=== PATIENT | female | born 1985 | race Caucasian/White ===

== ENCOUNTER 2018-01-22 11:25 | Emergency (ER) | payer BC, OTHER ==
[2018-01-22 11:33] VITALS: BP 133/85; PULSE 86; RESP 20; TEMP 98.1
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
[2018-01-22] MEDS ORDERED: IBUPROFEN 600 MG TAB PO STA (11:58)
== END 2018-01-22 12:10 | disposition home or self-care (01) ==
LOC: EC 11:25
DX: S51.851A Open bite of right forearm, initial encounter (principal); W50.3XXA Accidental bite by another person, initial encounter; Y92.69 Other specified industrial and construction area as the place of occurrence of the external cause; Y99.0 Civilian activity done for income or pay
CPT/HCPCS: 99282

== ENCOUNTER 2021-01-22 17:44 | Emergency (ER) | payer BC ==
[2021-01-22 18:18] VITALS: BP 148/76; PULSE 88; RESP 18; TEMP 98.2
--- NOTE | 2021-01-22 18:36 | ED ---
General Adult HPI - General Chief complaint: Skin/Abscess/Foreign Body Stated complaint: Belly button bleeding Time Seen by Provider: 01/22/21 18:35 Source: patient Mode of arrival: ambulatory Limitations: no limitations - History of Present Illness Initial comments: Patient presents to the ED complaining of having umbilical pain for the past 3 days. Patient states that she has noticed bloody discharge draining from her umbilicus today. Patient denies known trauma or injury, fever or chills, headache, chest pain, dyspnea, dizziness, abdominal pain, nausea/vomiting/diarrhea, dysuria or urinary symptoms, or any other symptoms or complaints. - Related Data Previous Rx's Medication Instructions Recorded Ibuprofen [Motrin] 600 mg PO Q6HR PRN #20 day 01/22/18 Doxycycline Hyclate 100 mg PO Q12H 7 Days #14 tab 01/22/21 Allergies Allergy/AdvReac Type Severity Reaction Status Date / Time No Known Allergies Allergy Verified 01/22/21 18:18 Review of Systems ROS Statement: Those systems with pertinent positive or pertinent negative responses have been documented in the HPI. ROS Other: All systems not noted in ROS Statement are negative. Past Medical History Past Medical History: Asthma Additional Past Medical History / Comment(s): pre-diabetic History of Any Multi-Drug Resistant Organisms: None Reported Additional Past Surgical History / Comment(s): wisdom teeth removal, hymenotomy Past Psychological History: Anxiety, Bipolar, Panic Disorder Smoking Status: Never smoker Past Alcohol Use History: None Reported Past Drug Use History: None Reported General Exam Limitations: no limitations General appearance: alert, in no apparent distress Head exam: Present: atraumatic, normocephalic Eye exam: Present: normal appearance ENT exam: Present: mucous membranes moist Neck exam: Present: other (Trachea is in midline) Respiratory exam: Present: normal lung sounds bilaterally. Absent: respiratory distress, wheezes, rales, rhonchi, stridor Cardiovascular Exam: Present: regular rate, normal rhythm, normal heart sounds, other (Normal radial pulses bilaterally) GI/Abdominal exam: Present: soft, other (Obese abdomen; a very small (ap proximately 1 cm), solid, tender mass is palpable deep in the patient's umbilicus superiorly; a small amount of bloody/purulent discharge is noted in the patient's umbilicus). Absent: guarding, rebound Neurological exam: Present: alert, oriented X3. Absent: motor sensory deficit Psychiatric exam: Present: normal affect, normal mood Skin exam: Present: warm, dry, normal color Course Vital Signs 01/22/21 18:15 Temperature 98.2 F Pulse Rate 88 Respiratory 18 Rate Blood Pressure 148/76 O2 Sat by Pulse 98 Oximetry Medical Decision Making - Medical Decision Making Patient has a draining umbilical abscess. Wound cultures were obtained. Patient was given a dose of oral doxycycline, as well as a prescription for a course of doxycycline to go home with. Patient was also instructed to apply warm compresses to her umbilicus frequency. Patient is afebrile. Patient was counseled about abscesses, and she was clearly explained return and follow-up instructions. She was instructed to follow up closely with her primary care provider. She feels comfortable with this plan. Disposition Clinical Impression: Abscess, umbilical Narrative: Draining umbilical abscess Disposition: HOME SELF-CARE Condition: Stable Instructions (If sedation given, give patient instructions): Abscess (ED) Additional Instructions: Return to the emergency department immediately should you develop new or worsening pain, a fever, feeling dizzy or faint, shortness of breath, or new or worsening symptoms. Follow up closely with your primary care provider. Prescriptions: Doxycycline Hyclate 100 mg PO Q12H 7 Days #14 tab Is patient prescribed a controlled substance at d/c from ED?: No Referrals: Julius Santillan DO [Primary Care Provider] - 1-2 days Time of Disposition: 18:52
[2021-01-22] MEDS ORDERED: DOXYCYCLINE 100 MG CAP PO STA (18:49)
== END 2021-01-22 19:00 | disposition home or self-care (01) ==
LOC: EC 17:44
DX: L02.216 Cutaneous abscess of umbilicus (principal)
CPT/HCPCS: 87070; 87075; 87205; 99283

== ENCOUNTER → 2021-02-09 | Outpatient (CLI) | payer BC ==
--- NOTE | 2021-02-09 18:27 | CONS ---
CONSULTATION DATE OF SERVICE: 02/09/2021 This 35-year-old lady has been re-evaluated in Sleep Center for treatment of obstructive sleep apnea-hypopnea syndrome. HISTORY OF PRESENT ILLNESS/SLEEP-WAKE EVALUATION: The patient had a diagnostic sleep study and PAP titration in our Sleep Center in 2014. Sleep study showed the patient has obstructive sleep apnea-hypopnea syndrome, and on CPAP her respiration was normalized. She was on treatment with CPAP in 2014, but then for different reasons stopped using her equipment. She brought her CPAP unit with her with all necessary CPAP supplies. I checked her CPAP unit. Range of the pressure in the machine is 8 cm of water, as was recommended by results of titration. At present the patient's sleep schedule on weekdays is from 10:30 p.m. until 6:30 or 7 a.m. and on weekends from 11:30 until 2. No problems with falling asleep. She has a TV set in her bedroom. She sleeps on the side position and sometimes in the chair. She wakes up from sleep up to 3 times. In the morning the patient wakes up tired, has difficulties paying attention, falling asleep during the day, worries about her sleep, has problems with memory, concentration, irritability, depression and anxiety. She has not used her CPAP equipment for several years. [place] Sleepiness Scale is in very high range at 16. PAST MEDICAL HISTORY: Positive for depression, anxiety, asthma, seasonal allergies, acne. PAST SURGICAL HISTORY: LASIK surgery for both eyes. MEDICATIONS: 1. Adderall 20 mg once a day. 2. Adderall XR 30 mg once a day. 3. Alprazolam 0.25 mg as needed. 4. Aripiprazole 15 mg once a day. 5. Lamotrigine 200 mg once a day. 6. Metformin once a day. 7. Sertraline 100 mg once a day. SOCIAL HISTORY: Negative for smoking or using alcohol. FAMILY HISTORY: Arthritis, cancer. REVIEW OF SYSTEMS: No fevers. No double vision. No recent chest pain. No shortness of breath. No abdominal pain. No bleeding episodes. No blood in the urine. No seizure episodes. Awakenings from sleep, sleepiness during the day. PHYSICAL EXAMINATION: GENERAL: Pleasant lady without distress. VITAL SIGNS: BP 122/85, HR 88, RR 12, height 5 feet 4-1/2 inches, weight 266 pounds. Body mass index 44.9. The patient's weight increased by about 40 pounds. Temperature 97.6, oxygen saturation at room air 97%. HEENT: PERRLA, EOMI, evaluation of oropharynx showed tongue protrudes midline. Low position of soft palate. NECK: Supple, no JVD. Thyroid is not palpable. Neck measures 16 inches in circumference. LUNGS: Clear to percussion and to auscultation. Good air exchange. No wheezing or rhonchi. HEART: S1, S2 regular. No murmurs, gallops, or rubs. ABDOMEN: Obese. EXTREMITIES: No clubbing or cyanosis. BRASS POURER: Awake, alert, and oriented X3. Cranial nerves 2 to 7 intact. There is no fasciculation or atrophy. noted. No focal deficits observed. IMPRESSION: 1. Snoring, multiple awakenings from sleep, obstructive sleep apnea-hypopnea syndrome by results of sleep study in 2015, wide neck, sleepiness, [place] Sleepiness Scale 16; obstructive sleep apnea-hypopnea syndrome. 2. Obesity; body mass index 44.9. 3. Significant excessive daytime sleepiness. [place] Sleepiness Scale is 16. Differential diagnosis may include hypersomnia or narcolepsy without cataplexy. 4. Depression. 5. Anxiety. 6. History of asthma. 7. History of seasonal allergies. 8. History of acne. PLAN: 1. The patient will start again to use her CPAP equipment and should use equipment every night for the whole night. We will start treatment with the same pressure as before, 8 cm of water. 2. Prescription for all necessary CPAP supplies, including trying a nasal pillow mask, AirFit P10. Change filters and tube. 3. Follow-up visit in 2 months to evaluate clinical response on treatment, compliance with treatment and to make any necessary adjustments related to mask fitting, pressure and humidification. If necessary, to change the pressure at that time because patient's weight has increased, as already mentioned above. 4. Losing weight. 5. Sleep hygiene with regular time in bed for at least 8 hours. 6. No driving if feeling sleepiness. Thank you very much for referring this patient for consultation. Sincerely, Jose Francisco Jimenes MD, PhD, FAASM Diplomat of [employer] Sleep Medicine Board of [employer] Locator Specialist of [facility] [place] MMODL / JUVE: [id number] /
== END ==
LOC: MERGE 16:00 → SLEEP 16:07
PROVIDERS: ATTEND Internal Medicine
DX: G47.33 Obstructive sleep apnea (adult) (pediatric) (principal); E66.9 Obesity, unspecified; F32.9 Major depressive disorder, single episode, unspecified; F41.9 Anxiety disorder, unspecified; J45.909 Unspecified asthma, uncomplicated; Z87.2 Personal history of diseases of the skin and subcutaneous tissue; Z68.41 Body mass index [BMI] 40.0-44.9, adult; Z99.89 Dependence on other enabling machines and devices
CPT/HCPCS: 99211

== ENCOUNTER → 2021-04-06 | Outpatient (CLI) | payer BC ==
--- NOTE | 2021-04-06 21:37 | SFUN ---
SLEEP CENTER FOLLOW UP NOTE DATE OF SERVICE: 04/06/2021 This 35-year-old lady has been followed in Sleep Center for treatment of obstructive sleep apnea-hypopnea syndrome. I saw the patient about 2 months ago. She complained about feeling sleepiness during the day and she was recommended to restart her CPAP therapy. Subsequently I ordered for her all necessary CPAP supplies. The patient started to use her CPAP equipment again, but she continues to feel sleepy during the day even while using her CPAP machine. [place] Sleepiness Scale today is 19. She has a positive history of sleep paralysis in the past. I checked her CPAP unit. Pressure is 8 cm of water, usage / nights and nights more than 4 hours. Average usage is 7 hours per night. Leak is only 6 L/minute, which is within normal range. Apnea-hypopnea index is 2.0, which is normal. CURRENT MEDICATIONS: 1. Adderall 30 mg in the morning, and then patient additionally takes during the day Adderall 20 mg one to two times. 2. Metformin 500 mg once a day. 3. Zoloft 100 mg two pills a day. 4. Lamictal 200 mg two pills a day. 5. Abilify 10 mg one pill a day. PHYSICAL EXAMINATION: GENERAL: Pleasant patient in no distress. VITAL SIGNS: BP 127/85, HR 92, RR 15, height 5 feet 4 inches, weight 276.2, body mass index 47.3, temperature 97.3, oxygen saturation at room air 99%. HEENT: PERRLA, EOMI, evaluation of oropharynx showed tongue protrudes midline. Low position of soft palate. NECK: Supple, no JVD. Thyroid is not palpable. LUNGS: Clear to percussion and to auscultation. Good air exchange. No wheezing or rhonchi. HEART: S1, S2 regular. No murmurs, gallops, or rubs. ABDOMEN: Obese. EXTREMITIES: No clubbing or cyanosis. ASSET MANAGER: Awake, alert, and oriented X3. Cranial nerves 2 to 7 intact. There is no fasciculation or atrophy. noted. No focal deficits observed. IMPRESSION: 1. Obstructive sleep apnea-hypopnea syndrome. Patient demonstrated good compliance with treatment. Normalization of respiration on CPAP. 2. While she demonstrated good compliance with CPAP therapy, the patient continued to feel significant sleepiness. [place] Sleepiness Scale today is in extremely high range at 19. 3. Obesity. 4. Depression. 5. Anxiety. 6. History of asthma. 7. History of seasonal allergies. 8. History of acne. PLAN: 1. One night on CPAP with PSG in Sleep Clinic with a following multiple sleep latency test for objective evaluation patient's symptoms of excessive daytime sleepiness. 2. Patient will not take any Adderall on the day when we do the sleep study. 3. Preferably the patient should be off her psychiatric medications, but it is impossible to do because of her situation. 4. No driving if feeling sleepiness. 5. Sleep hygiene with regular time in bed for at least 7-1/2 to 8 hours. 6. Following plan after reviewing results of sleep study with [facility]. Thank you very much for allowing me to participate in the management of your patient. Sincerely, Jose Francisco Jimenes MD, PhD, FAASM Diplomat of [employer] Sleep Medicine Board of [employer] Account Executive of [facility] [place] MMODL / VERONICAN: [id number] /
== END ==
LOC: SLEEP 16:06
PROVIDERS: ATTEND Internal Medicine
DX: G47.33 Obstructive sleep apnea (adult) (pediatric) (principal); E66.9 Obesity, unspecified; F32.A Depression, unspecified; F41.9 Anxiety disorder, unspecified; J45.909 Unspecified asthma, uncomplicated; Z87.2 Personal history of diseases of the skin and subcutaneous tissue; Z99.89 Dependence on other enabling machines and devices; Z68.42 Body mass index [BMI] 45.0-49.9, adult; Z87.892 Personal history of anaphylaxis

== ENCOUNTER → 2021-05-18 | Outpatient (CLI) | payer BC ==
--- NOTE | 2021-05-18 21:00 | SFUN ---
SLEEP CENTER FOLLOW UP NOTE DATE OF SERVICE: 05/18/2021 This 35-year-old lady has been followed in Sleep Center for treatment of obstructive sleep apnea-hypopnea syndrome. She is here to discuss results of her multiple sleep latency test which was done recently. I discussed results of sleep studies with the patient in detail. During the night, patient was on CPAP and her respiration fully normalized during CPAP titration. She had a multiple sleep latency test on the following day which consisted of 5 naps. She fell asleep extremely quickly and showed pathological sleepiness with a mean sleep latency of 3.6 minutes, which is extremely short. At the present time patient is on treatment with Adderall, which has been prescribed to her by a psychiatrist, and with the higher dose of Adderall she feels well during the day. Her sleepiness is under control. I checked her CPAP unit. Usage is 19/30 nights, and 17/30 nights for the last month, average 6.2 hours per night. Leak is 6 L/minute. Apnea-hypopnea index 3.6 with the pressure 8 cm of water. MEDICATIONS: 1. Adderall. 2. Alprazolam 0.25 mg as needed. 3. Aripiprazole 15 mg once a day. 4. Lamotrigine 200 mg once a day. 5. Metformin once a day. 6. Sertraline 100 mg once a day. PHYSICAL EXAMINATION: GENERAL: Pleasant patient in no distress, VITAL SIGNS: BP 116/83, HR 107, RR 16, temperature 97.2, oxygen saturation at room air 93%. HEENT: PERRLA, EOMI, evaluation of oropharynx showed tongue protrudes midline. Low position of soft palate. NECK: Supple, no JVD. Thyroid is not palpable. LUNGS: Clear to percussion and to auscultation. Good air exchange. No wheezing or rhonchi. HEART: S1, S2 regular. No murmurs, gallops, or rubs. ABDOMEN: Slightly obese. EXTREMITIES: No clubbing or cyanosis. CONTINUOUS IMPROVEMENT COACH: Awake, alert, and oriented X3. Cranial nerves 2 to 7 intact. There is no fasciculation or atrophy. noted. No focal deficits observed. IMPRESSION: 1. Obstructive sleep apnea-hypopnea syndrome, under full control with CPAP. Patient demonstrated borderline compliance with CPAP treatment. 2. Multiple sleep latency test confirmed pathological sleepiness. No sleep-onset REM periods have been documented, but sleepiness is very short; most probably narcolepsy. 3. Depression. 4. Anxiety. 5. History of asthma. 6. History of seasonal allergies. 7. History of acne. PLAN: 1. Patient will continue on treatment with Adderall. 2. I adjusted the pressure in CPAP unit up to 10 cm of water. 3. Patient will continue to use PAP equipment every night for the whole night. 4. Sleep hygiene with regular time in bed for at least 7-1/2 to 8 hours. 5. Precautions related to driving. No driving if feeling sleepiness. 6. I will maintain all necessary prescription for PAP supplies including mask, tube, filters. 7. Watching weight. 8. Daytime naps permitted. 9. Follow-up visit in 6 months or earlier if patient has any problems. Thank you very much for allowing me to participate in the management of your patient. Sincerely, Jose Francisco Jimenes MD, PhD, FAASM Diplomat of [employer] Sleep Medicine Board of [employer] [facility]uggyman [facility] [place] MMODL / VERONICAN: [id number] /
== END ==
LOC: SLEEP 16:03
PROVIDERS: ATTEND Internal Medicine
DX: G47.33 Obstructive sleep apnea (adult) (pediatric) (principal); F32.A Depression, unspecified; F41.9 Anxiety disorder, unspecified; J45.909 Unspecified asthma, uncomplicated; Z87.2 Personal history of diseases of the skin and subcutaneous tissue; Z91.048 Other nonmedicinal substance allergy status; Z99.89 Dependence on other enabling machines and devices

== ENCOUNTER 2022-03-05 21:18 | Emergency (ER) | payer BC ==
[2022-03-05 21:48] VITALS: TEMP 98.2
[2022-03-05] MEDS ORDERED: LIDOCAINE 1%-EPI 1:100,000 20 ML VIAL SQ STA (22:20)
[2022-03-05] MEDS ORDERED: DIPH,PERTUS(ACELL)TETVAC-LF 0.5 ML VIAL IM ONE (22:22)
[2022-03-05] MEDS ORDERED: DOXYCYCLINE 100 MG CAP PO STA (22:23)
--- NOTE | 2022-03-05 22:38 | ED ---
General Adult HPI - General Chief complaint: Recheck/Abnormal Lab/Rx Stated complaint: Tick Time Seen by Provider: 03/05/22 22:20 Source: patient, RN notes reviewed Mode of arrival: ambulatory Limitations: no limitations - History of Present Illness Initial comments: Is a pleasant 36-year-old female presents to the emergency room after having a tick embedded in her right upper arm. Patient tried to get out of home with tweezers. Unfortunately she has left some of the tick parts embedded in the skin. Patient has no idea how long the tick was embedded. No headache, no fever or chills, no changes in vision or hearing, no sore throat or difficulty with speech, no neck pain, no chest pain or shortness of breath, no abdominal pain, no nausea or vomiting, no changes in urination or bowel movements, no numbness or tingling, no extremity pain, no skin rashes or lesions. Past medical, surgical, social, and family history reviewed. - Related Data Home Medications Medication Instructions Recorded Confirmed ALPRAZolam [Xanax] 0.25 mg PO QAM 12/17/15 12/17/15 ALPRAZolam [Xanax] 0.5 mg PO HS 12/17/15 12/17/15 Albuterol Inhaler [Ventolin Hfa 1 - 2 puff INHALATION DAILY PRN 12/17/15 12/17/15 Inhaler] LORazepam [Ativan] 1 - 2 mg PO DAILY PRN 12/17/15 12/17/15 Levocetirizine Dihydrochloride 5 mg PO DAILY PRN 12/17/15 12/17/15 Sertraline HCl [Zoloft] 200 mg PO QAM 12/17/15 12/17/15 Previous Rx's Medication Instructions Recorded Ibuprofen [Motrin] 600 mg PO Q6HR PRN #20 day 01/22/18 Doxycycline Hyclate 100 mg PO Q12H 7 Days #14 tab 01/22/21 Cephalexin [Keflex] 500 mg PO Q6HR 7 Days #28 cap 08/25/21 Docusate [Colace] 100 mg PO DAILY 30 Days #30 capsule 08/25/21 Allergies Allergy/AdvReac Type Severity Reaction Status Date / Time No Known Allergies Allergy Verified 03/05/22 21:48 Review of Systems ROS Statement: Those systems with pertinent positive or pertinent negative responses have been documented in the HPI. ROS Other: All systems not noted in ROS Statement are negative. Past Medical History Past Medical History: Asthma, No Reported History Additional Past Medical History / Comment(s): pre-diabetic History of Any Multi-Drug Resistant Organisms: None Reported Past Surgical History: No Surgical Hx Reported Additional Past Surgical History / Comment(s): wisdom teeth removal, hymenotomy Past Psychological History: Anxiety, Bipolar, Depression, Panic Disorder Smoking Status: Never smoker Past Alcohol Use History: Occasional Past Drug Use History: None Reported General Exam Limitations: no limitations General appearance: alert, in no apparent distress Head exam: Present: atraumatic, normocephalic, normal inspection Eye exam: Present: normal appearance, EOMI Neck exam: Present: normal inspection Respiratory exam: Present: normal lung sounds bilaterally. Absent: respiratory distress, wheezes, rales, rhonchi, stridor Cardiovascular Exam: Present: regular rate, normal rhythm, normal heart sounds. Absent: systolic murmur, diastolic murmur, rubs, gallop, clicks GI/Abdominal exam: Present: soft. Absent: tenderness Extremities exam: Present: full ROM, normal capillary refill, other (Patient has what appears to be tick parts embedded in her skin of the posterior aspect of her right upper arm.). Absent: tenderness Back exam: Present: normal inspection Course Vital Signs 03/05/22 21:43 Temperature 98.2 F Pulse Rate 89 Respiratory 18 Rate Blood Pressure 153/104 O2 Sat by Pulse 97 Oximetry Procedures - Procedures Initial comment: Patient's right arm was prepped and draped in sterile fashion. Area was prepped with Betadine and alcohol. Retained tick parts were removed with sterile forceps and a #11 blade scalpel. Patient tolerated well. Area was cleansed thoroughly with saline and alcohol. Bacitracin applied. Sterile Band-Aid applied. Patient did have a bit of a vasovagal episode after the procedure. Zofran ODT was given. Patient was observed Medical Decision Making - Medical Decision Making Patient presented to the right arm with retained tick parts after she attempted to remove a tick from her right upper arm. Patient was unsure how long the tick had been embedded. Doxycycline 200 mg by mouth was given for prophylaxis. Tick parts were removed by me with sterile forceps and a #11 blade scalpel. Patient did have a bit of a vasovagal episode after the procedure but otherwise tolerated well. Wound care discussed, signs and symptoms of infection discussed. Follow-up discussed. Patient was told to return to the ER for any signs or symptoms worsen. Told to return immediately if any other problems arise. All questions answered. Treatment plan discussed. Patient in agreement Every effort has been made to ensure accuracy of this dictation. However, due to the limitations of electronic medical records and dictation devices, errors in charting still occur. The case was discussed in detail with ED attending physician. Presentation, findings, treatment plan discussed in detail. Meter Calibrator Dr. Wilson Disposition Clinical Impression: Tick bite of right upper arm Disposition: HOME SELF-CARE Condition: Good Instructions (If sedation given, give patient instructions): Acute Wound Care (ED) Additional Instructions: Wash the wound daily with soap and water. Apply a thin layer of antibiotic ointment such as Neosporin atrip automatically. Keep covered with a Band-Aid. Diphtheria, tetanus, pertussis were updated here today. Follow-up with your regular physician as directed. Return to the ER immediately if any symptoms worsen, new symptoms arise, or any other problems develop Is patient prescribed a controlled substance at d/c from ED?: No Referrals: Julius Santillan DO [Primary Care Provider] - 03/07/22 Time of Disposition: 23:24
[2022-03-05] MEDS ORDERED: BACITRACIN OINT 1 EACH PACKET TOPICAL ONE (23:12)
[2022-03-05] MEDS ORDERED: ONDANSETRON ODT 4 MG TAB PO STA (23:22)
[2022-03-06 00:01] VITALS: BP 140/100; PULSE 70; RESP 16
== END 2022-03-06 00:01 | disposition home or self-care (01) ==
LOC: EC 21:18
DX: S60.561A Insect bite (nonvenomous) of right hand, initial encounter (principal); J45.909 Unspecified asthma, uncomplicated; Z23 Encounter for immunization; Z79.51 Long term (current) use of inhaled steroids; W57.XXXA Bitten or stung by nonvenomous insect and other nonvenomous arthropods, initial encounter
CPT/HCPCS: 90471; 90715; 99283

== ENCOUNTER → 2022-08-16 | Outpatient (CLI) | payer BC ==
--- NOTE | 2022-08-16 17:36 | P.PN ---
Subjective DATE: 08/16/2022 FOLLOW UP VISIT. Patient with obstructive sleep apnea hypopnea syndrome and significant excessive daytime sleepiness with mean sleep latency 3.6 minutes by M TUT possible narcolepsy return to sleep center for follow-up visit. Recently patient received new CPAP unit. Information from previous visit have been reviewed. Patient is using PAP equipment every night for the whole night, getting PAP supplies in time. The patient does not have significant problems with the mask, PAP unit and humidification. [place] sleepiness scale is increased to 16. I checked information from PAP unit. PAP unit pressure is 10 cm H2O. Usage is borderline Leak is 5.8 l/m, which is in acceptable range. Apnea Hypopnea Index is 0.5, which is normal. Patient is on treatment with Adderall and modafinil for excessive daytime sleepiness, possible narcolepsy. MEDICATIONS:1. Adderall XR 30 mg once a day 2. Modafinil 200 mg a day 3. Xanax 0.25 mg as needed 4. Metformin 500 mg once a day 5. Latuda 120 mg once a day 6. Sertraline 200 mg once a day During physical exam: GENERAL: A pleasant patient without any distress. VITAL SIGNS: BP 137/90, HR 90, RR 16, weight to 82, temperature 98.1, oxygen saturation at room air 97 % . HEENT: PERRLA, EOMI.low position of soft palate, Mallapati 3. NECK: Supple. No JVD. LUNGS: Clear to percussion and to auscultation. Good air exchange. No wheezing or rhonchi. HEART: S1, S2 regular. ABDOMEN: Soft and nontender. Obese EXTREMITIES: No clubbing or cyanosis. TALENT COORDINATOR: Awake, alert, and oriented x3. No focal deficit. Impressions: 1. Obstructive sleep apnea-hypopnea syndrome. Patient demonstrated borderline compliance with treatment, benefiting from treatment. 2. Significant excessive daytime sleepiness confirmed by multiple sleep latency test with extremely short mean sleep latency 3.6 minutes, although without sleep onset REM periods most probably indicate narcolepsy. Absence of sleep onset REM periods could be related to usage of medications. 3. Anxiety. 4. Depression. 5. Seasonal ALLERGY. 6. History of asthma. 7. History of acne. Plan: 1. Continue using PAP equipment every night for the whole night. 2. To change air filter at least 1-2 times per month. 3. PAP unit should stay lower then position of the head. 4. Advised patient to remove all remaining water from humidifier canister daily and make it dry after each usage. Refill canister with fresh distilled water before each usage. 5. Sleep hygiene with regular time in bed for at least 8 hours. 6. Precautions related to driving. No driving if feel any sleepiness. 7. I will maintain prescription for PAP supplies including mask, tube, filters. 8. Patient will continue treatment with Adderall and modafinil to prevent excessive daytime sleepinessl. 9. Watching and losing weight. 10.Follow up visit in 6 months or earlier if patient has any problems. Thank you very much for allowing me to participate in the management of your patient. Jose Francisco Jimenes MD, PhD, FAASM. Diplomat of [place] [employer], Sleep Medicine Board by [employer] [facility] [place]
== END ==
LOC: SLEEP 16:48
PROVIDERS: ATTEND Internal Medicine
DX: G47.33 Obstructive sleep apnea (adult) (pediatric) (principal); Z99.89 Dependence on other enabling machines and devices; F32.A Depression, unspecified; F41.9 Anxiety disorder, unspecified; J45.909 Unspecified asthma, uncomplicated; Z87.2 Personal history of diseases of the skin and subcutaneous tissue
CPT/HCPCS: 99211

== ENCOUNTER → 2022-11-28 | Outpatient (CLI) | payer BC ==
[2022-11-28 15:42] VITALS: BP 126/87; PULSE 96; RESP 16; TEMP 98.3; BMI 48.8
--- NOTE | 2022-11-28 17:09 | P.HPBAR ---
Bariatric H&P - History & Physicial H&P Date: 11/28/22 History & Physicial: Visit/CC: Initial Patient initial contact: Initial weight: 131.088 kg Initial weight in pounds: 289.00 Height: 5 ft 4.5 in Initial BMI: 48.8 Last weight: Current weight: 131.088 kg Current weight in pounds: 289.00 Current BMI: 48.8 Douglass body weight (based on NIH guidelines): 55.565 kg Excess body weight loss: 0.0% The patient is a 37 year-old F who presents for Bariatric Assessment. Patient presents to the [facility] clinic with her mother. She is interested in weight loss surgery. Patient's mother had previous Valerie-en-Y gastric bypass. Patient says she does not want to have the bowel issues that her mother had after her surgery. Past medical history includes bipolar disorder, hypersomnia, sleep apnea. No tobacco use. No history of DVT or dysphagia. Minimal reflux symptoms. No nausea or vomiting. No abdominal surgeries. Review of Systems The patient denies any acute changes in vision or hearing, no dysphagia or odynophagia, no chest pain or shortness of breath, no dysuria or hematuria, no headache, no runny nose, no rectal bleeding or melena, no unexplained weight loss Past Medical History Past Medical History: Asthma, No Reported History Additional Past Medical History / Comment(s): pre-diabetic History of Any Multi-Drug Resistant Organisms: None Reported Past Surgical History: No Surgical Hx Reported Additional Past Surgical History / Comment(s): wisdom teeth removal, hymenotomy Smoking Status: Never smoker, Unknown if ever smoked Surgical - Exam Vital Signs Temp Pulse Resp BP 98.3 F 96 16 126/87 11/28/22 15:39 11/28/22 15:39 11/28/22 15:39 11/28/22 15:39 Physical exam: General: Well-developed, well-nourished HEENT: Normocephalic, sclerae nonicteric Abdomen: Nontender, nondistended Extremities: No edema Neuro: Alert and oriented Bariatric Assessment & Plan (1) Morbid obesity Narrative/Plan: 37-year-old female with morbid obesity and associated comorbidities. BMI today 48. Surgical and nonsurgical approaches to obesity reviewed. Surgical options including the risks and benefits and anticipated weight loss amounts discussed in detail as well. Currently patient most interested in sleeve gastrectomy. We'll proceed with preoperative upper endoscopy in the near future. Await appropriate supporting documentation from medicine and psychiatry. Patient will follow back in the clinic after upper endoscopy performed. Status: Acute Bariatric Checklist Checklist: Plan: Checklist: EGD: 1. Hiatal hernia: 2. H. Pylori: HgbA1c: Vitamin D: Smoking: Never smoker Primary care physician referral: Dr. Santillan Psychiatry clearance: Cardiology clearance: Sleep study: Diet journal: VTE risk score: VTE risk level: Rehab needs at discharge:
== END ==
LOC: BARWHC3 15:01
PROVIDERS: ATTEND Surgery
DX: E66.01 Morbid (severe) obesity due to excess calories (principal); G47.30 Sleep apnea, unspecified; F31.9 Bipolar disorder, unspecified; K21.9 Gastro-esophageal reflux disease without esophagitis; J45.909 Unspecified asthma, uncomplicated; E11.9 Type 2 diabetes mellitus without complications; Z88.1 Allergy status to other antibiotic agents; Z68.42 Body mass index [BMI] 45.0-49.9, adult
CPT/HCPCS: 99202

== ENCOUNTER 2022-12-19 12:27 | Day surgery (SDC) | payer BC ==
[2022-12-12 13:05] VITALS: BMI 50.1
[~2022-12-19 12:27] MED LIST: LACTATED RINGERS 1,000 ML IV SCH
[2022-12-19 13:25] VITALS: TEMP 98
[2022-12-19] MEDS ORDERED: PROPOFOL 10 MG/ML 20 ML VIAL IV ONE (13:35)
[2022-12-19] MEDS ORDERED: diphenhydrAMINE 50 MG/ML 1 ML VIAL ONE (13:35)
[2022-12-19] MEDS ORDERED: DEXAMETHASONE SOD PHOSPHATE 4 MG/ML 1 ML VIAL ONE (13:35)
[2022-12-19] MEDS ORDERED: ONDANSETRON 4 MG/2 ML VIAL ONE (13:35)
--- NOTE | 2022-12-19 13:36 | P.GSHP ---
History of Present Illness H&P Date: 12/19/22 Chief Complaint: GERD 37-year-old female here today for upper endoscopy. Patient being evaluated for possible sleeve gastrectomy. Mild reflux symptoms at times. No dysphagia. Past Medical History Past Medical History: No Reported History, Asthma, Diabetes Mellitus, Sleep Apnea/CPAP/BIPAP Additional Past Medical History / Comment(s): pre-diabetic , bipolar, idiopathic hypersomnia, anxiety disorder History of Any Multi-Drug Resistant Organisms: None Reported Past Surgical History: No Surgical Hx Reported Additional Past Surgical History / Comment(s): wisdom teeth removal, hymenotomy 2018, 2009 lasic eye surgery both Past Anesthesia/Blood Transfusion Reactions: No Reported Reaction Additional Past Anesthesia/Blood Transfusion Reaction / Comment(s): No blood transfusion Smoking Status: Never smoker, Unknown if ever smoked - Past Family History Sister(s) Family Medical History: Cancer Additional Family Medical History / Comment(s): thyroid Father Family Medical History: Cancer Additional Family Medical History / Comment(s): skin Medications and Allergies Home Medications Medication Instructions Recorded Confirmed Type ALPRAZolam [Xanax] 0.25 mg PO QAM 12/17/15 12/19/22 History Dextroamphetamine/Amphetamine 30 mg PO DAILY 11/29/22 12/19/22 History [Adderall Xr 30 mg Capsule] Dextroamphetamine/Amphetamine 20 mg PO DAILY 11/29/22 12/19/22 History [Dextroamp-Amphetamin 20 mg Tab] EPINEPHrine (Auto Inject) [Epipen] 0.3 mg SQ DIRECTED 11/29/22 12/19/22 History Fexofenadine HCl [Dayna Allergy] 180 mg PO DAILY 11/29/22 12/19/22 History Lurasidone HCl [Latuda] 120 mg PO DAILY 11/29/22 12/19/22 History Sertraline [Zoloft] 200 mg PO DAILY 11/29/22 12/19/22 History modafiniL [Provigil] 200 mg PO BID 11/29/22 12/19/22 History metFORMIN HCL 500 mg PO DAILY 12/12/22 12/19/22 History Allergies Allergy/AdvReac Type Severity Reaction Status Date / Time doxycycline Allergy Anaphylaxis Verified 12/19/22 13:17 Surgical - Exam Vital Signs Temp Pulse Resp BP Pulse Ox 98.0 F 77 18 131/60 97 12/19/22 13:23 12/19/22 13:23 12/19/22 13:23 12/19/22 13:23 12/19/22 13:23 Physical exam: General: Well-developed, well-nourished HEENT: Normocephalic, sclerae nonicteric Abdomen: Nontender, nondistended Extremities: No edema Neuro: Alert and oriented Assessment and Plan (1) GERD (gastroesophageal reflux disease) Narrative/Plan: Will proceed with upper endoscopy Current Visit: Yes Status: Acute Code(s): K21.9 - GASTRO-ESOPHAGEAL REFLUX DISEASE WITHOUT ESOPHAGITIS SNOMED Code(s): 863334243
[2022-12-19 13:39] LABS: Glucose,Whole Blood 114 mg/dL (70-110)
--- NOTE | 2022-12-19 13:45 | P.PCN ---
Date of Procedure: 12/19/22 Procedure(s) Performed: Preoperative Dx: GERD, presurgical Postoperative Dx: Mild gastritis Procedure: EGD with Bx Anesthesia: Sedation Endoscopist: Dr. Headley Specimens: Antrum Endoscopic Procedure: The patient was on the endoscopy table in the left decubitus position. The Olympus gastroscope was inserted into the oropharynx and passed under direct visualization to the region of the third portion of the duodenum. From that point the scope was slowly withdrawn inspecting all surfaces carefully. There were no neoplastic inflammatory or polypoid lesions throughout the duodenum. The pylorus was widely patent. The stomach was carefully inspected. There was mild gastritis. A biopsy of the antrum took place to rule out H. pylori. Retroflexion revealed a normal hiatus. The esophagus was then carefully examined. There were no neoplastic inflammatory or polypoid lesions throughout the visualized esophagus. The patient was then taken to the recovery room in stable condition per anesthesia guidelines. Recommendations: Await biopsy results. Follow-up bariatric center.
[2022-12-19 14:01] LABS: Glucose,Whole Blood 111 mg/dL (70-110)
[2022-12-19 14:22] VITALS: BP 113/76; PULSE 70; RESP 18
== END 2022-12-19 14:54 | disposition home or self-care (01) ==
LOC: ORWHC2ENDO 12:27
PROVIDERS: ATTEND Surgery
DX: K29.50 Unspecified chronic gastritis without bleeding (principal); K21.9 Gastro-esophageal reflux disease without esophagitis; E11.9 Type 2 diabetes mellitus without complications; G47.30 Sleep apnea, unspecified; F41.9 Anxiety disorder, unspecified; Z83.49 Family history of other endocrine, nutritional and metabolic diseases; Z79.84 Long term (current) use of oral hypoglycemic drugs; Z79.899 Other long term (current) drug therapy
CPT/HCPCS: 81025; 88305; 43239; J1200; J1100; J2405; J2704

== ENCOUNTER → 2023-01-01 | Outpatient (CLI) | payer BC | END | disposition home or self-care (01) | LOC: LABWHC1 15:46 | PROVIDERS: ATTEND Surgery | DX: Z71.51 Drug abuse counseling and surveillance of drug abuser (principal); E66.01 Morbid (severe) obesity due to excess calories; E55.9 Vitamin D deficiency, unspecified; K90.89 Other intestinal malabsorption; R94.31 Abnormal electrocardiogram [ECG] [EKG] | CPT/HCPCS: 36415; 80323; 93005 ==

== ENCOUNTER → 2023-01-29 | Outpatient (CLI) | payer BC ==
--- NOTE | 2023-01-30 08:07 | US ---
EXAMINATION TYPE: US transvaginal DATE OF EXAM: 01/29/2023 COMPARISON: NONE CLINICAL INDICATION: Female, 37 years old with history of N93.9 ABNORMAL UTERINE AND VAGINAL BLEEDING , UNSPE; Pt states abnormal menses TECHNIQUE: Transvaginal (TV). Transabdominal sonographic images of the pelvis were acquired. Date of LMP: 01/19/2023 EXAM MEASUREMENTS: Uterus: 6.4 x 3.1 x 2.9 cm Endometrial Stripe: 0.5 cm Right Ovary: 2.7 x 1.9 x 2.5 cm Large pt body habitus, difficult to visualize pelvis 1. Uterus: Anteverted Heterogeneous, difficult to penetrate 2. Endometrium: wnl 3. Right Ovary: wnl 4. Left Ovary: Obscured by overlying bowel gas 5. Bilateral Adnexa: wnl 6. Posterior cul-de-sac: wnl IMPRESSION: 1. Diffuse originating of the uterine myometrium is nonspecific and could reflect small leiomyomatous change versus adenomyosis. Correlate clinically.
== END | disposition home or self-care (01) ==
LOC: RADUSWWP 15:39
PROVIDERS: ATTEND Obstetrics & Gynecology
DX: N93.9 Abnormal uterine and vaginal bleeding, unspecified (principal)
CPT/HCPCS: 76830

== ENCOUNTER → 2023-01-30 | Outpatient (CLI) | payer BC ==
[2023-01-30 16:12] VITALS: BP 128/84; PULSE 107; RESP 16; TEMP 97.7; BMI 50.0
--- NOTE | 2023-01-30 16:44 | P.BASOAP ---
Subjective Progress Note Date: 01/30/23 Principal diagnosis: Morbid obesity 37-year-old female returns after recent EGD. Patient being seen preoperatively for planned sleeve gastrectomy. Recent EGD showed mild gastritis. Biopsies were negative for H. pylori. BMI today 50. No change in her medications. She has been seen by psychiatry. Apparently her psychiatrist would like her started on a oral medication to help avoid manic episodes postoperatively given the low calorie diet. Objective - Vital Signs Vital signs: Vital Signs Temp 97.7 F 01/30/23 16:09 Pulse 107 H 01/30/23 16:09 Resp 16 01/30/23 16:09 BP 128/84 01/30/23 16:09 Pulse Ox FiO2 Intake & Output 01/29/23 01/30/23 01/30/23 18:59 06:59 18:59 Weight 134.263 kg - Exam Abdomen: Soft, nontender, nondistended Assessment/Plan (1) Morbid obesity Narrative/Plan: 37-year-old female with morbid obesity and associated comorbid disease. Will tend was scheduled for laparoscopic robotic-assisted sleeve gastrectomy, possible open in the next several months. The risks of bleeding, infection, stenosis, stricture, leak, abscess, fistula formation, peritonitis, poor weight loss, reflux, vomiting, conversion to an open procedure, aborting sleeve gastrectomy, NV, PE, DVT, and were discussed. The patient understands and wishes to proceed. Plan: Date: 01/30/23 Initial Weight: 131.088 kg Initial BMI: 48.8 Current Weight: 134.263 kg Current BMI: 50.0 Type of Surgery: Total Volume in Band: Previous Volume: Volume Removed: Volume Added: Band Size:
== END ==
LOC: BARWHC3 15:59
PROVIDERS: ATTEND Surgery
DX: E66.01 Morbid (severe) obesity due to excess calories (principal); K21.9 Gastro-esophageal reflux disease without esophagitis; Z98.84 Bariatric surgery status; Z68.43 Body mass index [BMI] 50.0-59.9, adult; Z88.8 Allergy status to other drugs, medicaments and biological substances
CPT/HCPCS: 99211

== ENCOUNTER → 2023-02-26 | Outpatient (CLI) | payer BC ==
[2023-02-26 14:29] VITALS: BMI 49.6
== END ==
LOC: BARWHC3 13:07
PROVIDERS: ATTEND Surgery
DX: E66.01 Morbid (severe) obesity due to excess calories (principal); Z71.3 Dietary counseling and surveillance; Z68.42 Body mass index [BMI] 45.0-49.9, adult; Z88.1 Allergy status to other antibiotic agents
CPT/HCPCS: 97804

== ENCOUNTER → 2023-03-08 | Outpatient (CLI) | payer BC ==
--- NOTE | 2023-03-08 17:33 | P.PN ---
Subjective DATE: 03/08/2023 FOLLOW UP VISIT. Patient with obstructive sleep apnea hypopnea syndrome and possible narcolepsy return to sleep center for follow-up visit. Information from previous visit have been reviewed. Patient continued treatment with Adderall and modafinil for excessive daytime sleepiness. Patient is using PAP equipment every night for the whole night, getting PAP supplies in time. Patient developed bleeding discharges from the nose. [place] sleepiness scale is 17. I checked information from PAP unit. PAP unit pressure 10 cm H2O. Usage is 53 % for more then 4 hours, average 7.5 hours per night. Leak is perfect 2.0 l/m. Apnea Hypopnea Index is 1.3, which is normal. Humidifier is at the level 4, but patient does not put water to humidifier at night. MEDICATIONS:1. Adderall XL 30 mg once a day 2. Dextroamphetamine/amphetamine 20 mg once a day 3. Modafinil 200 mg twice a day 4. Sertraline 200 mg once a day 5. Metformin 500 mg once a day 6. Lurasidon 120 mg once a day During physical exam: GENERAL: A pleasant patient without any distress. VITAL SIGNS: BP 142/94, HR 110, RR 18, weight 298.2, temperature 98.1, oxygen saturation at room air 99 % . HEENT: PERRLA, EOMI.low position of soft palate, Mallapati 3 . NECK: Supple. No JVD. LUNGS: Clear to percussion and to auscultation. Good air exchange. No wheezing or rhonchi. HEART: S1, S2 regular. ABDOMEN: Soft and nontender.slightly obese EXTREMITIES: No clubbing or cyanosis. SHAFTING CLEANER: Awake, alert, and oriented x3. No focal deficit. Impressions: 1. Obstructive sleep apnea-hypopnea syndrome. Patient demonstrated great compliance with treatment, benefiting from treatment. 2. patient does not use water with heated humidifier, which could be the reason for bloody discharges from the nose. Patient promised to pour water to humidifier. 3. Narcolepsy confirmed by multiple sleep latency test with mean sleep latency 3.6 minutes. No sleep onset REM periods have been documented which could be secondary to usage SSRIs. 4. Anxiety. 5. Depression. 6. seasonal ALLERGY. 7. History of asthma. 8. History of acne. Plan: 1. Continue using PAP equipment every night for the whole night. 2. To change air filter at least 1-2 times per month. 3. PAP unit should stay lower then position of the head. 4. Advised patient to remove all remaining water from humidifier canister daily and make it dry after each usage. Refill canister with fresh distilled water before each usage. 5. Sleep hygiene with regular time in bed for at least 8 hours. 6. Precautions related to driving. No driving if feel any sleepiness. 7. I will maintain prescription for PAP supplies including mask, tube, filters. 8. Follow up visit in 6 months or earlier if patient has any problems. 9. Watching and losing weight. Thank you very much for allowing me to participate in the management of your patient. Jose Francisco Jimenes MD, PhD, FAASM. Diplomat of [place] [employer], Sleep Medicine Board by [place] [employer] [address] [facility] [place]
== END ==
LOC: 3 N SLEEP 16:33
PROVIDERS: ATTEND Internal Medicine
DX: G47.33 Obstructive sleep apnea (adult) (pediatric) (principal); F32.A Depression, unspecified; J45.909 Unspecified asthma, uncomplicated; F41.9 Anxiety disorder, unspecified; G47.419 Narcolepsy without cataplexy; Z79.84 Long term (current) use of oral hypoglycemic drugs; Z99.89 Dependence on other enabling machines and devices; Z88.8 Allergy status to other drugs, medicaments and biological substances; Z79.899 Other long term (current) drug therapy
CPT/HCPCS: 99212

== ENCOUNTER → 2023-04-16 | Outpatient (CLI) | payer BC ==
[2023-04-16 20:56] LABS: HCT 41.8 % (37.2-46.3); HGB 13.5 g/dL (12.0-15.0); MCH 29.4 pg (27.0-32.0); MCHC 32.3 g/dL (32.0-37.0); MCV 91.1 FL (80.0-97.0); Mean Platelet Volume 10.6 FL (9.5-12.2); NRBC Per 100 WBC 0 X 10*3/uL (0.00-0.01); Platelet Count 407 X 10*3/uL (140-440); RBC 4.59 X 10*6/uL (4.10-5.20); RDW 13.4 % (11.5-14.5); WBC 12.02 X 10*3/uL (4.50-10.00)
[2023-04-16 21:50] LABS: BUN/Creat Ratio 16.75 Ratio (12.00-20.00); Blood Urea Nitrogen 13.4 mg/dL (9.0-27.0); Chloride 100 mmol/L (96-109); Glucose 107 mg/dL (70-110); Iron 71 UG/DL (50-170); Potassium 4.7 mmol/L (3.5-5.5); Sodium 138 mmol/L (135-145)
[2023-04-16 21:51] LABS: ALT 20 U/L (8-44); AST 21 U/L (13-35); Albumin 4.5 g/dL (3.8-4.9); Albumin/Globulin Ratio 1.45 Ratio (1.60-3.17); Alkaline Phosphatase 109 U/L (41-126); Carbon Dioxide 22.7 mmol/L (21.6-31.8); Globulin 3.1 g/dL (1.6-3.3); Total Bilirubin 0.2 mg/dL (0.3-1.2); Total Protein 7.6 g/dL (6.2-8.2)
== END | disposition home or self-care (01) ==
LOC: LABWHC1 15:34
PROVIDERS: ATTEND Surgery
DX: E66.01 Morbid (severe) obesity due to excess calories (principal); K90.89 Other intestinal malabsorption; E55.9 Vitamin D deficiency, unspecified; Z68.43 Body mass index [BMI] 50.0-59.9, adult
CPT/HCPCS: 36415; 80053; 82306; 82607; 82746; 83540; 84425; 85027

== ENCOUNTER 2023-05-08 12:44 | Observation (INO) | payer BC ==
[~2023-05-08 12:44] MED LIST changes: +ACETAMINOPHEN TAB 500 MG TAB PO PRN; +DEXAMETHASONE SOD PHOSPHATE 4 MG/ML 1 ML VIAL IV ONE; +ENOXAPARIN 40 MG/0.4 ML SYRINGE SQ PRN; +HYDROmorphone 0.5 MG/0.5 ML SYRINGE IVP PRN; -LACTATED RINGERS 1,000 ML IV SCH; +LIDOCAINE 1% (10MG/ML) FOR IV START INTRADERMA PRN; +MIDAZOLAM 2 MG/2 ML VIAL IV PRN; +ONDANSETRON 4 MG/2 ML VIAL IVP ONE; +ONDANSETRON 4 MG/2 ML VIAL IVP PRN; +ceFAZolin 3 GM in SODIUM CHLORIDE 0.9% 100 ML IVPB PRN; +fentaNYL (PF) 50 MCG/ML 2 ML AMP IV PRN
[2023-05-08 13:19] LABS: Glucose,Whole Blood 89 mg/dL (70-110)
[2023-05-08] MEDS: LACTATED RINGERS 1,000 ML IV SCH ×2 (13:20→18:17)
[2023-05-08] MEDS ORDERED: DEXAMETHASONE SOD PHOSPHATE 4 MG/ML 1 ML VIAL IVP ONE (13:31)
[2023-05-08] MEDS ORDERED: HYDROmorphone (PF) 1 MG/ML ONE (13:51)
[2023-05-08] MEDS ORDERED: LIDOCAINE 1% INJ 10MG/ML (20 ML MDV) ONE (13:51)
[2023-05-08] MEDS ORDERED: PROPOFOL 10 MG/ML 20 ML VIAL IV ONE (13:51)
[2023-05-08] MEDS ORDERED: ROCURONIUM 10 MG/ML (5 ML VIAL) IV ONE (13:51)
[2023-05-08] MEDS ORDERED: PHENYLEPHRINE-0.9% NACL SYG 1,000 MCG/10 ML SYRINGE ONE (13:51)
[2023-05-08] MEDS ORDERED: SUCCINYLCHOLINE CHLORIDE 200 MG/10 ML VIAL IV ONE (13:51)
[2023-05-08] MEDS ORDERED: NEOSTIGMINE 1 MG/ML 10 ML VIAL ONE (13:51)
[2023-05-08] MEDS ORDERED: MIDAZOLAM 2 MG/2 ML VIAL ONE (13:51)
[2023-05-08] MEDS ORDERED: GLYCOPYRROLATE 0.2 MG/ML 2 ML VIAL ONE (13:51)
[2023-05-08] MEDS ORDERED: fentaNYL (PF) 50 MCG/ML 2 ML AMP ONE (13:51)
--- NOTE | 2023-05-08 14:08 | P.GSHP ---
History of Present Illness H&P Date: 05/08/23 Chief Complaint: Morbid obesity 37-year-old female here today for laparoscopic sleeve gastrectomy. Her case unfortunately was canceled yesterday because of an emergency that I had. Patient remains interested in sleeve gastrectomy. Patient with past medical history including bipolar disorder hypersomnia sleep apnea. No history of tobacco use, EBT, or dysphagia. Recent EGD showed gastritis. Past Medical History Past Medical History: Asthma, Diabetes Mellitus, Sleep Apnea/CPAP/BIPAP Additional Past Medical History / Comment(s): pre-diabetic , bipolar, idiopathic hypersomnia, anxiety disorder uses cpap History of Any Multi-Drug Resistant Organisms: None Reported Past Surgical History: No Surgical Hx Reported Additional Past Surgical History / Comment(s): wisdom teeth removal, hymenotomy 2018, 2009 lasic eye surgery both, egd Past Anesthesia/Blood Transfusion Reactions: No Reported Reaction Additional Past Anesthesia/Blood Transfusion Reaction / Comment(s): No blood transfusion Past Psychological History: Anxiety, Bipolar, Depression, Panic Disorder Additional Psychological History / Comment(s): Obstructive sleep apnea idiopathic hyperinsomnia Smoking Status: Never smoker Past Alcohol Use History: Rare Past Drug Use History: None Reported - Past Family History Sister(s) Family Medical History: Cancer Additional Family Medical History / Comment(s): thyroid Father Family Medical History: Cancer Additional Family Medical History / Comment(s): skin Medications and Allergies Home Medications Medication Instructions Recorded Confirmed Type ALPRAZolam [Xanax] 0.25 mg PO QAM PRN 12/17/15 05/04/23 History Dextroamphetamine/Amphetamine 30 mg PO DAILY 11/29/22 05/04/23 History [Adderall Xr 30 mg Capsule] Dextroamphetamine/Amphetamine 20 mg PO DAILY 11/29/22 05/04/23 History [Dextroamp-Amphetamin 20 mg Tab] EPINEPHrine (Auto Inject) [Epipen] 0.3 mg SQ DIRECTED 11/29/22 05/04/23 History Lurasidone HCl [Latuda] 120 mg PO DAILY 11/29/22 05/04/23 History Sertraline [Zoloft] 200 mg PO DAILY 11/29/22 05/04/23 History modafiniL [Provigil] 200 mg PO BID 11/29/22 05/04/23 History metFORMIN HCL 500 mg PO DAILY 12/12/22 05/04/23 History Allergies Allergy/AdvReac Type Severity Reaction Status Date / Time doxycycline Allergy Anaphylaxis Verified 05/04/23 10:49 Surgical - Exam Vital Signs Temp Pulse Resp BP Pulse Ox 97.1 F L 84 20 183/76 96 05/08/23 13:04 05/08/23 13:04 05/08/23 13:04 05/08/23 13:04 05/08/23 13:04 Physical exam: General: Well-developed, well-nourished HEENT: Normocephalic, sclerae nonicteric Abdomen: Nontender, nondistended Extremities: No edema Neuro: Alert and oriented Assessment and Plan (1) Morbid obesity Narrative/Plan: 37-year-old female with morbid obesity. BMI 48. Patient remains interested in sleeve gastrectomy. We'll proceed with laparoscopic da Eda-assisted sleeve gastrectomy, possible open at this time. The risks of bleeding, infection, stenosis, stricture, leak, abscess, fistula formation, peritonitis, poor weight loss, reflux, vomiting, conversion to an open procedure, aborting sleeve gastrectomy, LA, PE, DVT, and were discussed. The patient understands and wishes to proceed. Current Visit: No Status: Acute Code(s): E66.01 - MORBID (SEVERE) OBESITY DUE TO EXCESS CALORIES SNOMED Code(s): 970322411
[2023-05-08] MEDS ORDERED: BUPIVACAINE (PF) 0.25% 30 ML VIAL SQ ONE ×2 (14:28)
[2023-05-08] MEDS ORDERED: LACTATED RINGERS 1,000 ML IV ONE (15:14)
[2023-05-08] MEDS ORDERED: NALOXONE 0.4 MG/ML 1 ML VIAL IV PRN (16:37)
[2023-05-08] MEDS ORDERED: diphenhydrAMINE 50 MG/ML 1 ML VIAL IVP PRN (16:37)
[2023-05-08] MEDS ORDERED: HYDROcodone/APAP 15 ML SOLUTION PO PRN (16:37)
[2023-05-08] MEDS ORDERED: SIMETHICONE 80 MG CHEWABLE PO PRN (16:37)
[2023-05-08] MEDS ORDERED: HYOSCYAMINE ORAL DROPS 1.875 MG/15 ML BOTTLE PO PRN (16:37)
--- NOTE | 2023-05-08 16:46 | P.OP ---
Date of Procedure: 05/08/23 Procedure(s) Performed: PREOPERATIVE DIAGNOSIS: Morbid obesity, sleep apnea POSTOPERATIVE DIAGNOSIS: Same PROCEDURE: Da Eda assisted laparoscopic sleeve gastrectomy SURGEON: Kayode EBL: Minimal ANESTHESIA: General COMPLICATIONS: None OPERATIVE PROCEDURE: Patient was placed in the operating table in the supine position. The patient was then placed under general anesthesia at that time. The abdomen was prepped and draped in the usual sterile fashion. A 5 mm optical trocar was placed in the left upper quadrant 20 cm inferior to the xiphoid process. Insufflation took place up to 15 mmHg. No adhesions were seen. A 5 mm subxiphoid incision was made and the medium Moris retractor was used to elevate the left lobe of liver anteriorly. This was held in place using the fixed arm retractor. An additional 12 mm trocar was placed in the right paramedian location and 2 additional 8 mm trochars were placed in the left upper quadrant one medial and one lateral to the initially placed optical trocar. All of these trochars were placed along the same plane. The initial 5 was then switched to an 8 mm trocar. The robot was then docked appropriately. The 8 mm camera was placed in the left paramedian trocar site down viewing. A fenestrated bipolar was placed in arm 1, arm 3 had the vessel sealer, arm 4 had the small grasper retractor. The hiatus was inspected and there was no visible hiatal hernia. At that point I moved to the distal aspect of the greater curvature the stomach. The short gastric vasculature were divided using the vessel sealer. This dissection took place distally until we were 4 cm from the pylorus. The posterior adhesions were divided as well. The dissection then took place proximally along the stomach until the posterior short gastrics were divided and the fundus of the stomach was fully mobilized. Once the stomach was fully mobilized the blunt tipped 40-Uzbek bougie dilator was advanced into the stomach and advanced all the way to the prepyloric location. The patient's stomach by palpation seemed to be of average thickness. The first firing of the staple was a black load with SLR. Second 2 firings of the stapler were green load with SLR. Fourth firing of the stapler was a blue load with SLR. As the blue load was firing I noticed that the micah were bunching together and the stapling was paused and the stapler was opened. The excess SLR buttress material was excised sharply. Loose micah were evacuated. The stapler was changed to a new stapler. A blue load without SLR was then fired and unfortunately this same process seemed to occur again. The staple was again paused. The staple line as inspected appeared normal however. On each of these 2 firings of the stapler only about 1 cm of the stapler was allowed to fire when it was noted to start bunching together. At that time a green load without buttressing material was utilized without difficulty. The final firing of the stapler was a blue load without staple line reinforcement. The staple line was inspected from proximal to distal and no abnormalities were noted. There were no signs of dehiscence or bleeding. The stomach was then placed in the right upper quadrant after it was fully excised. The oral gastric tube was reinserted. The stomach was insufflated with approximately 100 mL of methylene blue. No evidence of leak or obstruction was seen. Pressure was then dropped to 8 mm for 2-3 minutes. The staple line was inspected and no bleeding was se en. Tisseel fibrin glue was then used along the length of the staple line. The robot was then undocked. The da Eda laparoscope was used and the stomach was removed from the 12 mm trocar site without difficulty. The fascia at the 12mm site was closed using [id number] 0 Vicryl sutures with the laparoscopic suture passer and Rashi Chivo technique. The insufflation was evacuated. The skin at all 5 incisions were closed using 4-0 Monocryl sutures. Skin glue was then applied. DISPOSITION: Stable to recovery room
[2023-05-08 17:09] LABS: Glucose,Whole Blood 158 mg/dL (70-110)
[2023-05-08] MEDS: HYDROmorphone 0.5 MG/0.5 ML SYRINGE IVP PRN (18:19)
[2023-05-08] MEDS ORDERED: ALPRAZolam 0.25 MG TAB PO PRN (18:22)
[2023-05-08] MEDS ORDERED: DEXTROSE 50% SYRINGE 50 ML IVP PRN ×2 (18:23)
[2023-05-08] MEDS: ACETAMINOPHEN IV (For NPO) 1,000 MG in EMPTY BAG 1 BAG IVPB SCH ×2 (18:40→23:07)
[2023-05-08] MEDS: PANTOPRAZOLE 40 MG/10 ML VIAL IV SCH (18:41)
[2023-05-08 19:54] LABS: Glucose,Whole Blood 194 mg/dL (70-110)
[2023-05-08] MEDS: HYDROmorphone 1 MG/ML 1 ML SYRINGE IVP PRN (20:33)
[2023-05-08] MEDS: ONDANSETRON 4 MG/2 ML VIAL IVP PRN (20:34)
[2023-05-08] MEDS: ALBUTEROL NEBULIZED 2.5 MG/3 ML INHALATION SCH (21:00)
[2023-05-08] MEDS: 0.9% NACL WITH KCL 20 MEQ/L 1,000 ML IV SCH (21:20)
[2023-05-08] MEDS: INSULIN ASPART (NovoLOG) 100 UNIT/ML VIAL SQ SCH (21:21)
[2023-05-09] MEDS: HYDROmorphone 1 MG/ML 1 ML SYRINGE IVP PRN (01:22)
[2023-05-09] MEDS: 0.9% NACL WITH KCL 20 MEQ/L 1,000 ML IV SCH ×2 (01:47→10:00)
[2023-05-09 06:05] LABS: Glucose,Whole Blood 115 mg/dL (70-110)
[2023-05-09] MEDS: INSULIN ASPART (NovoLOG) 100 UNIT/ML VIAL SQ SCH ×4 (06:07→21:20)
[2023-05-09] MEDS: ENOXAPARIN 40 MG/0.4 ML SYRINGE SQ SCH ×3 (06:17→21:17)
[2023-05-09] MEDS: ACETAMINOPHEN IV (For NPO) 1,000 MG in EMPTY BAG 1 BAG IVPB SCH ×3 (06:17→17:19)
[2023-05-09] MEDS ORDERED: 0.9% NACL WITH KCL 20 MEQ/L 1,000 ML IV SCH (08:00)
[2023-05-09] MEDS: ALBUTEROL NEBULIZED 2.5 MG/3 ML INHALATION SCH ×4 (08:14→20:40)
[2023-05-09 08:34] LABS: Basophils # (A) 0.02 X 10*3/uL (0.00-0.10); Basophils % (A) 0.1 %; Eosinophils # (A) 0 X 10*3/uL (0.04-0.35); Eosinophils % (A) 0 %; HGB 11.6 g/dL (12.0-15.0); Lymphocytes # (A) 1.84 X 10*3/uL (0.90-5.00); Lymphocytes % (A) 11.6 %; MCH 29.5 pg (27.0-32.0); MCHC 31.4 g/dL (32.0-37.0); MCV 94.1 FL (80.0-97.0); Mean Platelet Volume 11.5 FL (9.5-12.2); Monocytes # (A) 0.99 X 10*3/uL (0.20-1.00); Monocytes % (A) 6.2 %; NRBC Per 100 WBC 0 X 10*3/uL (0.00-0.01); Neutrophils # (A) 12.95 X 10*3/uL (1.80-7.70); Neutrophils % (A) 81.8 %; Platelet Count 409 X 10*3/uL (140-440); RBC 3.93 X 10*6/uL (4.10-5.20); RDW 13.8 % (11.5-14.5); WBC 15.85 X 10*3/uL (4.50-10.00)
[2023-05-09 09:00] LABS: Blood Urea Nitrogen 10.4 mg/dL (9.0-27.0); Calcium 8.6 mg/dL (8.7-10.3); Carbon Dioxide 19.7 mmol/L (21.6-31.8); Chloride 107 mmol/L (96-109); Magnesium 1.8 mg/dL (1.5-2.4); Phosphorus 3.4 mg/dL (2.4-5.1); Sodium 140 mmol/L (135-145)
[2023-05-09] MEDS ORDERED: SERTRALINE 100 MG TAB PO SCH (09:00)
[2023-05-09] MEDS ORDERED: LURASIDONE 60 MG TAB PO SCH (09:00)
[2023-05-09] MEDS: ONDANSETRON 4 MG/2 ML VIAL IVP PRN ×2 (09:40→18:55)
[2023-05-09] MEDS: PANTOPRAZOLE 40 MG/10 ML VIAL IV SCH (09:41)
[2023-05-09] MEDS: LACTATED RINGERS 1,000 ML IV SCH (09:44)
--- NOTE | 2023-05-09 09:53 | FL ---
EXAMINATION TYPE: FL UGI DATE OF EXAM: 05/09/2023 CLINICAL HISTORY: Status post gastric sleeve Contrast: Omnipaque 350 50 mL The patient ingested contrast without difficulty or delay. Noted are postsurgical changes of gastric sleeve. There is no evidence for leak or obstruction. Contrast is noted within the duodenum. IMPRESSION: Post-surgical change of gastric sleeve without evidence for obstruction or leak at this point in time.
[2023-05-09] MEDS ORDERED: MAGNESIUM SULFATE-D5W PMX 1 GM in DEXTROSE/WATER 1 100ML.BAG IVPB ONE (10:07)
[2023-05-09] MEDS ORDERED: SCOPOLAMINE 1 MG/72 HR PATCH TRANSDERM SCH (10:15)
[2023-05-09 10:45] LABS: Glucose,Whole Blood 111 mg/dL (70-110)
[2023-05-09] MEDS: SIMETHICONE 40 MG/0.6 ML DROPS 2,000 MG/30 ML BOTTLE PO SCH ×4 (11:13→21:18)
[2023-05-09] MEDS: KETOROLAC 15 MG/ML 1 ML VIAL IVP SCH ×3 (11:14→21:16)
[2023-05-09 12:27] VITALS: BMI 48.8
--- NOTE | 2023-05-09 13:02 | P.PN ---
Subjective Progress Note Date: 05/09/23 CHIEF COMPLAINT: Morbid obesity HISTORY OF PRESENT ILLNESS: Patient postop day #1 status post laparoscopic sleeve gastrectomy. She is complaining of abdominal pain. She complains of nausea. She did undergo the upper GI and when she came back she had a small brown emesis. She denies any flatus. She reports that she is urinating without difficulty. She does complain of hiccups. Afebrile. She's been mildly tachycardic heart rate 106. WBC is up at 15.85 Hgb 11.6 platelets 409 sodium 140 potassium is 5.0 creatinine 0.7 magnesium 1.8 UGI postsurgical changes of gastric sleeve without evidence of obstruction or leak. PHYSICAL EXAM: VITAL SIGNS: Reviewed. GENERAL: Well-developed in no acute distress. ABDOMEN: Soft. Nondistended. Diffuse tenderness at incision sites. Incisions clean dry and intact NEUROLOGIC: Alert and oriented. Cranial nerves II through XII grossly intact. ASSESSMENT: 1. Morbid obesity and sleep apnea status post laparoscopic cholecystectomy gastrectomy 2. Hypomagnesemia PLAN: -Start sips of bariatric clears -Add Decadron scheduled for nausea and scopolamine patch -Add Toradol scheduled for pain -Change IV fluids to normal saline at 100 mL per hour. Remove potassium from fluids due to a potassium of 5.0 -Give magnesium supplement -Encourage patient to ambulate -Encourage patient to use incentive spirometer -DVT prophylaxis Lovenox and GI prophylaxis Protonix Physician Secondary Social Studies Teacher note has been reviewed by physician. Signing provider agrees with the documented findings, assessment, and plan of care. I have personally seen and examined the patient, reviewed the SOFTBALL UMPIRE /PAs history, exam and MDM and agree with the assessment and plan as written. Based on total visit time, I have performed more than 50% of the visit. Patient having nausea and pain today. Labs noted. Tachycardia earlier. Patient was tachycardic in the office setting as well. Upper GI shows no leak. Add Decadron for Add Decadron for nausea. Reeval tomorrow. Objective - Vital Signs Vital signs: Vital Signs Temp 98.4 F 05/09/23 06:36 Pulse 106 H 05/09/23 08:30 Resp 18 05/09/23 06:36 BP 113/66 05/09/23 06:36 Pulse Ox 96 05/09/23 08:19 FiO2 Intake & Output 05/08/23 05/09/23 05/09/23 18:59 06:59 18:59 Intake Total 1500 Output Total 10 Balance 1490 Weight 129 kg Intake: IV 1500 Output: Estimated Blood Loss 10 Other: # Voids 1 1 - Labs CBC & Chem 7: 05/09/23 05:25 05/09/23 05:25 Labs: Abnormal Lab Results - Last 24 Hours (Table) 05/08/23 05/08/23 05/09/23 Range/Units 17:08 19:53 05:25 WBC (4.50-10.00) X 10*3/uL RBC (4.10-5.20) X 10*6/uL Hgb (12.0-15.0) g/dL Hct (37.2-46.3) % MCHC (32.0-37.0) g/dL Immature Gran # (0.00-0.04) X 10*3/uL Neutrophils # (1.80-7.70) X 10*3/uL Eosinophils # (0.04-0.35) X 10*3/uL Carbon Dioxide (21.6-31.8) mmol/L Anion Gap (4.00-12.00) mmol/L POC Glucose (mg/dL) 158 H 194 H (70-110) mg/dL Hemoglobin A1c 6.6 H (<=6.0) % Calcium (8.7-10.3) mg/dL 05/09/23 05/09/23 05/09/23 Range/Units 05:25 05:25 06:03 WBC 15.85 H (4.50-10.00) X 10*3/uL RBC 3.93 L (4.10-5.20) X 10*6/uL Hgb 11.6 L (12.0-15.0) g/dL Hct 37.0 L (37.2-46.3) % MCHC 31.4 L (32.0-37.0) g/dL Immature Gran # 0.05 H (0.00-0.04) X 10*3/uL Neutrophils # 12.95 H (1.80-7.70) X 10*3/uL Eosinophils # 0 L (0.04-0.35) X 10*3/uL Carbon Dioxide 19.7 L (21.6-31.8) mmol/L Anion Gap 13.30 H (4.00-12.00) mmol/L POC Glucose (mg/dL) 115 H (70-110) mg/dL Hemoglobin A1c (<=6.0) % Calcium 8.6 L (8.7-10.3) mg/dL
[2023-05-09] MEDS: DEXAMETHASONE SOD PHOSPHATE 4 MG/ML 1 ML VIAL IVP SCH ×2 (14:30→17:18)
[2023-05-09] MEDS: SODIUM CHLORIDE 0.9% 1,000 ML IV SCH (14:31)
[2023-05-09 17:07] LABS: Glucose,Whole Blood 115 mg/dL (70-110)
[2023-05-09] MEDS: HYDROmorphone 0.5 MG/0.5 ML SYRINGE IVP PRN (18:54)
[2023-05-09 19:11] LABS: Glucose,Whole Blood 163 mg/dL (70-110)
[2023-05-09] MEDS: SERTRALINE 100 MG TAB PO SCH (21:27)
[2023-05-09] MEDS: LURASIDONE 60 MG TAB PO SCH (21:27)
[2023-05-10] MEDS: SODIUM CHLORIDE 0.9% 1,000 ML IV SCH ×3 (00:13→21:29)
[2023-05-10] MEDS: ACETAMINOPHEN IV (For NPO) 1,000 MG in EMPTY BAG 1 BAG IVPB SCH ×5 (00:13→23:00)
[2023-05-10] MEDS: DEXAMETHASONE SOD PHOSPHATE 4 MG/ML 1 ML VIAL IVP SCH ×5 (00:17→23:01)
--- NOTE | 2023-05-10 01:04 | P.CONS ---
History of Present Illness - Reason for Consult Consult date: 05/09/23 Medical management - Chief Complaint Status post sleeve gastrectomy - History of Present Illness Patient is a 39-year-old female with a known history of asthma, diabetes type 2 [id number], obstructive sleep apnea on CPAP, anxiety/depression bipolar disorder and panic disorder was admitted to hospital for elective sleeve gastrectomy. Patient is s/p procedure on 05/08/2023. Patient is currently resting in the bed. Denies any chest pain or shortness of breath. Patient does have some nausea. Abdominal pain is controlled with medications. No headache or dizziness or lightheadedness. Patient has been afebrile. Laboratory data showed WBC 15.8 hemoglobin 11.6 and platelets 409 bicarb is 19.7 BUN 10.4 and creatinine 0.7 and A1c 6.6 and calcium 8.6. Magnesium 1.8. Review of Systems Constitutional: Patient denies any fever or chills . no Generalized weakness. Abdomen: Patient is complaining of nausea and abd. pain no episodes of vomiting. No diarrhea. Cardiovascular: Patient denies any chest pain or short of breath no palpitations. Respiratory: patient denied any cough . no sputum production. No shortness of breath Neurologic: Patient denied any numbness or tingling or headache. Musculoskeletal: Patient denies any complaints of joint swelling or deformity. Skin: Negative Psychiatric: Negative Endocrine: No heat or cold intolerance. No recent weight gain. Genitourinary: No dysuria or hematuria. All other 14 point ROS negative except the above Past Medical History Past Medical History: Asthma, Diabetes Mellitus, Sleep Apnea/CPAP/BIPAP Additional Past Medical History / Comment(s): pre-diabetic , bipolar, idiopathic hypersomnia, anxiety disorder uses cpap History of Any Multi-Drug Resistant Organisms: None Reported Past Surgical History: No Surgical Hx Reported Additional Past Surgical History / Comment(s): wisdom teeth removal, hymenotomy 2019, 2009 lasic eye surgery both, egd Past Anesthesia/Blood Transfusion Reactions: No Reported Reaction Additional Past Anesthesia/Blood Transfusion Reaction / Comm: No blood transfusion Past Psychological History: Anxiety, Bipolar, Depression, Panic Disorder Additional Psychological History / Comment(s): Obstructive sleep apnea idiopathic hyperinsomnia Smoking Status: Never smoker Past Alcohol Use History: Rare Past Drug Use History: None Reported - Past Family History Sister(s) Family Medical History: Cancer Additional Family Medical History / Comment(s): thyroid Father Family Medical History: Cancer Additional Family Medical History / Comment(s): skin Medications and Allergies Home Medications Medication Instructions Recorded Confirmed Type ALPRAZolam [Xanax] 0.25 mg PO QAM PRN 12/17/15 05/04/23 History Dextroamphetamine/Amphetamine 30 mg PO DAILY 11/29/22 05/04/23 History [Adderall Xr 30 mg Capsule] Dextroamphetamine/Amphetamine 20 mg PO DAILY 11/29/22 05/04/23 History [Dextroamp-Amphetamin 20 mg Tab] EPINEPHrine (Auto Inject) [Epipen] 0.3 mg SQ DIRECTED 11/29/22 05/04/23 History Lurasidone HCl [Latuda] 120 mg PO DAILY 11/29/22 05/04/23 History Sertraline [Zoloft] 200 mg PO DAILY 11/29/22 05/04/23 History modafiniL [Provigil] 200 mg PO BID 11/29/22 05/04/23 History metFORMIN HCL 500 mg PO DAILY 12/12/22 05/04/23 History Allergies Allergy/AdvReac Type Severity Reaction Status Date / Time doxycycline Allergy Anaphylaxis Verified 05/04/23 10:49 Physical Exam Vitals: Vital Signs Temp Pulse Pulse Pulse Resp BP BP 05/09/23 13:16 80 05/09/23 13:04 77 05/09/23 08:30 106 H 05/09/23 08:19 05/09/23 08:15 109 H 05/09/23 06:36 98.4 F 66 18 113/66 05/09/23 00:09 98.2 F 91 19 122/72 05/08/23 20:00 19 05/08/23 19:52 97.7 F 64 18 132/81 05/08/23 19:31 55 L 123/76 05/08/23 19:16 65 132/75 05/08/23 19:01 64 133/78 05/08/23 18:46 55 L 133/79 05/08/23 18:31 69 136/84 05/08/23 18:15 49 L 130/85 05/08/23 17:45 97.7 F 50 L 19 137/83 05/08/23 17:27 52 L 16 139/77 05/08/23 17:12 65 16 138/77 05/08/23 16:57 65 16 140/79 05/08/23 16:42 97.0 F L 84 18 134/73 05/08/23 13:51 81 18 05/08/23 13:37 58 L 20 112/64 05/08/23 13:28 64 20 103/57 05/08/23 13:26 55 L 05/08/23 13:24 44 L 20 Pulse Ox 05/09/23 13:16 05/09/23 13:04 05/09/23 08:30 05/09/23 08:19 96 05/09/23 08:15 05/09/23 06:36 95 05/09/23 00:09 96 05/08/23 20:00 05/08/23 19:52 05/08/23 19:31 93 L 05/08/23 19:16 97 05/08/23 19:01 94 L 05/08/23 18:46 95 05/08/23 18:31 96 05/08/23 18:15 05/08/23 17:45 100 05/08/23 17:27 96 05/08/23 17:12 93 L 05/08/23 16:57 94 L 05/08/23 16:42 100 05/08/23 13:51 100 05/08/23 13:37 100 05/08/23 13:28 97 05/08/23 13:26 05/08/23 13:24 95 Intake and Output 05/08/23 05/09/23 05/09/23 22:59 06:59 14:59 Intake Total 400 Output Total 10 Balance 390 Intake: IV 400 Output: Estimated Blood Loss 10 Other: # Voids 1 1 Weight 129 kg 129 kg PHYSICAL EXAMINATION: Patient is lying in the bed comfortably, no acute distress, awake alert and oriented. Morbidly obese.. HEENT: Normocephalic. Neck is supple. Pupils reactive. Nostrils clear. Oral cavity is moist. Neck reveals no JVD, carotid bruits, or thyromegaly. CHEST EXAMINATION: Trachea is central. Symmetrical expansion. Lung thompson clear to auscultation and percussion. Bibasilar diminished sounds. Nonlabored breathing. CARDIAC: Normal S1, S2 with no gallops. No murmurs ABDOMEN: Soft. Bowel sounds present. Nontender. No organomegaly. No abdominal bruits. Extremities: reveal no edema. No clubbing or cyanosis Neurologically awake, alert, oriented x3 with well-coordinated movements. No focal deficits noted Skin: No rash or skin lesions. Psychiatric: Coperative. Nonsuicidal, Musculoskeletal: No joint swelling or deformity. Normal range of motion. Results CBC & Chem 7: 05/09/23 05:25 05/09/23 05:25 Labs: Abnormal Lab Results - Last 24 Hours (Table) 05/08/23 05/08/23 05/09/23 Range/Units 17:08 19:53 05:25 WBC (4.50-10.00) X 10*3/uL RBC (4.10-5.20) X 10*6/uL Hgb (12.0-15.0) g/dL Hct (37.2-46.3) % MCHC (32.0-37.0) g/dL Immature Gran # (0.00-0.04) X 10*3/uL Neutrophils # (1.80-7.70) X 10*3/uL Eosinophils # (0.04-0.35) X 10*3/uL Carbon Dioxide (21.6-31.8) mmol/L Anion Gap (4.00-12.00) mmol/L POC Glucose (mg/dL) 158 H 194 H (70-110) mg/dL Hemoglobin A1c 6.6 H (<=6.0) % Calcium (8.7-10.3) mg/dL 05/09/23 05/09/23 05/09/23 Range/Units 05:25 05:25 06:03 WBC 15.85 H (4.50-10.00) X 10*3/uL RBC 3.93 L (4.10-5.20) X 10*6/uL Hgb 11.6 L (12.0-15.0) g/dL Hct 37.0 L (37.2-46.3) % MCHC 31.4 L (32.0-37.0) g/dL Immature Gran # 0.05 H (0.00-0.04) X 10*3/uL Neutrophils # 12.95 H (1.80-7.70) X 10*3/uL Eosinophils # 0 L (0.04-0.35) X 10*3/uL Carbon Dioxide 19.7 L (21.6-31.8) mmol/L Anion Gap 13.30 H (4.00-12.00) mmol/L POC Glucose (mg/dL) 115 H (70-110) mg/dL Hemoglobin A1c (<=6.0) % Calcium 8.6 L (8.7-10.3) mg/dL 05/09/23 Range/Units 10:44 WBC (4.50-10.00) X 10*3/uL RBC (4.10-5.20) X 10*6/uL Hgb (12.0-15.0) g/dL Hct (37.2-46.3) % MCHC (32.0-37.0) g/dL Immature Gran # (0.00-0.04) X 10*3/uL Neutrophils # (1.80-7.70) X 10*3/uL Eosinophils # (0.04-0.35) X 10*3/uL Carbon Dioxide (21.6-31.8) mmol/L Anion Gap (4.00-12.00) mmol/L POC Glucose (mg/dL) 111 H (70-110) mg/dL Hemoglobin A1c (<=6.0) % Calcium (8.7-10.3) mg/dL Assessment and Plan Assessment: Status post laparoscopic sleeve gastrectomy. Postoperative day 1 Leukocytosis likely postoperative inflammatory reaction. Unlikely infection Morbid obesity BMI 48.8 Obstructive sleep apnea on CPAP at home Hypomagnesemia replaced Diabetes type 2 [id number]-[id number], a1 6.6 Asthmatic exacerbation Anxiety/depression bipolar disorder DVT prophylaxis Plan: Patient will be continued on pain management, bariatric clears liquids as per general surgery recommendations. Continue on IV hydration. Current insulin sliding scale and encourage incentive spirometry. Continue GI and DVT prophylaxis. Monitor CBC and BMP tomorrow. Continue with current management and further recommendations based on clinical course. Thank you kindly for the consult.
[2023-05-10] MEDS: KETOROLAC 15 MG/ML 1 ML VIAL IVP SCH ×4 (03:44→21:31)
[2023-05-10 05:29] LABS: Glucose,Whole Blood 152 mg/dL (70-110)
[2023-05-10] MEDS: INSULIN ASPART (NovoLOG) 100 UNIT/ML VIAL SQ SCH ×4 (06:00→21:28)
[2023-05-10 07:27] VITALS: RESP 18
[2023-05-10] MEDS ORDERED: bisacodyL 5 MG TABLET.DR PO PRN (08:00)
[2023-05-10] MEDS: LACTATED RINGERS 1,000 ML IV SCH (08:36)
[2023-05-10] MEDS: PANTOPRAZOLE 40 MG/10 ML VIAL IV SCH (08:41)
[2023-05-10] MEDS: ENOXAPARIN 40 MG/0.4 ML SYRINGE SQ SCH ×2 (08:42→21:36)
[2023-05-10] MEDS: SIMETHICONE 40 MG/0.6 ML DROPS 2,000 MG/30 ML BOTTLE PO SCH ×4 (08:43→21:39)
[2023-05-10] MEDS: ALBUTEROL NEBULIZED 2.5 MG/3 ML INHALATION SCH ×4 (08:54→20:11)
[2023-05-10 11:25] LABS: Glucose,Whole Blood 172 mg/dL (70-110)
[2023-05-10 11:28] LABS: BUN/Creat Ratio 14.67 Ratio (12.00-20.00); Blood Urea Nitrogen 8.8 mg/dL (9.0-27.0); Calcium 8.6 mg/dL (8.7-10.3); Carbon Dioxide 20.8 mmol/L (21.6-31.8); Chloride 106 mmol/L (96-109); Glucose 140 mg/dL (70-110); Potassium 4.9 mmol/L (3.5-5.5); Sodium 138 mmol/L (135-145)
--- NOTE | 2023-05-10 12:29 | P.PN ---
Subjective Progress Note Date: 05/10/23 CHIEF COMPLAINT: Morbid obesity HISTORY OF PRESENT ILLNESS: Patient postop day #2 status post laparoscopic sleeve gastrectomy. Patient reports she is starting to feel better today. Nausea is decreased. She had a total of 3 episodes of vomiting yesterday. Pain is less today. She rates it about a 6 out of 10. Denies any flatus. She has been up and ambulating. She does complain of hiccups. Her tachycardia has improved. Afebrile. CBC for today pending sodium 13 potassium is 4.9 creatinine 0.6 magnesium 2.0 PHYSICAL EXAM: VITAL SIGNS: Reviewed. GENERAL: Well-developed in no acute distress. ABDOMEN: Soft. Nondistended. Diffuse tenderness at incision sites. Incisions clean dry and intact NEUROLOGIC: Alert and oriented. Cranial nerves II through XII grossly intact. ASSESSMENT: 1. Morbid obesity and sleep apnea status post laparoscopic cholecystectomy gastrectomy 2. Hypomagnesemia improved PLAN: -Continue bariatric clear liquids -Continue antiemetics -Continue Decadron -Continue pain management -Continue IV fluids -Encourage patient to ambulate -Encourage patient to use incentive spirometer -DVT prophylaxis Lovenox and GI prophylaxis Protonix Physician Jd Edwards Developer note has been reviewed by physician. Signing provider agrees with the documented findings, assessment, and plan of care. I have personally seen and examined the patient, reviewed the DIRECTOR OF RESTAURANT OPERATIONS /PAs history, exam and MDM and agree with the assessment and plan as written. Based on total visit time, I have performed more than 50% of the visit. As above: Patient doing better today. Minimal pain currently. She was hoping to go home today. She has not been drinking a large volume of liquid. Her vitals are improved. After discussing with patient and her mother we have decided to observe for one more night. Continue IV hydration. Probable discharge tomorrow morning. Objective - Vital Signs Vital signs: Vital Signs Temp 98.0 F 05/10/23 07:03 Pulse 88 05/10/23 09:14 Resp 18 05/10/23 07:03 BP 115/71 05/10/23 07:03 Pulse Ox 96 05/10/23 08:55 FiO2 Intake & Output 05/09/23 05/10/23 05/10/23 18:59 06:59 18:59 Weight 129 kg Other: Voiding Method Toilet # Voids 4 2 - Labs CBC & Chem 7: 05/09/23 05:25 05/10/23 06:59 Labs: Abnormal Lab Results - Last 24 Hours (Table) 05/09/23 05/09/23 05/10/23 Range/Units 17:05 19:09 05:27 Carbon Dioxide (21.6-31.8) mmol/L BUN (9.0-27.0) mg/dL Glucose (70-110) mg/dL POC Glucose (mg/dL) 115 H 163 H 152 H (70-110) mg/dL Calcium (8.7-10.3) mg/dL 05/10/23 05/10/23 Range/Units 06:59 11:24 Carbon Dioxide 20.8 L (21.6-31.8) mmol/L BUN 8.8 L (9.0-27.0) mg/dL Glucose 140 H (70-110) mg/dL POC Glucose (mg/dL) 172 H (70-110) mg/dL Calcium 8.6 L (8.7-10.3) mg/dL
--- NOTE | 2023-05-10 14:56 | P.PN ---
Subjective Progress Note Date: 05/10/23 - Reason for Consult Consult date: 05/09/23 Medical management - Chief Complaint Status post sleeve gastrectomy - History of Present Illness Patient is a 39-year-old female with a known history of asthma, diabetes type 2 [id number], obstructive sleep apnea on CPAP, anxiety/depression bipolar disorder and panic disorder was admitted to hospital for elective sleeve gastrectomy. Patient is s/p procedure on 05/08/2023. Patient is currently resting in the bed. Denies any chest pain or shortness of breath. Patient does have some nausea. Abdominal pain is controlled with medications. No headache or dizziness or lightheadedness. Patient has been afebrile. Laboratory data showed WBC 15.8 hemoglobin 11.6 and platelets 409 bicarb is 19.7 BUN 10.4 and creatinine 0.7 and A1c 6.6 and calcium 8.6. Magnesium 1.8. 05/10/2023 Patient Is seen in follow-up this morning continued on bariatric clears per surgery status post sleeve gastrectomy having some pain and not really taking in much oral intake. Patient has been encouraged to increase activity as tolerated and continue pain management per surgery. Continue gentle IV hydration and a.m. labs pending for this morning. Patient did have a white count yesterday and will follow-up on repeat labs in the a.m., likely reactive. Blood sugars con trolled on current regimen and recommend continue monitoring Accu-Cheks before meals and at bedtime and will continue sliding scale. Magnesium is 2.0. Patient with incentive spirometer at bedside encouraged to continue using at least 10 times every hour while awake. Review of systems: Constitutional: No reports of fatigue, fever, or chills Cardiovascular: No reports of chest pain or palpitations Respiratory: No reports of shortness of breath or cough GI: reports of occasional nausea, no vomiting, or diarrhea, reports not much of an appetite, no bowel movement as of yet : No reports of dysuria or retention Neurovascular: No reports of weakness or numbness All medications have been reviewed PHYSICAL EXAMINATION: Patient is sitting up in the chair, no acute distress, awake alert and oriented. Morbidly obese.. HEENT: Normocephalic. Neck is supple. Pupils reactive. Nostrils clear. Oral cavity is moist. Neck reveals no JVD, carotid bruits, or thyromegaly. CHEST EXAMINATION: Trachea is central. Symmetrical expansion. Lung thompson clear to auscultation and percussion. Bibasilar diminished sounds. Nonlabored breathing. CARDIAC: Normal S1, S2 with no gallops. No murmurs ABDOMEN: Soft. Bowel sounds present. Mildly tender. No organomegaly. No abdominal bruits. Extremities: reveal no edema. No clubbing or cyanosis Neurologically awake, alert, oriented x3 with well-coordinated movements. No focal deficits noted Skin: No rash or skin lesions. Psychiatric: Cooperative. Non-suicidal, Musculoskeletal: No joint swelling or deformity. Normal range of motion. Assessment: Status post laparoscopic sleeve gastrectomy. Postoperative day 2 Leukocytosis likely postoperative inflammatory reaction. Unlikely infection Morbid obesity BMI 48.8 Obstructive sleep apnea on CPAP at home Hypomagnesemia replaced, improved at 2.0 Diabetes type 2 ptf-nizjfzz-olewthmgw, a1 6.6 Asthmatic exacerbation Anxiety/depression bipolar disorder DVT prophylaxis GI prophylaxis Full code Plan: Patient will be continued on pain management, bariatric clears liquids as per general surgery recommendations. Continue on IV hydration. Patient encourage small frequent sips per surgery recommendations as she has not been taking in much oral liquids Continue monitoring Accu-Cheks before meals and at bedtime and will continue Current insulin sliding scale Encouraged incentive spirometer use at least 10 times every hour while awake Encouraged increased activity as tolerated and frequent walks Continue GI and DVT prophylaxis. Per surgery recommendations being monitored overnight with possible discharge planning in 24 hours Thank you kindly for this consultation. We will continue to follow with general surgery during hospitalization The impression and plan of care has been dictated by Armida Fowler, Nurse Practitioner as directed. MD Enrique I have performed a history and examination and MDM of this patient, discussed the same with the dictator, and agree with the dictator's assessment and plan as written ,documented as a scribe. Based on total visit time, I have performed more than 50% of the visit. Objective - Vital Signs Vital signs: Vital Signs Temp 98.3 F 05/10/23 13:43 Pulse 55 L 05/10/23 13:43 Resp 18 05/10/23 13:43 BP 103/69 05/10/23 13:43 Pulse Ox 95 05/10/23 13:43 FiO2 Intake & Output 12/20/23 12/21/23 12/21/23 18:59 06:59 18:59 Weight 129 kg Other: Voiding Method Toilet # Voids 4 2 - Labs CBC & Chem 7: 05/09/23 05:25 05/10/23 06:59 Labs: Abnormal Lab Results - Last 24 Hours (Table) 05/09/23 05/09/23 05/10/23 Range/Units 17:05 19:09 05:27 Carbon Dioxide (21.6-31.8) mmol/L BUN (9.0-27.0) mg/dL Glucose (70-110) mg/dL POC Glucose (mg/dL) 115 H 163 H 152 H (70-110) mg/dL Calcium (8.7-10.3) mg/dL 05/10/23 05/10/23 Range/Units 06:59 11:24 Carbon Dioxide 20.8 L (21.6-31.8) mmol/L BUN 8.8 L (9.0-27.0) mg/dL Glucose 140 H (70-110) mg/dL POC Glucose (mg/dL) 172 H (70-110) mg/dL Calcium 8.6 L (8.7-10.3) mg/dL
[2023-05-10 15:01] LABS: Basophils # (A) 0.01 X 10*3/uL (0.00-0.10); Basophils % (A) 0.1 %; Eosinophils # (A) 0 X 10*3/uL (0.04-0.35); Eosinophils % (A) 0 %; HCT 34.2 % (37.2-46.3); HGB 10.6 g/dL (12.0-15.0); Lymphocytes # (A) 1.09 X 10*3/uL (0.90-5.00); Lymphocytes % (A) 11.7 %; MCH 29.1 pg (27.0-32.0); Mean Platelet Volume 11.7 FL (9.5-12.2); Monocytes # (A) 0.27 X 10*3/uL (0.20-1.00); Monocytes % (A) 2.9 %; NRBC Per 100 WBC 0 X 10*3/uL (0.00-0.01); Neutrophils # (A) 7.93 X 10*3/uL (1.80-7.70); Platelet Count 314 X 10*3/uL (140-440); RBC 3.64 X 10*6/uL (4.10-5.20); WBC 9.33 X 10*3/uL (4.50-10.00)
[2023-05-10 16:38] LABS: Glucose,Whole Blood 148 mg/dL (70-110)
[2023-05-10 20:13] LABS: Glucose,Whole Blood 164 mg/dL (70-110)
[2023-05-10] MEDS: LURASIDONE 60 MG TAB PO SCH (21:35)
[2023-05-10] MEDS: SERTRALINE 100 MG TAB PO SCH (21:36)
[2023-05-11] MEDS: ACETAMINOPHEN IV (For NPO) 1,000 MG in EMPTY BAG 1 BAG IVPB SCH ×2 (05:11→12:15)
[2023-05-11] MEDS: KETOROLAC 15 MG/ML 1 ML VIAL IVP SCH ×2 (05:13→08:13)
[2023-05-11] MEDS: DEXAMETHASONE SOD PHOSPHATE 4 MG/ML 1 ML VIAL IVP SCH ×2 (05:13→12:15)
[2023-05-11] MEDS: SODIUM CHLORIDE 0.9% 1,000 ML IV SCH (05:15)
[2023-05-11 06:11] LABS: Glucose,Whole Blood 151 mg/dL (70-110)
[2023-05-11] MEDS: INSULIN ASPART (NovoLOG) 100 UNIT/ML VIAL SQ SCH ×2 (06:31→11:41)
[2023-05-11 07:32] VITALS: BP 123/82; TEMP 98.1
[2023-05-11] MEDS: ENOXAPARIN 40 MG/0.4 ML SYRINGE SQ SCH (08:12)
[2023-05-11] MEDS: SIMETHICONE 40 MG/0.6 ML DROPS 2,000 MG/30 ML BOTTLE PO SCH ×2 (08:13→12:16)
[2023-05-11] MEDS: PANTOPRAZOLE 40 MG/10 ML VIAL IV SCH (08:13)
[2023-05-11] MEDS: ALBUTEROL NEBULIZED 2.5 MG/3 ML INHALATION SCH ×2 (09:05→12:38)
[2023-05-11 09:15] VITALS: PULSE 62
[2023-05-11] MEDS: LACTATED RINGERS 1,000 ML IV SCH (10:03)
--- NOTE | 2023-05-11 12:36 | P.DS ---
Providers Date of admission: 05/09/23 12:27 Expected date of discharge: 05/11/23 Attending physician: Abdirahman Headley Consults: 05/08/23 16:37 Consult Physician Routine Consulting Provider: Rolf Hilton Consult Reason/Comments: Medical management Do you want consulting provider notified?: Yes Primary care physician: [facility] Course: Discharge diagnosis 1. Morbid obesity and sleep apnea status post laparoscopic sleeve gastrectomy Hospital course This is a 37-year-old female with history of morbid obesity and sleep apnea. She is status post laparoscopic sleeve gastrectomy. Patient's upper GI showed no evidence of leak or obstruction. Her pain is controlled. She is tolerating liquids. She is afebrile. She is ambulating. She is having flatus. He denies any difficulty urinating. She is stable for discharge. Please refer to chart for any further details. Physician Beverage Manager note has been reviewed by physician. Signing provider agrees with the documented findings, assessment, and plan of care. I have personally seen and examined the patient, reviewed the CORRECTION WORKER /PAs history, exam and MDM and agree with the assessment and plan as written. Based on total visit time, I have performed more than 50% of the visit. As above: Patient doing well today. Heart rate was a bit low and medicine has seen her. Sinus bradycardia. There are okay with discharge. She is tolerating liquids. Minimal pain. We'll discharge home. Follow-up one week. Patient Condition at Discharge: Stable Plan - Discharge Summary Discharge Rx Participant: Yes New Discharge Prescriptions: New Simethicone 40 mg/0.6 ml Drops [Mylicon Drops] 40 mg PO PCHS PRN #30 ml PRN Reason: Gas Omeprazole [PriLOSEC] 40 mg PO DAILY #90 cap Acetaminophen Tab [Tylenol] 1,000 mg PO Q6HR PRN #30 tablet PRN Reason: Pain Ondansetron Odt [Zofran Odt] 4 mg PO Q8HR PRN #9 tab PRN Reason: Nausea bisacodyL [Dulcolax] 5 mg PO DAILY PRN #10 tab PRN Reason: Constipation Continue ALPRAZolam [Xanax] 0.25 mg PO QAM PRN PRN Reason: Anxiety Dextroamphetamine/Amphetamine [Adderall Xr 30 mg Capsule] 30 mg PO DAILY Dextroamphetamine/Amphetamine [Dextroamp-Amphetamin 20 mg Tab] 20 mg PO DAILY modafiniL [Provigil] 200 mg PO BID metFORMIN HCL 500 mg PO DAILY Sertraline [Zoloft] 200 mg PO DAILY Lurasidone HCl [Latuda] 120 mg PO DAILY EPINEPHrine (Auto Inject) [Epipen] 0.3 mg SQ DIRECTED Discharge Medication List ALPRAZolam [Xanax] 0.25 mg PO QAM PRN 12/17/15 [History] Dextroamphetamine/Amphetamine [Adderall Xr 30 mg Capsule] 30 mg PO DAILY 11/29/22 [History] Dextroamphetamine/Amphetamine [Dextroamp-Amphetamin 20 mg Tab] 20 mg PO DAILY 11/29/22 [History] EPINEPHrine (Auto Inject) [Epipen] 0.3 mg SQ DIRECTED 11/29/22 [History] Lurasidone HCl [Latuda] 120 mg PO DAILY 11/29/22 [History] Sertraline [Zoloft] 200 mg PO DAILY 11/29/22 [History] modafiniL [Provigil] 200 mg PO BID 11/29/22 [History] metFORMIN HCL 500 mg PO DAILY 12/12/22 [History] Acetaminophen Tab [Tylenol] 1,000 mg PO Q6HR PRN #30 tablet 05/11/23 [Rx] Omeprazole [PriLOSEC] 40 mg PO DAILY #90 cap 05/11/23 [Rx] Ondansetron Odt [Zofran Odt] 4 mg PO Q8HR PRN #9 tab 05/11/23 [Rx] Simethicone 40 mg/0.6 ml Drops [Mylicon Drops] 40 mg PO PCHS PRN #30 ml 05/11/23 [Rx] bisacodyL [Dulcolax] 5 mg PO DAILY PRN #10 tab 05/11/23 [Rx] Follow up Appointment(s)/Referral(s): Julius Santillan DO [Primary Care Provider] - 1 Week [place], [place] [NON-STAFF] - 1 Week (office will call with appointment time) Patient Instructions/Handouts: Nutrition after Bariatric Surgery (DC), Laparoscopic Sleeve Gastrectomy (DC) Activity/Diet/Wound Care/Special Instructions: No lifting over 10 pounds You may shower. No soaking or tub baths for 2 weeks Very light activity until you are reevaluated at your follow up appointment with your surgeon No straws or carbonated beverages Discharge Disposition: HOME SELF-CARE
--- NOTE | 2023-05-11 12:55 | P.PN ---
Subjective Progress Note Date: 05/11/23 - Reason for Consult Consult date: 05/09/23 Medical management - Chief Complaint Status post sleeve gastrectomy - History of Present Illness Patient is a 39-year-old female with a known history of asthma, diabetes type 2 [id number]-[id number], obstructive sleep apnea on CPAP, anxiety/depression bipolar disorder and panic disorder was admitted to hospital for elective sleeve gastrectomy. Patient is s/p procedure on 05/08/2023. Patient is currently resting in the bed. Denies any chest pain or shortness of breath. Patient does have some nausea. Abdominal pain is controlled with medications. No headache or dizziness or lightheadedness. Patient has been afebrile. Laboratory data showed WBC 15.8 hemoglobin 11.6 and platelets 409 bicarb is 19.7 BUN 10.4 and creatinine 0.7 and A1c 6.6 and calcium 8.6. Magnesium 1.8. 05/10/2023 Patient Is seen in follow-up this morning continued on bariatric clears per surgery status post sleeve gastrectomy having some pain and not really taking in much oral intake. Patient has been encouraged to increase activity as tolerated and continue pain management per surgery. Continue gentle IV hydration and a.m. labs pending for this morning. Patient did have a white count yesterday and will follow-up on repeat labs in the a.m., likely reactive. Blood sugars con trolled on current regimen and recommend continue monitoring Accu-Cheks before meals and at bedtime and will continue sliding scale. Magnesium is 2.0. Patient with incentive spirometer at bedside encouraged to continue using at least 10 times every hour while awake. 05/11/2023 Patient is seen and evaluated in follow-up today reports to feeling improved. Patient tolerating more liquid oral intake and doing well with no reports of nausea or vomiting. Patient has been up and walking frequently and denies any dizziness or lightheadedness. Heart rates into the 40s and 50s and will obtain EKG otherwise patient is stable. Patient continues on clear liquid diet per surgery recommendations. No reports of chest pain or palpitations. Patient is afebrile. Review of systems: Constitutional: No reports of fatigue, fever, or chills Cardiovascular: No reports of chest pain or palpitations Respiratory: No reports of shortness of breath or cough GI: No reports of nausea, no vomiting, or diarrhea, reports not much of an appetite, no bowel movement as of yet, patient reports tolerating more oral liquids today : No reports of dysuria or retention Neurovascular: No reports of weakness or numbness, patient denies any dizziness or lightheadedness and has been ambulating multiple times today All medications have been reviewed PHYSICAL EXAMINATION: Patient is sitting up in the chair, no acute distress, awake alert and oriented. Morbidly obese.. HEENT: Normocephalic. Neck is supple. Pupils reactive. Nostrils clear. Oral cavity is moist. Neck reveals no JVD, carotid bruits, or thyromegaly. CHEST EXAMINATION: Trachea is central. Symmetrical expansion. Lung thompson clear to auscultation and percussion. Bibasilar diminished sounds. Nonlabored breathing. CARDIAC: Normal S1, S2 with no gallops. No murmurs sinus rhythm, bradycardia ABDOMEN: Soft. Bowel sounds present. Mildly tender. No organomegaly. No abdominal bruits. Extremities: reveal no edema. No clubbing or cyanosis Neurologically awake, alert, oriented x3 with well-coordinated movements. No focal deficits noted Skin: No rash or skin lesions. Psychiatric: Cooperative. Non-suicidal Musculoskeletal: No joint swelling or deformity. Normal range of motion. Assessment: Status post laparoscopic sleeve gastrectomy. Postoperative day 3 Leukocytosis likely postoperative inflammatory reaction. Unlikely infection, normalized and 9.3 Morbid obesity BMI 48.8 Obstructive sleep apnea on CPAP at home Hypomagnesemia replaced, improved at 2.0 Diabetes type 2 ndx-kryzlkw-girwspsts, a1 6.6 Asthmatic exacerbation Sinus bradycardia Anxiety/depression bipolar disorder DVT prophylaxis GI prophylaxis Full code Plan: Patient will be continued on pain management, bariatric clears liquids as per general surgery recommendations. Continue on IV hydration. Patient encouraged small frequent sips per surgery recommendations and she reports is tolerating more liquids today anticipating going home Continue monitoring Accu-Cheks before meals and at bedtime and will continue Current insulin sliding scale Encouraged incentive spirometer use at least 10 times every hour while awake Encouraged increased activity as tolerated and frequent walks. Patient reports she has been walking frequently since yesterday and doing well and denies any dizziness, lightheadedness, or palpitations Heart rate was occasionally in the 40s and 50s with no symptoms and an EKG was obtained showing sinus bradycardia, current heart rate is 62 Continue GI and DVT prophylaxis. Patient is medically stable for discharge today and instructed patient to follow-up with primary care provider Dr. Santillan in the outpatient setting. Patient reports she did schedule an appointment for her in the next few weeks. Thank you kindly for this consultation. We will continue to follow with general surgery during hospitalization The impression and plan of care has been dictated by Armida Fowler, Nurse Practitioner as directed. MD Enrique I have performed a history and examination and MDM of this patient, discussed the same with the dictator, and agree with the dictator's assessment and plan as written ,documented as a scribe. Based on total visit time, I have performed more than 50% of the visit. Objective - Vital Signs Vital signs: Vital Signs Temp 98.1 F 05/11/23 06:58 Pulse 62 05/11/23 12:50 Resp 18 05/11/23 06:58 BP 123/82 05/11/23 06:58 Pulse Ox 97 05/11/23 09:07 FiO2 Intake & Output 05/10/23 05/11/23 05/11/23 18:59 06:59 18:59 Other: # Voids 3 3 - Labs CBC & Chem 7: 05/10/23 06:59 05/10/23 06:59 Labs: Abnormal Lab Results - Last 24 Hours (Table) 05/10/23 05/10/23 05/10/23 Range/Units 06:59 16:37 20:10 RBC 3.64 L (4.10-5.20) X 10*6/uL Hgb 10.6 L (12.0-15.0) g/dL Hct 34.2 L (37.2-46.3) % MCHC 31.0 L (32.0-37.0) g/dL Neutrophils # 7.93 H (1.80-7.70) X 10*3/uL Eosinophils # 0 L (0.04-0.35) X 10*3/uL POC Glucose (mg/dL) 148 H 164 H (70-110) mg/dL 05/11/23 Range/Units 06:09 RBC (4.10-5.20) X 10*6/uL Hgb (12.0-15.0) g/dL Hct (37.2-46.3) % MCHC (32.0-37.0) g/dL Neutrophils # (1.80-7.70) X 10*3/uL Eosinophils # (0.04-0.35) X 10*3/uL POC Glucose (mg/dL) 151 H (70-110) mg/dL
== END 2023-05-11 14:46 | disposition home or self-care (01) ==
LOC: OR 12:44 → 4SSUR 16:30 → OR 05-09 12:27 → 4SSUR 05-09 12:27
PROVIDERS: ADMIT Surgery; ATTEND Surgery
DX: E66.01 Morbid (severe) obesity due to excess calories (principal); Z68.42 Body mass index [BMI] 45.0-49.9, adult; J45.909 Unspecified asthma, uncomplicated; E11.9 Type 2 diabetes mellitus without complications; G47.33 Obstructive sleep apnea (adult) (pediatric)
CPT/HCPCS: 43775; 94640 ×6; 94760 ×3; 93005; 97161; 97165; 81025; 80051; 80048; 82310; 82565; 83735 ×2; 84100; 84520; 85025 ×2; 88307; 83036; 74240; G0378 ×3; C1762; J2250; J0330; J1200; J1100 ×4; J2710; J0690; J2405 ×2; J2001; J1650 ×4; J3010; J1170 ×4; J3475; J0131 ×4; J1885 ×3; J2704; C9113 ×4; Q9967; J2371; J0665

== ENCOUNTER → 2023-05-17 | Outpatient (CLI) | payer BC ==
[2023-05-17 14:14] VITALS: BP 137/91; PULSE 103; RESP 16; TEMP 97.9; BMI 47.0
--- NOTE | 2023-05-17 15:00 | P.BASOAP ---
Subjective Progress Note Date: 05/17/23 Principal diagnosis: Morbid obesity Patient returns for reevaluation. Last underwent sleeve gastrectomy last Sunday. Patient tolerating 40-50 ounces of liquids most days. She says she has having some hunger spasms at times. She says she still is very hungry dislike she was in the hospital. She had few bites of a dinner roll and some fudge in the last few days. No GERD. No vomiting. Feels full. Hasn't had a bowel movement for the last 3-4 days. She is passing flatus. No fevers. Mildly tachycardic today which is similar to what she was preoperatively. Objective - Vital Signs Vital signs: Vital Signs Temp 97.9 F 05/17/23 13:51 Pulse 103 H 05/17/23 13:51 Resp 16 05/17/23 13:51 BP 137/91 05/17/23 13:51 Pulse Ox FiO2 Intake & Output 05/16/23 05/17/23 05/17/23 18:59 06:59 18:59 Weight 126.325 kg - Exam Abdomen: Soft, nondistended, incisions with minimal tenderness, mild redness beneath the glue at 3 of the 5 incisions. Glue removed there. Patient states she has ALLERGIES to adhesive at times. Assessment/Plan (1) Morbid obesity Narrative/Plan: Overall patient doing fairly well. Remove the glue at the areas where it appeared she was having a reaction. Stressed to the patient and her mother once again to avoid solid foods. Continue monitoring liquid and protein intake. Continue light lifting. May return to work on 05/28. Recheck 2 weeks. Plan: Date: 05/17/23 Initial Weight: 131.088 kg Initial BMI: 48.8 Current Weight: 126.325 kg Current BMI: 47.0 Type of Surgery: Total Volume in Band: Previous Volume: Volume Removed: Volume Added: Band Size:
== END ==
LOC: BARWHC3 13:37
PROVIDERS: ATTEND Surgery
DX: E66.01 Morbid (severe) obesity due to excess calories (principal); Z68.42 Body mass index [BMI] 45.0-49.9, adult; Z88.1 Allergy status to other antibiotic agents; R00.0 Tachycardia, unspecified
CPT/HCPCS: 99211

== ENCOUNTER 2023-06-01 14:37 | Observation (INO) | payer BC ==
--- NOTE | 2023-06-01 16:13 | ED ---
Syncope HPI - General Chief Complaint: Syncope Stated Complaint: Syncope Time Seen by Provider: 06/01/23 15:14 Source: patient, EMS, [facility] support, RN notes reviewed, old records reviewed Mode of arrival: ambulatory Limitations: no limitations - History of Present Illness Initial Comments: This is a 37-year-old female to the emergency department for evaluation. Patient comes in for evaluation regarding. Patient had a syncopal event last night on the bathroom and did have a reaction to getting the IV today. Patient has recent history of abdominal surgery, patient did have gastric sleeve Dr. Headley about a month ago now. Patient has lost about 25 pounds. She states her abdomen is bloated with abdominal pain, having nausea no vomiting MD Complaint: loss of consciousness, other (Weakness nausea and vomiting) -: days(s) Prodromal Symptoms: lightheaded, palpitations, nausea/vomiting -: second(s) Current Symptoms: lightheaded History: previous syncopal episode Context: during exertion, after urination Treatments Prior to Arrival: none - Related Data Home Medications Medication Instructions Recorded Confirmed ALPRAZolam [Xanax] 0.25 mg PO QAM PRN 12/17/15 06/01/23 Dextroamphetamine/Amphetamine 30 mg PO DAILY 11/29/22 06/01/23 [Adderall Xr 30 mg Capsule] Dextroamphetamine/Amphetamine 40 mg PO DAILY@1300 11/29/22 06/01/23 [Dextroamp-Amphetamin 20 mg Tab] EPINEPHrine (Auto Inject) [Epipen] 0.3 mg SQ DIRECTED PRN 11/29/22 06/01/23 Lurasidone HCl [Latuda] 120 mg PO HS 11/29/22 06/01/23 Sertraline [Zoloft] 200 mg PO HS 11/29/22 06/01/23 modafiniL [Provigil] 200 mg PO BID 11/29/22 06/01/23 Clobetasol Propionate [Temovate 1 applic TOPICAL BID 06/01/23 06/01/23 0.05% Cream] bisacodyL [Dulcolax] 5 mg PO TID PRN 06/01/23 06/01/23 Previous Rx's Medication Instructions Recorded Acetaminophen Tab [Tylenol] 1,000 mg PO Q6HR PRN #30 tablet 05/11/23 Ondansetron Odt [Zofran ODT] 4 mg PO Q8HR PRN 5 Days #15 tab 06/07/23 Scopolamine 1 mg/72 Hr Patch 1 patch TRANSDERM Q72H 9 Days #3 06/07/23 [TransDerm Scop] patch Simethicone Chew [Mylicon Chew] 40 mg PO QID 7 Days #28 tab 06/07/23 polyethylene glycoL 3350 [Miralax] 17 gm PO DAILY PRN packet 06/07/23 Allergies Allergy/AdvReac Type Severity Reaction Status Date / Time doxycycline Allergy Anaphylaxis Verified 06/01/23 16:43 ADHESIVE - SURGICAL Allergy Rash/Hives Uncoded 06/01/23 16:43 Review of Systems ROS Statement: Those systems with pertinent positive or pertinent negative responses have been documented in the HPI. ROS Other: All systems not noted in ROS Statement are negative. Past Medical History Past Medical History: No Reported History, Asthma, Diabetes Mellitus, Sleep Apnea/CPAP/BIPAP Additional Past Medical History / Comment(s): pre-diabetic , bipolar, idiopathic hypersomnia, anxiety disorder History of Any Multi-Drug Resistant Organisms: None Reported Past Surgical History: No Surgical Hx Reported, Bariatric Surgery Additional Past Surgical History / Comment(s): wisdom teeth removal, hymenotomy 2019, 2010 lasic eye surgery both. Gastric sleeve 05/08/23 Past Anesthesia/Blood Transfusion Reactions: No Reported Reaction Additional Past Anesthesia/Blood Transfusion Reaction / Comment(s): No blood transfusion Past Psychological History: Anxiety, Bipolar, Depression, Panic Disorder Smoking Status: Never smoker, Unknown if ever smoked Past Alcohol Use History: Rare Past Drug Use History: None Reported - Past Family History Sister(s) Family Medical History: Cancer Additional Family Medical History / Comment(s): thyroid Father Family Medical History: Cancer Additional Family Medical History / Comment(s): skin General Exam Limitations: no limitations General appearance: alert, in no apparent distress Head exam: Present: atraumatic, normocephalic, normal inspection Eye exam: Present: normal appearance, PERRL, EOMI. Absent: scleral icterus, conjunctival injection, periorbital swelling ENT exam: Present: normal exam, mucous membranes moist Neck exam: Present: normal inspection. Absent: tenderness, meningismus, lymphadenopathy Respiratory exam: Present: normal lung sounds bilaterally. Absent: respiratory distress, wheezes, rales, rhonchi, stridor Cardiovascular Exam: Present: regular rate, normal rhythm, normal heart sounds. Absent: systolic murmur, diastolic murmur, rubs, gallop, clicks GI/Abdominal exam: Present: soft, normal bowel sounds. Absent: distended, t enderness, guarding, rebound, rigid Extremities exam: Present: normal inspection, full ROM, normal capillary refill. Absent: tenderness, pedal edema, joint swelling, calf tenderness Back exam: Present: normal inspection Neurological exam: Present: alert, oriented X3, CN II-XII intact Psychiatric exam: Present: normal affect, normal mood Skin exam: Present: warm, dry, intact, normal color. Absent: rash Course Vital Signs 06/01/23 06/01/23 06/01/23 14:42 16:35 17:49 Temperature 98.1 F Pulse Rate 60 60 64 Pulse Rate [ Pulse Oximetery ] Respiratory 18 18 18 Rate Blood Pressure 134/78 114/73 121/77 Blood Pressure [Left Arm Sitting] Blood Pressure [Left Arm Standing] Blood Pressure [Left Arm Supine] Blood Pressure [Right Arm] O2 Sat by Pulse 100 100 100 Oximetry 06/01/23 06/01/23 06/02/23 19:06 22:00 02:00 Temperature 98 F Pulse Rate 59 L 72 Pulse Rate [ 66 Pulse Oximetery ] Respiratory 18 16 16 Rate Blood Pressure 107/70 123/72 Blood Pressure [Left Arm Sitting] Blood Pressure [Left Arm Standing] Blood Pressure [Left Arm Supine] Blood Pressure 95/56 [Right Arm] O2 Sat by Pulse 100 94 L 98 Oximetry 06/02/23 06/02/23 06/02/23 08:25 08:56 10:00 Temperature Pulse Rate 78 78 Pulse Rate [ Pulse Oximetery ] Respiratory 18 18 Rate Blood Pressure 118/68 111/66 Blood Pressure [Left Arm Sitting] Blood Pressure [Left Arm Standing] Blood Pressure [Left Arm Supine] Blood Pressure [Right Arm] O2 Sat by Pulse 97 87 L Oximetry 06/02/23 06/02/23 06/02/23 11:00 12:00 14:46 Temperature Pulse Rate 74 80 75 Pulse Rate [ Pulse Oximetery ] Respiratory 16 16 18 Rate Blood Pressure 104/61 118/72 119/70 Blood Pressure [Left Arm Sitting] Blood Pressure [Left Arm Standing] Blood Pressure [Left Arm Supine] Blood Pressure [Right Arm] O2 Sat by Pulse 98 Oximetry 06/02/23 06/02/23 15:00 15:08 Temperature 98.5 F 98.9 F Pulse Rate Pulse Rate [ 67 96 Pulse Oximetery ] Respiratory 18 18 Rate Blood Pressure Blood Pressure 105/67 [Left Arm Sitting] Blood Pressure 111/65 110/66 [Left Arm Standing] Blood Pressure 105/63 [Left Arm Supine] Blood Pressure [Right Arm] O2 Sat by Pulse 100 99 Oximetry - Reevaluation(s) Reevaluation #1: 06/01/23 17:07 Record is reviewed Reevaluation #2: 06/01/23 23:18 Patient symptoms are relatively unchanged here in the ER Reevaluation #3: 06/01/23 23:18 Patient informed of results and questions answered Reevaluation #4: 06/01/23 16:45 Was pt. sent in by a medical professional or institution (, PA, DEVELOPMENTAL WRITING INSTRUCTOR, urgent care, hospital, or care home...) When possible be specific @ -no Did you speak to anyone other than the patient for history (EMS, parent, family, police, friend...)? What history was obtained from this source @ -no Did you review nursing and triage notes (agree or disagree)? Why? @ -agree Are old charts reviewed (outside hosp., previous admission, EMS record, old EKG, old radiological studies, urgent care reports/EKG's, care home records)? Report findings @ -yes Differential Diagnosis (chest pain, altered mental status, abdominal pain women, abdominal pain men, vaginal bleeding, weakness, fever, dyspnea, syncope, headache, dizziness, GI bleed, back pain, seizure, CVA, palpatations, mental health, musculoskeletal)? @ -prior EKG interpreted by me (3pts min.). @ -yes X-rays interpreted by me (1pt min.). @ -no CT interpreted by me (1pt min.). @ -yes negative for acute disease U/S interpreted by me (1pt. min.). @ -no What testing was considered but not performed or refused? (CT, X-rays, U/S, labs)? Why? @ -none What meds were considered but not given or refused? Why? @ -none Did you discuss the management of the patient with other professionals (professionals i.e. , PA, DEVELOPMENTAL WRITING INSTRUCTOR, lab, RT, psych nurse, clinical social work therapist, painting manager, teacher, guest services officer, correctional case manager)? Give summary @ -no Was smoking cessation discussed for >3mins.? @ -no Was critical care preformed (if so, how long)? @ -no Were there social determinants of health that impacted care today? How? (Homelessness, low income, unemployed, alcoholism, drug addiction, transportation, low edu. Level, literacy, decrease access to med. care, halfway, rehab)? @ -none Was there de-escalation of care discussed even if they declined (Discuss DNR or withdrawal of care, Hospice)? DNR status @ -no What co-morbidities impacted this encounter? (DM, HTN, Smoking, COPD, CAD, Cancer, CVA, ARF, Chemo, Hep., AIDS, mental health diagnosis, sleep apnea, morbid obesity)? @ -none Was patient admitted / discharged? Hospital course, mention meds given and route, prescriptions, significant lab abnormalities, going to OR and other pertinent info. @ - 37 female to the emergency department for syncopal event and then another syncopal event again here in the ER today. Patient presents today for persistent weakness decreased appetite and dehydration. Patient be admitted for surgical evaluation monitor moderate regarding recent gastric sleeve surgery, IV hydration Admitted Undiagnosed new problem with uncertain prognosis? @ -no Drug Therapy requiring intensive monitoring for toxicity (Heparin, Nitro, Insulin, Cardizem)? @ -no Were any procedures done? @ -no Diagnosis/symptom? @ -Syncope Acute, or Chronic, or Acute on Chronic? @ -Acute Uncomplicated (without systemic symptoms) or Complicated (systemic symptoms)? @ -Complicated Side effects of treatment? @ -no Exacerbation, Progression, or Severe Exacerbation? @ -exacerbation Poses a threat to life or bodily function? How? (Chest pain, [place], [place], pneumonia, PE, COPD, DKA, ARF, appy, cholecystitis, CVA, Diverticulitis, Homicidal, Suicidal, threat to staff... and all critical care pts) @ -yes significant syncopal Reevaluation #5: 06/01/23 23:18 Differential Syncope: Valvular disease, hypertrophic cardiomyopathy, pulmonary embolism, tamponade, tachycardia, bradycardia, [place], hypovolemia, hemorrhage, dissection, anemia, intracranial hemorrhage, seizure, hypoglycemia, carbon monoxide poisoning, this is not meant to be an all-inclusive list. - Consultations Consultation #1: Spoke with [facility] were agrees to admit this patient EKG Findings - EKG Comments: EKG Findings:: EKG sinus 58 IA 156 QRS 90 QTC 405 Medical Decision Making - Medical Decision Making 37 female to the emergency department for syncopal event and then another syncopal event again here in the ER today. Patient presents today for persistent weakness decreased appetite and dehydration. Patient be admitted for surgical evaluation monitor moderate regarding recent gastric sleeve surgery, IV hydration - Lab Data Result diagrams: 06/06/23 16:34 06/06/23 16:34 Lab Results 06/01/23 06/01/23 06/01/23 Range/Units 16:19 16:19 16:19 WBC 8.1 (3.8-10.6) k/uL RBC 4.53 (3.80-5.40) m/uL Hgb 13.9 (11.4-16.0) gm/dL Hct 42.4 (34.0-46.0) % MCV 93.6 (80.0-100.0) fL MCH 30.7 (25.0-35.0) pg MCHC 32.8 (31.0-37.0) g/dL RDW 14.0 (11.5-15.5) % Plt Count 318 (150-450) k/uL MPV 8.6 Neutrophils % 74 % Lymphocytes % 20 % Monocytes % 3 % Eosinophils % 1 % Basophils % 0 % Neutrophils # 6.0 (1.3-7.7) k/uL Lymphocytes # 1.7 (1.0-4.8) k/uL Monocytes # 0.2 (0-1.0) k/uL Eosinophils # 0.1 (0-0.7) k/uL Basophils # 0.0 (0-0.2) k/uL Hypochromasia PT 11.2 (10.0-12.5) sec INR 1.0 (<1.2) APTT 25.1 (22.0-30.0) sec D-Dimer (<0.60) mg/L FEU Sodium 138 (137-145) mmol/L Potassium 4.4 (3.5-5.1) mmol/L Chloride 105 (98-107) mmol/L Carbon Dioxide 12 L (22-30) mmol/L Anion Gap 21 mmol/L BUN 10 (7-17) mg/dL Creatinine 0.61 (0.52-1.04) mg/dL Est GFR (CKD-EPI)AfAm >90 (>60 ml/min/1.73 sqM) Est GFR (CKD-EPI)NonAf >90 (>60 ml/min/1.73 sqM) Glucose 88 (74-99) mg/dL POC Glucose (mg/dL) (70-110) mg/dL POC Glu Tank Systems Maintainer ID Calcium 9.0 (8.4-10.2) mg/dL Phosphorus (2.5-4.5) mg/dL Magnesium 1.6 (1.6-2.3) mg/dL Total Bilirubin 0.6 (0.2-1.3) mg/dL AST 28 (14-36) U/L ALT 20 (4-34) U/L Alkaline Phosphatase 88 (38-126) U/L Troponin I (0.000-0.034) ng/mL Total Protein 7.8 (6.3-8.2) g/dL Albumin 4.5 (3.5-5.0) g/dL Lipase (23-300) U/L Urine Color Urine Appearance (Clear) Urine pH (5.0-8.0) Ur Specific [place] (1.001-1.035) Urine Protein (Negative) Urine Glucose (UA) (Negative) Urine Ketones (Negative) Urine Blood (Negative) Urine Nitrite (Negative) Urine Bilirubin (Negative) Urine Urobilinogen (<2.0) mg/dL Ur Leukocyte Esterase (Negative) Urine RBC (0-5) /hpf Urine WBC (0-5) /hpf Ur Squamous Epith Cells (0-4) /hpf Urine Bacteria (None) /hpf Urine Mucus (None) /hpf 06/01/23 06/01/23 06/01/23 Range/Units 16:19 16:19 22:15 WBC (3.8-10.6) k/uL RBC (3.80-5.40) m/uL Hgb (11.4-16.0) gm/dL Hct (34.0-46.0) % MCV (80.0-100.0) fL MCH (25.0-35.0) pg MCHC (31.0-37.0) g/dL RDW (11.5-15.5) % Plt Count (150-450) k/uL MPV Neutrophils % % Lymphocytes % % Monocytes % % Eosinophils % % Basophils % % Neutrophils # (1.3-7.7) k/uL Lymphocytes # (1.0-4.8) k/uL Monocytes # (0-1.0) k/uL Eosinophils # (0-0.7) k/uL Basophils # (0-0.2) k/uL Hypochromasia PT (10.0-12.5) sec INR (<1.2) APTT (22.0-30.0) sec D-Dimer 0.81 H (<0.60) mg/L FEU Sodium (137-145) mmol/L Potassium (3.5-5.1) mmol/L Chloride (98-107) mmol/L Carbon Dioxide (22-30) mmol/L Anion Gap mmol/L BUN (7-17) mg/dL Creatinine (0.52-1.04) mg/dL Est GFR (CKD-EPI)AfAm (>60 ml/min/1.73 sqM) Est GFR (CKD-EPI)NonAf (>60 ml/min/1.73 sqM) Glucose (74-99) mg/dL POC Glucose (mg/dL) (70-110) mg/dL POC Glu Tank Systems Maintainer ID Calcium (8.4-10.2) mg/dL Phosphorus (2.5-4.5) mg/dL Magnesium (1.6-2.3) mg/dL Total Bilirubin (0.2-1.3) mg/dL AST (14-36) U/L ALT (4-34) U/L Alkaline Phosphatase (38-126) U/L Troponin I <0.012 (0.000-0.034) ng/mL Total Protein (6.3-8.2) g/dL Albumin (3.5-5.0) g/dL Lipase (23-300) U/L Urine Color Colorless Urine Appearance Clear (Clear) Urine pH 5.5 (5.0-8.0) Ur Specific [place] 1.024 (1.001-1.035) Urine Protein 1+ H (Negative) Urine Glucose (UA) Negative (Negative) Urine Ketones 4+ H (Negative) Urine Blood Negative (Negative) Urine Nitrite Negative (Negative) Urine Bilirubin Negative (Negative) Urine Urobilinogen 2.0 (<2.0) mg/dL Ur Leukocyte Esterase Negative (Negative) Urine RBC 3 (0-5) /hpf Urine WBC <1 (0-5) /hpf Ur Squamous Epith Cells <1 (0-4) /hpf Urine Bacteria Rare H (None) /hpf Urine Mucus Rare H (None) /hpf 06/02/23 06/02/23 06/02/23 Range/Units 08:04 08:04 17:32 WBC 6.0 (3.8-10.6) k/uL RBC 3.99 (3.80-5.40) m/uL Hgb 12.2 (11.4-16.0) gm/dL Hct 37.5 (34.0-46.0) % MCV 93.8 (80.0-100.0) fL MCH 30.7 (25.0-35.0) pg MCHC 32.7 (31.0-37.0) g/dL RDW 14.1 (11.5-15.5) % Plt Count 282 (150-450) k/uL MPV 9.1 Neutrophils % 63 % Lymphocytes % 29 % Monocytes % 4 % Eosinophils % 1 % Basophils % 0 % Neutrophils # 3.8 (1.3-7.7) k/uL Lymphocytes # 1.7 (1.0-4.8) k/uL Monocytes # 0.3 (0-1.0) k/uL Eosinophils # 0.1 (0-0.7) k/uL Basophils # 0.0 (0-0.2) k/uL Hypochromasia Slight PT (10.0-12.5) sec INR (<1.2) APTT (22.0-30.0) sec D-Dimer (<0.60) mg/L FEU Sodium 140 (137-145) mmol/L Potassium 4.0 (3.5-5.1) mmol/L Chloride 109 H (98-107) mmol/L Carbon Dioxide 11 L (22-30) mmol/L Anion Gap 20 mmol/L BUN 8 (7-17) mg/dL Creatinine 0.59 (0.52-1.04) mg/dL Est GFR (CKD-EPI)AfAm >90 (>60 ml/min/1.73 sqM) Est GFR (CKD-EPI)NonAf >90 (>60 ml/min/1.73 sqM) Glucose 80 (74-99) mg/dL POC Glucose (mg/dL) 68 L (70-110) mg/dL POC Glu [employer] Systems Maintainer ID Shanel Crawford Calcium 8.6 (8.4-10.2) mg/dL Phosphorus 3.0 (2.5-4.5) mg/dL Magnesium 1.6 (1.6-2.3) mg/dL Total Bilirubin 0.4 (0.2-1.3) mg/dL AST 19 (14-36) U/L ALT 16 (4-34) U/L Alkaline Phosphatase 87 (38-126) U/L Troponin I (0.000-0.034) ng/mL Total Protein 6.3 (6.3-8.2) g/dL Albumin 3.6 (3.5-5.0) g/dL Lipase 467 H (23-300) U/L Urine Color Urine Appearance (Clear) Urine pH (5.0-8.0) Ur Specific [place] (1.001-1.035) Urine Protein (Negative) Urine Glucose (UA) (Negative) Urine Ketones (Negative) Urine Blood (Negative) Urine Nitrite (Negative) Urine Bilirubin (Negative) Urine Urobilinogen (<2.0) mg/dL Ur Leukocyte Esterase (Negative) Urine RBC (0-5) /hpf Urine WBC (0-5) /hpf Ur Squamous Epith Cells (0-4) /hpf Urine Bacteria (None) /hpf Urine Mucus (None) /hpf 06/02/23 06/02/23 06/02/23 Range/Units 18:50 20:21 22:12 WBC (3.8-10.6) k/uL RBC (3.80-5.40) m/uL Hgb (11.4-16.0) gm/dL Hct (34.0-46.0) % MCV (80.0-100.0) fL MCH (25.0-35.0) pg MCHC (31.0-37.0) g/dL RDW (11.5-15.5) % Plt Count (150-450) k/uL MPV Neutrophils % % Lymphocytes % % Monocytes % % Eosinophils % % Basophils % % Neutrophils # (1.3-7.7) k/uL Lymphocytes # (1.0-4.8) k/uL Monocytes # (0-1.0) k/uL Eosinophils # (0-0.7) k/uL Basophils # (0-0.2) k/uL Hypochromasia PT (10.0-12.5) sec INR (<1.2) APTT (22.0-30.0) sec D-Dimer (<0.60) mg/L FEU Sodium (137-145) mmol/L Potassium (3.5-5.1) mmol/L Chloride (98-107) mmol/L Carbon Dioxide (22-30) mmol/L Anion Gap mmol/L BUN (7-17) mg/dL Creatinine (0.52-1.04) mg/dL Est GFR (CKD-EPI)AfAm (>60 ml/min/1.73 sqM) Est GFR (CKD-EPI)NonAf (>60 ml/min/1.73 sqM) Glucose (74-99) mg/dL POC Glucose (mg/dL) 77 75 79 (70-110) mg/dL POC Glu Tank Systems Maintainer ID Shanel Crawford, Saba Castaneda Calcium (8.4-10.2) mg/dL Phosphorus (2.5-4.5) mg/dL Magnesium (1.6-2.3) mg/dL Total Bilirubin (0.2-1.3) mg/dL AST (14-36) U/L ALT (4-34) U/L Alkaline Phosphatase (38-126) U/L Troponin I (0.000-0.034) ng/mL Total Protein (6.3-8.2) g/dL Albumin (3.5-5.0) g/dL Lipase (23-300) U/L Urine Color Urine Appearance (Clear) Urine pH (5.0-8.0) Ur Specific [place] (1.001-1.035) Urine Protein (Negative) Urine Glucose (UA) (Negative) Urine Ketones (Negative) Urine Blood (Negative) Urine Nitrite (Negative) Urine Bilirubin (Negative) Urine Urobilinogen (<2.0) mg/dL Ur Leukocyte Esterase (Negative) Urine RBC (0-5) /hpf Urine WBC (0-5) /hpf Ur Squamous Epith Cells (0-4) /hpf Urine Bacteria (None) /hpf Urine Mucus (None) /hpf 06/03/23 06/03/23 06/03/23 Range/Units 00:20 02:15 06:21 WBC (3.8-10.6) k/uL RBC (3.80-5.40) m/uL Hgb (11.4-16.0) gm/dL Hct (34.0-46.0) % MCV (80.0-100.0) fL MCH (25.0-35.0) pg MCHC (31.0-37.0) g/dL RDW (11.5-15.5) % Plt Count (150-450) k/uL MPV Neutrophils % % Lymphocytes % % Monocytes % % Eosinophils % % Basophils % % Neutrophils # (1.3-7.7) k/uL Lymphocytes # (1.0-4.8) k/uL Monocytes # (0-1.0) k/uL Eosinophils # (0-0.7) k/uL Basophils # (0-0.2) k/uL Hypochromasia PT (10.0-12.5) sec INR (<1.2) APTT (22.0-30.0) sec D-Dimer (<0.60) mg/L FEU Sodium (137-145) mmol/L Potassium (3.5-5.1) mmol/L Chloride (98-107) mmol/L Carbon Dioxide (22-30) mmol/L Anion Gap mmol/L BUN (7-17) mg/dL Creatinine (0.52-1.04) mg/dL Est GFR (CKD-EPI)AfAm (>60 ml/min/1.73 sqM) Est GFR (CKD-EPI)NonAf (>60 ml/min/1.73 sqM) Glucose (74-99) mg/dL POC Glucose (mg/dL) 84 81 111 H (70-110) mg/dL POC Glu Tank Systems Maintainer ID Jason, Saba Jason, Saba Yamile, Sarah Calcium (8.4-10.2) mg/dL Phosphorus (2.5-4.5) mg/dL Magnesium (1.6-2.3) mg/dL Total Bilirubin (0.2-1.3) mg/dL AST (14-36) U/L ALT (4-34) U/L Alkaline Phosphatase (38-126) U/L Troponin I (0.000-0.034) ng/mL Total Protein (6.3-8.2) g/dL Albumin (3.5-5.0) g/dL Lipase (23-300) U/L Urine Color Urine Appearance (Clear) Urine pH (5.0-8.0) Ur Specific [place] (1.001-1.035) Urine Protein (Negative) Urine Glucose (UA) (Negative) Urine Ketones (Negative) Urine Blood (Negative) Urine Nitrite (Negative) Urine Bilirubin (Negative) Urine Urobilinogen (<2.0) mg/dL Ur Leukocyte Esterase (Negative) Urine RBC (0-5) /hpf Urine WBC (0-5) /hpf Ur Squamous Epith Cells (0-4) /hpf Urine Bacteria (None) /hpf Urine Mucus (None) /hpf 06/03/23 06/03/23 06/03/23 Range/Units 11:36 14:20 14:20 WBC 6.0 (3.8-10.6) k/uL RBC 4.11 (3.80-5.40) m/uL Hgb 12.6 (11.4-16.0) gm/dL Hct 37.7 (34.0-46.0) % MCV 91.8 (80.0-100.0) fL MCH 30.6 (25.0-35.0) pg MCHC 33.4 (31.0-37.0) g/dL RDW 14.2 (11.5-15.5) % Plt Count 268 (150-450) k/uL MPV 9.1 Neutrophils % % Lymphocytes % % Monocytes % % Eosinophils % % Basophils % % Neutrophils # (1.3-7.7) k/uL Lymphocytes # (1.0-4.8) k/uL Monocytes # (0-1.0) k/uL Eosinophils # (0-0.7) k/uL Basophils # (0-0.2) k/uL Hypochromasia PT (10.0-12.5) sec INR (<1.2) APTT (22.0-30.0) sec D-Dimer (<0.60) mg/L FEU Sodium 139 (137-145) mmol/L Potassium 3.6 (3.5-5.1) mmol/L Chloride 108 H (98-107) mmol/L Carbon Dioxide 14 L (22-30) mmol/L Anion Gap 17 mmol/L BUN 7 (7-17) mg/dL Creatinine 0.47 L (0.52-1.04) mg/dL Est GFR (CKD-EPI)AfAm >90 (>60 ml/min/1.73 sqM) Est GFR (CKD-EPI)NonAf >90 (>60 ml/min/1.73 sqM) Glucose 112 H (74-99) mg/dL POC Glucose (mg/dL) 112 H (70-110) mg/dL POC Glu Tank Systems Maintainer ID Shanel Crawford Calcium 8.5 (8.4-10.2) mg/dL Phosphorus (2.5-4.5) mg/dL Magnesium (1.6-2.3) mg/dL Total Bilirubin (0.2-1.3) mg/dL AST (14-36) U/L ALT (4-34) U/L Alkaline Phosphatase (38-126) U/L Troponin I (0.000-0.034) ng/mL Total Protein (6.3-8.2) g/dL Albumin (3.5-5.0) g/dL Lipase (23-300) U/L Urine Color Urine Appearance (Clear) Urine pH (5.0-8.0) Ur Specific [place] (1.001-1.035) Urine Protein (Negative) Urine Glucose (UA) (Negative) Urine Ketones (Negative) Urine Blood (Negative) Urine Nitrite (Negative) Urine Bilirubin (Negative) Urine Urobilinogen (<2.0) mg/dL Ur Leukocyte Esterase (Negative) Urine RBC (0-5) /hpf Urine WBC (0-5) /hpf Ur Squamous Epith Cells (0-4) /hpf Urine Bacteria (None) /hpf Urine Mucus (None) /hpf 06/03/23 06/03/23 06/04/23 Range/Units 17:23 20:55 06:31 WBC (3.8-10.6) k/uL RBC (3.80-5.40) m/uL Hgb (11.4-16.0) gm/dL Hct (34.0-46.0) % MCV (80.0-100.0) fL MCH (25.0-35.0) pg MCHC (31.0-37.0) g/dL RDW (11.5-15.5) % Plt Count (150-450) k/uL MPV Neutrophils % % Lymphocytes % % Monocytes % % Eosinophils % % Basophils % % Neutrophils # (1.3-7.7) k/uL Lymphocytes # (1.0-4.8) k/uL Monocytes # (0-1.0) k/uL Eosinophils # (0-0.7) k/uL Basophils # (0-0.2) k/uL Hypochromasia PT (10.0-12.5) sec INR (<1.2) APTT (22.0-30.0) sec D-Dimer (<0.60) mg/L FEU Sodium (137-145) mmol/L Potassium (3.5-5.1) mmol/L Chloride (98-107) mmol/L Carbon Dioxide (22-30) mmol/L Anion Gap mmol/L BUN (7-17) mg/dL Creatinine (0.52-1.04) mg/dL Est GFR (CKD-EPI)AfAm (>60 ml/min/1.73 sqM) Est GFR (CKD-EPI)NonAf (>60 ml/min/1.73 sqM) Glucose (74-99) mg/dL POC Glucose (mg/dL) 87 123 H 93 (70-110) mg/dL POC Glu [employer] Maintainer ID Schoenberg, Shanel Carrier, Sarah Carrier, Sarah Calcium (8.4-10.2) mg/dL Phosphorus (2.5-4.5) mg/dL Magnesium (1.6-2.3) mg/dL Total Bilirubin (0.2-1.3) mg/dL AST (14-36) U/L ALT (4-34) U/L Alkaline Phosphatase (38-126) U/L Troponin I (0.000-0.034) ng/mL Total Protein (6.3-8.2) g/dL Albumin (3.5-5.0) g/dL Lipase (23-300) U/L Urine Color Urine Appearance (Clear) Urine pH (5.0-8.0) Ur Specific [place] (1.001-1.035) Urine Protein (Negative) Urine Glucose (UA) (Negative) Urine Ketones (Negative) Urine Blood (Negative) Urine Nitrite (Negative) Urine Bilirubin (Negative) Urine Urobilinogen (<2.0) mg/dL Ur Leukocyte Esterase (Negative) Urine RBC (0-5) /hpf Urine WBC (0-5) /hpf Ur Squamous Epith Cells (0-4) /hpf Urine Bacteria (None) /hpf Urine Mucus (None) /hpf - Radiology Data Radiology results: pending, report reviewed, image reviewed Disposition Clinical Impression: Dehydration, Vasovagal syncope, Morbid obesity, Post-operative pain Disposition: ADMITTED IP TO THIS HOSP Condition: Fair Is patient prescribed a controlled substance at d/c from ED?: No Time of Disposition: 22:00
[2023-06-01 16:25] LABS: Basophils % (A) 0 %; Eosinophils # (A) 0.1 k/uL (0-0.7); Eosinophils % (A) 1 %; HCT 42.4 % (34.0-46.0); HGB 13.9 gm/dL (11.4-16.0); Lymphocytes # (A) 1.7 k/uL (1.0-4.8); Lymphocytes % (A) 20 %; MCH 30.7 pg (25.0-35.0); MCHC 32.8 g/dL (31.0-37.0); MCV 93.6 fL (80.0-100.0); Mean Platelet Volume 8.6; Monocytes # (A) 0.2 k/uL (0-1.0); Monocytes % (A) 3 %; Neutrophils % (A) 74 %; Platelet Count 318 k/uL (150-450); RBC 4.53 m/uL (3.80-5.40); WBC 8.1 k/uL (3.8-10.6)
[2023-06-01] MEDS: SODIUM CHLORIDE 0.9% 1,000 ML IV STA ×2 (16:32→16:35)
[2023-06-01] MEDS: SODIUM CHLORIDE 0.9% 500 ML 500 ML IV STA (16:33)
[2023-06-01 16:34] LABS: ALT 20 U/L (4-34); African American GFR (CKD) >90 (>60 ml/min/1.73 sqM); Anion Gap 21 mmol/L; Blood Urea Nitrogen 10 mg/dL (7-17); Carbon Dioxide 12 mmol/L (22-30); Chloride 105 mmol/L (98-107); Glucose 88 mg/dL (74-99); Non-African American GFR(CKD) >90 (>60 ml/min/1.73 sqM); Sodium 138 mmol/L (137-145); Total Bilirubin 0.6 mg/dL (0.2-1.3)
[2023-06-01 16:42] LABS: Partial Thromboplastin Time 25.1 sec (22.0-30.0); Prothrombin Time 11.2 sec (10.0-12.5)
[2023-06-01 16:44] LABS: AST 28 U/L (14-36); Potassium 4.4 mmol/L (3.5-5.1)
[2023-06-01 16:45] LABS: Albumin 4.5 g/dL (3.5-5.0); Alkaline Phosphatase 88 U/L (38-126); Magnesium 1.6 mg/dL (1.6-2.3); Total Protein 7.8 g/dL (6.3-8.2)
[2023-06-01] MEDS ORDERED: MORPHINE SULFATE 4 MG/ML SYRINGE IV PRN (22:01)
[2023-06-01] MEDS ORDERED: NALOXONE 0.4 MG/ML 1 ML VIAL IV PRN (22:01)
[2023-06-01] MEDS: SODIUM CHLORIDE 0.9% 1,000 ML IV SCH (22:30)
[2023-06-01 23:32] LABS: Appearance,Urine Clear (Clear); Bacteria,Urine Rare /hpf; Bilirubin,Urine Negative (Negative); Blood,Urine Negative (Negative); Color,Urine Colorless; Glucose,Urine (UA) Negative (Negative); Ketones,Urine 4+ (Negative); Leukocyte Esterase,Urine Negative (Negative); Mucus,Urine Rare /hpf; Nitrite,Urine Negative (Negative); PH, Urine 5.5 (5.0-8.0); Protein,Urine 1+ (Negative); RBC,Urine 3 /hpf (0-5); Specific Gravity,Urine 1.024 (1.001-1.035); Squamous Epithelial Cell,Urine <1 /hpf (0-4); WBC,Urine <1 /hpf (0-5)
[2023-06-01] MEDS: ONDANSETRON 4 MG/2 ML VIAL IVP PRN (23:36)
[2023-06-01] MEDS: PANTOPRAZOLE 40 MG/10 ML VIAL IV SCH (23:36)
--- NOTE | 2023-06-01 23:56 | CT ---
EXAMINATION TYPE: CT angio chest DATE OF EXAM: 06/01/2023 COMPARISON: NONE HISTORY: ELEVATED D DIMER CT DLP: 892.4 mGycm. Automated Exposure Control for Dose Reduction was Utilized. CONTRAST: CTA scan of the thorax is performed with IV Contrast, patient injected with 50 mL of Isovue 370, pulm onary embolism protocol. MIP Images are created on CT scanner and reviewed. FINDINGS: Some respiratory motion artifact compromise is seen, this limits evaluation particularly fo r subcentimeter nodules. LUNGS: The lungs are grossly clear, there is no concerning parenchymal mass or nodule identified. T here is no pleural effusion or pneumothorax seen. The tracheobronchial tree is patent. MEDIASTINUM: Suboptimal study with most dense contrast in SVC. There is no convincing CT evidence fo r acute pulmonary embolism. Satisfactory enhancement of the thoracic aorta without aneurysm or dissec tion. There are no greater than 1 cm hilar or mediastinal lymph nodes. No cardiomegaly or pericardi al effusion is seen. OTHER: Please refer to same day CT abdomen and pelvis report for complete details on the upper abdome n. IMPRESSION: Suboptimal study without CT evidence for acute pulmonary embolism. No suspicious acute pu lmonary process.
--- NOTE | 2023-06-01 23:58 | CT ---
EXAMINATION TYPE: CT abdomen pelvis w con DATE OF EXAM: 06/01/2023 HISTORY: BARIATRIC SURGERY gastric sleeve 05/08/23 CT DLP: 1942.1mGycm Automated Exposure Control for Dose Reduction was Utilized. CONTRAST: CT scan of the abdomen and pelvis is performed without oral and with IV Contrast, patient injected wi th 50 mL of Isovue 370. COMPARISON: None. FINDINGS: LUNG BASES: Please refer to same-day CT chest for complete details on the lung bases. LIVER/GB: No significant abnormality is appreciated. PANCREAS: No significant abnormality is seen. SPLEEN: No significant abnormality is seen. ADRENALS: No significant abnormality is seen. KIDNEYS: No significant abnormality is seen. BOWEL: Surgical changes from gastric sleeve procedure. No abnormal small or large bowel dilatation. A ppendix within normal limits from the base of the cecum. Slightly redundant sigmoid colon incidentall y noted. UTERUS/ADNEXA: Anteverted uterus. LYMPH NODES: No greater than 1cm abdominal or pelvic lymph nodes are appreciated. OSSEOUS STRUCTURES: No significant abnormality is seen. OTHER: Scar tissue over the right anterior abdomen and axial image 51 is present from laparoscopic po rt. IMPRESSION: No bowel obstruction. No significant acute finding is seen .
[2023-06-02 08:32] LABS: Basophils % (A) 0 %; Eosinophils # (A) 0.1 k/uL (0-0.7); Eosinophils % (A) 1 %; HCT 37.5 % (34.0-46.0); HGB 12.2 gm/dL (11.4-16.0); Hypochromasia Slight; Lymphocytes # (A) 1.7 k/uL (1.0-4.8); Lymphocytes % (A) 29 %; MCH 30.7 pg (25.0-35.0); MCHC 32.7 g/dL (31.0-37.0); MCV 93.8 fL (80.0-100.0); Mean Platelet Volume 9.1; Monocytes # (A) 0.3 k/uL (0-1.0); Monocytes % (A) 4 %; Neutrophils # (A) 3.8 k/uL (1.3-7.7); Neutrophils % (A) 63 %; Platelet Count 282 k/uL (150-450); RBC 3.99 m/uL (3.80-5.40); RDW 14.1 % (11.5-15.5)
[2023-06-02 08:38] LABS: ALT 16 U/L (4-34); AST 19 U/L (14-36); African American GFR (CKD) >90 (>60 ml/min/1.73 sqM); Albumin 3.6 g/dL (3.5-5.0); Alkaline Phosphatase 87 U/L (38-126); Anion Gap 20 mmol/L; Blood Urea Nitrogen 8 mg/dL (7-17); Calcium 8.6 mg/dL (8.4-10.2); Carbon Dioxide 11 mmol/L (22-30); Chloride 109 mmol/L (98-107); Glucose 80 mg/dL (74-99); Lipase 467 U/L (23-300); Magnesium 1.6 mg/dL (1.6-2.3); Non-African American GFR(CKD) >90 (>60 ml/min/1.73 sqM); Sodium 140 mmol/L (137-145); Total Bilirubin 0.4 mg/dL (0.2-1.3); Total Protein 6.3 g/dL (6.3-8.2)
[2023-06-02] MEDS ORDERED: bisacodyL 5 MG TABLET.DR PO PRN (10:06)
[2023-06-02] MEDS ORDERED: ACETAMINOPHEN TAB 500 MG TAB PO PRN (10:06)
[2023-06-02] MEDS ORDERED: ALPRAZolam 0.25 MG TAB PO PRN (10:06)
--- NOTE | 2023-06-02 11:27 | P.GSCN ---
History of Present Illness Consult date: 06/02/23 Reason for Consult: Recent Hx of Sleeve Gastrectomy History of present illness: Patient is a 37-year-old female with a recent history of laparoscopic sleeve gastrectomy on 05/08/2023 who presents with a several day history of nausea vomiting and dehydration. Patient states that for the past week she has had decreased by mouth intake secondary to nausea and multiple bouts of emesis. Denies any hematemesis. No fevers or chills. No shortness of breath or chest pain. She states that she has intermittent epigastric abdominal pain that is worse with emesis. Admits to flatus, but no bowel movement for the past week. She states that approximately 6-7 days ago she had multiple bouts of nonbloody diarrhea. No current hematochezia or melena. No prior episodes such as this. No recent travel or sick contacts. Upon presentation to [facility] on the emergency department a computed tomography scan was obtained which showed no evidence of pulmonary embolism. A CT abdomen and pelvis was also obtained which showed no acute process without evidence of inflammation or perforation of the sleeve gastrectomy staple line. Review of Systems Negative Except for as stated above Past Medical History Past Medical History: No Reported History, Asthma, Diabetes Mellitus, Sleep Apnea/CPAP/BIPAP Additional Past Medical History / Comment(s): pre-diabetic , bipolar, idiopathic hypersomnia, anxiety disorder History of Any Multi-Drug Resistant Organisms: None Reported Past Surgical History: No Surgical Hx Reported, Bariatric Surgery Additional Past Surgical History / Comment(s): wisdom teeth removal, hymenotomy 2019, 2009 lasic eye surgery both. Gastric sleeve 05/08/23 Past Anesthesia/Blood Transfusion Reactions: No Reported Reaction Additional Past Anesthesia/Blood Transfusion Reaction / Comm: No blood transfu salvador Past Psychological History: Anxiety, Bipolar, Depression, Panic Disorder Smoking Status: Never smoker, Unknown if ever smoked Past Alcohol Use History: Rare Past Drug Use History: None Reported - Past Family History Sister(s) Family Medical History: Cancer Additional Family Medical History / Comment(s): thyroid Father Family Medical History: Cancer Additional Family Medical History / Comment(s): skin Medications and Allergies Home Medications Medication Instructions Recorded Confirmed Type ALPRAZolam [Xanax] 0.25 mg PO QAM PRN 12/16/06/01/23 History Dextroamphetamine/Amphetamine 30 mg PO DAILY 11/29/22 06/01/23 History [Adderall Xr 30 mg Capsule] Dextroamphetamine/Amphetamine 40 mg PO DAILY@1300 11/29/22 06/01/23 History [Dextroamp-Amphetamin 20 mg Tab] EPINEPHrine (Auto Inject) [Epipen] 0.3 mg SQ DIRECTED PRN 11/29/22 06/01/23 History Lurasidone HCl [Latuda] 120 mg PO HS 11/29/22 06/01/23 History Sertraline [Zoloft] 200 mg PO HS 11/29/22 06/01/23 History modafiniL [Provigil] 200 mg PO BID 11/29/22 06/01/23 History Acetaminophen Tab [Tylenol] 1,000 mg PO Q6HR PRN #30 tablet 05/11/23 06/01/23 Rx Ondansetron Odt [Zofran Odt] 4 mg PO Q8HR PRN #9 tab 05/11/23 06/01/23 Rx Clobetasol Propionate [Temovate 1 applic TOPICAL BID 06/01/23 06/01/23 History 0.05% Cream] bisacodyL [Dulcolax] 5 mg PO TID PRN 06/01/23 06/01/23 History Allergies Allergy/AdvReac Type Severity Reaction Status Date / Time doxycycline Allergy Anaphylaxis Verified 06/01/23 16:43 ADHESIVE - SURGICAL Allergy Rash/Hives Uncoded 06/01/23 16:43 Surgical - Exam Vital Signs Temp Pulse Resp BP Pulse Ox 98.1 F 60 18 134/78 100 06/01/23 14:42 06/01/23 14:42 06/01/23 14:42 06/01/23 14:42 06/01/23 14:42 Gen: AxO, NAD Pulm: non-labored respirations Abd: soft, mildly-tender in epigastrium, minimally distended, no guarding/rebound/rigidity Incisions: C/D/I, no erythema or fluctuence appreciated Extrem: no edema seen Results - Labs 06/02/23 08:04 06/02/23 08:04 Abnormal Lab Results - Last 24 Hours (Table) 06/01/23 06/01/23 06/01/23 Range/Units 16:19 16:19 22:15 D-Dimer 0.81 H (<0.60) mg/L FEU Chloride (98-107) mmol/L Carbon Dioxide 12 L (22-30) mmol/L Lipase (23-300) U/L Urine Protein 1+ H (Negative) Urine Ketones 4+ H (Negative) Urine Bacteria Rare H (None) /hpf Urine Mucus Rare H (None) /hpf 06/02/23 Range/Units 08:04 D-Dimer (<0.60) mg/L FEU Chloride 109 H (98-107) mmol/L Carbon Dioxide 11 L (22-30) mmol/L Lipase 467 H (23-300) U/L Urine Protein (Negative) Urine Ketones (Negative) Urine Bacteria (None) /hpf Urine Mucus (None) /hpf Diabetes panel 06/01/23 06/02/23 Range/Units 16:19 08:04 Sodium 138 140 (137-145) mmol/L Potassium 4.4 4.0 (3.5-5.1) mmol/L Chloride 105 109 H (98-107) mmol/L Carbon Dioxide 12 L 11 L (22-30) mmol/L BUN 10 8 (7-17) mg/dL Creatinine 0.61 0.59 (0.52-1.04) mg/dL Glucose 88 80 (74-99) mg/dL Calcium 9.0 8.6 (8.4-10.2) mg/dL AST 28 19 (14-36) U/L ALT 20 16 (4-34) U/L Alkaline Phosphatase 88 87 (38-126) U/L Total Protein 7.8 6.3 (6.3-8.2) g/dL Albumin 4.5 3.6 (3.5-5.0) g/dL Calcium panel 06/01/23 06/02/23 Range/Units 16:19 08:04 Calcium 9.0 8.6 (8.4-10.2) mg/dL Phosphorus 3.0 (2.5-4.5) mg/dL Albumin 4.5 3.6 (3.5-5.0) g/dL Pituitary panel 06/01/23 06/02/23 Range/Units 16:19 08:04 Sodium 138 140 (137-145) mmol/L Potassium 4.4 4.0 (3.5-5.1) mmol/L Chloride 105 109 H (98-107) mmol/L Carbon Dioxide 12 L 11 L (22-30) mmol/L BUN 10 8 (7-17) mg/dL Creatinine 0.61 0.59 (0.52-1.04) mg/dL Glucose 88 80 (74-99) mg/dL Calcium 9.0 8.6 (8.4-10.2) mg/dL Adrenal panel 06/01/23 06/02/23 Range/Units 16:19 08:04 Sodium 138 140 (137-145) mmol/L Potassium 4.4 4.0 (3.5-5.1) mmol/L Chloride 105 109 H (98-107) mmol/L Carbon Dioxide 12 L 11 L (22-30) mmol/L BUN 10 8 (7-17) mg/dL Creatinine 0.61 0.59 (0.52-1.04) mg/dL Glucose 88 80 (74-99) mg/dL Calcium 9.0 8.6 (8.4-10.2) mg/dL Total Bilirubin 0.6 0.4 (0.2-1.3) mg/dL AST 28 19 (14-36) U/L ALT 20 16 (4-34) U/L Alkaline Phosphatase 88 87 (38-126) U/L Total Protein 7.8 6.3 (6.3-8.2) g/dL Albumin 4.5 3.6 (3.5-5.0) g/dL Assessment and Plan Assessment: Patient is a 37 year old female with recent history of sleeve gastrectomy in 04/2023 who presents with N/V and dehydration Plan: -Diet as tolerated -PRN pain and nausea control -IVF hydration -No current indication for abx from general surgery standpoint -No acute surgical intervention Jayjay Holman MD General Surgery
[2023-06-02] MEDS: AMPHETAMINE PO SCH (12:55)
[2023-06-02] MEDS: DEXTROAMPHETAMINE PO SCH (12:55)
[2023-06-02] MEDS: PROCHLORPERAZINE INJ 10 MG/2 ML VIAL IVP STA (15:07)
--- NOTE | 2023-06-02 15:55 | P.HPIM ---
History of Present Illness H&P Date: 06/02/23 Chief Complaint: Syncopal episode * 37-year-old patient with past medical history significant for asthma, [id number] diverticulitis, obstructive sleep apnea, morbid obesity, history of depression, bipolar disorder, panic disorder and anxiety presents to the emergency department after syncopal episode. Patient had gastric sleeve procedure done in April 2023. Patient presents for syncopal episode 1 day prior to admission. Patient said ever since her surgery she has lost about 25 pounds. She complained of nausea, abdominal distention however no vomiting. Patient complains of generalized weakness. Dizziness and palpitations. * At the time of presentation in ER patient remained hemodynamically stable * Blood work obtained in ER including CBC showed WBC of 8.1 hemoglobin 13.9 platelets 318 INR of 1 * Serum chemistry showed sodium 138 potassium 4.4 carbon dioxide 12 BUNs 10 creatinine 0.61 and lipase of 467 * Patient had a CT chest, CT abdomen and pelvis obtained which was negative for acute intrathoracic process * CT abdomen pelvis showed surgical changes from gastric sleeve procedure no abnormal small and large bowel dilatation appendix within normal limits no significant abnormality noted of pancreatitis * Patient was started on fluid resuscitation, home medications reviewed and reconciled in admitted to medical floor with general surgery consultation * Patient also had a troponin and EKG obtained which was negative REVIEW OF SYSTEMS: Loss of consciousness, nausea, abdominal distention CONSTITUTIONAL: No fever, no malaise, no fatigue. HEENT: No recent visual problems or hearing problems. Denied any sore throat. CARDIOVASCULAR: No chest pain, orthopnea, PND, no palpitations, no syncope. PULMONARY: No shortness of breath, no cough, no hemoptysis. GASTROINTESTINAL: No diarrhea, , no vomiting, NEUROLOGICAL: No headaches, no weakness, no numbness. HEMATOLOGICAL: Denies any bleeding or petechiae. GENITOURINARY: Denies any burning micturition, frequency, or urgency. MUSCULOSKELETAL/RHEUMATOLOGICAL: Denies any joint pain, swelling, or any muscle pain. ENDOCRINE: Denies any polyuria or polydipsia. PHYSICAL EXAMINATION: GENERAL: The patient is alrt and oriented x3, not in any acute distress. Well developed, well nourished. HEENT: Pupils are round and equally reacting to light. EOMI. No scleral icterus. CARDIOVASCULAR: S1 and S2 present. No murmurs, rubs, or gallops. PULMONARY: Chest is clear to auscultation, no wheezing or crackles. ABDOMEN: Soft, nontender, nondistended, normoactive bowel sounds. No palpable organomegaly. MUSCULOSKELETAL: No joint swelling or deformity. EXTREMITIES: No cyanosis, clubbing, or pedal edema. NEUROLOGICAL: Gross neurological examination did not reveal any focal deficits. Past Medical History Past Medical History: No Reported History, Asthma, Diabetes Mellitus, Sleep Apnea/CPAP/BIPAP Additional Past Medical History / Comment(s): pre-diabetic , bipolar, idiopathic hypersomnia, anxiety disorder History of Any Multi-Drug Resistant Organisms: None Reported Past Surgical History: No Surgical Hx Reported, Bariatric Surgery Additional Past Surgical History / Comment(s): wisdom teeth removal, hymenotomy 2019, 2010 lasic eye surgery both. Gastric sleeve 05/08/23 Past Anesthesia/Blood Transfusion Reactions: No Reported Reaction Additional Past Anesthesia/Blood Transfusion Reaction / Comment(s): No blood transfusion Past Psychological History: Anxiety, Bipolar, Depression, Panic Disorder Smoking Status: Never smoker, Unknown if ever smoked Past Alcohol Use History: Rare Past Drug Use History: None Reported - Past Family History Sister(s) Family Medical History: Cancer Additional Family Medical History / Comment(s): thyroid Father Family Medical History: Cancer Additional Family Medical History / Comment(s): skin Medications and Allergies Home Medications Medication Instructions Recorded Confirmed Type ALPRAZolam [Xanax] 0.25 mg PO QAM PRN 12/17/15 06/01/23 History Dextroamphetamine/Amphetamine 30 mg PO DAILY 11/29/22 06/01/23 History [Adderall Xr 30 mg Capsule] Dextroamphetamine/Amphetamine 40 mg PO DAILY@1300 11/29/22 06/01/23 History [Dextroamp-Amphetamin 20 mg Tab] EPINEPHrine (Auto Inject) [Epipen] 0.3 mg SQ DIRECTED PRN 11/29/22 06/01/23 History Lurasidone HCl [Latuda] 120 mg PO HS 11/29/22 06/01/23 History Sertraline [Zoloft] 200 mg PO HS 11/29/22 06/01/23 History modafiniL [Provigil] 200 mg PO BID 11/29/22 06/01/23 History Acetaminophen Tab [Tylenol] 1,000 mg PO Q6HR PRN #30 tablet 05/11/23 06/01/23 Rx Ondansetron Odt [Zofran Odt] 4 mg PO Q8HR PRN #9 tab 05/11/23 06/01/23 Rx Clobetasol Propionate [Temovate 1 applic TOPICAL BID 06/01/23 06/01/23 History 0.05% Cream] bisacodyL [Dulcolax] 5 mg PO TID PRN 06/01/23 06/01/23 History Allergies Allergy/AdvReac Type Severity Reaction Status Date / Time doxycycline Allergy Anaphylaxis Verified 06/01/23 16:43 ADHESIVE - SURGICAL Allergy Rash/Hives Uncoded 06/01/23 16:43 Physical Exam Vitals: Vital Signs Temp Pulse Pulse Resp BP BP Pulse Ox 06/02/23 08:56 78 18 118/68 87 L 06/02/23 08:25 97 06/02/23 02:00 98 F 66 16 95/56 98 06/01/23 22:00 72 16 123/72 94 L 06/01/23 19:06 59 L 18 107/70 100 06/01/23 17:49 64 18 121/77 100 06/01/23 16:35 60 18 114/73 100 06/01/23 14:42 98.1 F 60 18 134/78 100 Intake and Output 06/01/23 06/02/23 06/02/23 22:59 06:59 14:59 Other: Voiding Method Toilet Results CBC & Chem 7: 06/02/23 08:04 06/02/23 08:04 Labs: Abnormal Lab Results - Last 24 Hours (Table) 06/01/23 06/01/23 06/01/23 Range/Units 16:19 16:19 22:15 D-Dimer 0.81 H (<0.60) mg/L FEU Chloride (98-107) mmol/L Carbon Dioxide 12 L (22-30) mmol/L Lipase (23-300) U/L Urine Protein 1+ H (Negative) Urine Ketones 4+ H (Negative) Urine Bacteria Rare H (None) /hpf Urine Mucus Rare H (None) /hpf 06/02/23 Range/Units 08:04 D-Dimer (<0.60) mg/L FEU Chloride 109 H (98-107) mmol/L Carbon Dioxide 11 L (22-30) mmol/L Lipase 467 H (23-300) U/L Urine Protein (Negative) Urine Ketones (Negative) Urine Bacteria (None) /hpf Urine Mucus (None) /hpf Thrombosis Risk Factor Assmnt - DVT/VTE Prophylaxis DVT/VTE Prophylaxis: Pharmacologic Prophylaxis ordered, Mechanical Prophylaxis ordered Assessment and Plan Assessment: Assessment and plan * Acute syncopal episode * morbid obesity status post gastric sleeve April 2023 * Metabolic acidosis * History of anxiety, depression, bipolar disorder * Transient hypotension * In regards to syncopal episode, orthostatic vitals ordered, continue patient on fluid resuscitation follow-up on serum chemistry * In regards to history of gastric sleeve surgery, general surgery consulted to evaluate the recommendations patient started on a liquid diet * In regards to metabolic acidosis continue follow-up on metabolic panel post hydration * In regards to history of mood disorder home medications reviewed and reconciled * CODE STATUS full code
[2023-06-02] MEDS: DEXTROSE 5%-0.45% NACL 1,000 ML IV SCH (17:45)
[2023-06-02 17:54] LABS: Glucose,Whole Blood 68 mg/dL (70-110)
[2023-06-02 18:53] LABS: Glucose,Whole Blood 77 mg/dL (70-110)
[2023-06-02 20:22] LABS: Glucose,Whole Blood 75 mg/dL (70-110)
[2023-06-02] MEDS: CLOBETASOL PROP 0.05% CR 15GM TOPICAL SCH (21:32)
[2023-06-02] MEDS: SERTRALINE 100 MG TAB PO SCH (21:33)
[2023-06-02] MEDS: LURASIDONE 60 MG TAB PO SCH (21:33)
[2023-06-02 22:14] LABS: Glucose,Whole Blood 79 mg/dL (70-110)
[2023-06-03 00:22] LABS: Glucose,Whole Blood 84 mg/dL (70-110)
[2023-06-03 02:19] LABS: Glucose,Whole Blood 81 mg/dL (70-110)
[2023-06-03 06:22] LABS: Glucose,Whole Blood 111 mg/dL (70-110)
[2023-06-03] MEDS: ENOXAPARIN 40 MG/0.4 ML SYRINGE SQ SCH (10:28)
[2023-06-03 11:48] LABS: Glucose,Whole Blood 112 mg/dL (70-110)
--- NOTE | 2023-06-03 14:24 | P.PN ---
Subjective Progress Note Date: 06/03/23 CHIEF COMPLAINT: Nausea vomiting HISTORY OF PRESENT ILLNESS: The patient is a 37-year-old female status post sleeve gastrectomy. She comes in with poor oral intake following sleeve gastrectomy for over 4 days with nausea and dehydration. ROS: No reports of nausea and vomiting. No bowel movements. No fevers or chills. No new chest pain. No productive sputum PHYSICAL EXAM: VITAL SIGNS: Reviewed CONSTITUTIONAL: Well developed and in no acute distress. EYES: Conjuctivae without sclera icterus. Extraocular movements grossly intact. HEAD, EARS, NOSE, THROAT: Moist buccal mucosa. Head is atraumatic, normocephalic. Hears conversational speech. No nasal drainage. RESPIRATORY: Non-labored respirations and equal bilateral excursions. CARDIOVASCULAR: Palpable 2+ radial pulses. ABDOMEN: No peritonitis MUSCULOSKELETAL: No gross deformity of the lower extremities noted. No clubbing. No cyanosis. SKIN: Good skin turgor. Well perfused. NEUROLOGIC: Cranial nerves II through XII grossly intact. No focal or lateralizing signs. PSYCH: Appropriate affect. Alert and oriented to person, place and time. CLINICAL LABS: Reviewed. STUDIES: CT reviewed demonstrating no leaks of free air. This is my interpretation. ASSESSMENT: 1. Dehydration 2. Nausea vomiting 3. Status post sleeve gastrectomy 4. Morbid obesity due to excess calories PLAN: 1. Zofran scheduled 2. Decadron scheduled 3. Scopolamine patch scheduled 4. She is likely 6-L of fluids behind for 3 to 4 days decreased oral intake. Adjust IV to 150 mL/hr after 2 L bolus. Objective - Vital Signs Vital signs: Vital Signs Temp 98 F 06/03/23 07:00 Pulse 84 06/03/23 07:00 Resp 20 06/03/23 07:00 BP 127/72 06/03/23 07:00 Pulse Ox 96 06/03/23 07:00 FiO2 Intake & Output 06/02/23 06/03/23 06/03/23 18:59 06:59 18:59 Weight 121.109 kg Other: Voiding Method Toilet # Voids 0 1 - Labs CBC & Chem 7: 06/06/23 16:34 06/06/23 16:34 Labs: Abnormal Lab Results - Last 24 Hours (Table) 01/13/24 01/14/24 01/14/24 Range/Units 17:32 06:21 11:36 POC Glucose (mg/dL) 68 L 111 H 112 H (70-110) mg/dL
--- NOTE | 2023-06-03 14:55 | P.PN ---
Subjective Progress Note Date: 06/03/23 * 37-year-old patient with past medical history significant for asthma, agy-rlavflp-oeyxylrqi diverticulitis, obstructive sleep apnea, morbid obesity, history of depression, bipolar disorder, panic disorder and anxiety presents to the emergency department after syncopal episode. Patient had gastric sleeve procedure done in April 2023. Patient presents for syncopal episode 1 day prior to admission. Patient said ever since her surgery she has lost about 25 pounds. She complained of nausea, abdominal distention however no vomiting. Patient complains of generalized weakness. Dizziness and palpit ations. * At the time of presentation in ER patient remained hemodynamically stable * Blood work obtained in ER including CBC showed WBC of 8.1 hemoglobin 13.9 platelets 318 INR of 1 * Serum chemistry showed sodium 138 potassium 4.4 carbon dioxide 12 BUNs 10 creatinine 0.61 and lipase of 467 * Patient had a CT chest, CT abdomen and pelvis obtained which was negative for acute intrathoracic process * CT abdomen pelvis showed surgical changes from gastric sleeve procedure no abnormal small and large bowel dilatation appendix within normal limits no significant abnormality noted of pancreatitis * Patient was started on fluid resuscitation, home medications reviewed and reconciled in admitted to medical floor with general surgery consultation * Patient also had a troponin and EKG obtained which was negative * 06/03/2023: Patient seen and evaluated bedside during my evaluation patient continues to have minimal intake, seen by general surgery IV fluid rate increase,. We'll follow-up on serum chemistry and basic metabolic panel encourage oral intake continue with antiemetic follow-up on lipase levels as well.. Appreciate input from general surgery consulted management recommended PHYSICAL EXAMINATION: GENERAL: The patient is alrt and oriented x3, not in any acute distress. Well developed, well nourished. HEENT: Pupils are round and equally reacting to light. EOMI. No scleral icterus. CARDIOVASCULAR: S1 and S2 present. No murmurs, rubs, or gallops. PULMONARY: Chest is clear to auscultation, no wheezing or crackles. ABDOMEN: Soft, nontender, nondistended, normoactive bowel sounds. No palpable organomegaly. MUSCULOSKELETAL: No joint swelling or deformity. EXTREMITIES: No cyanosis, clubbing, or pedal edema. NEUROLOGICAL: Gross neurological examination did not reveal any focal deficits. Objective - Vital Signs Vital signs: Vital Signs Temp 98 F 06/03/23 07:00 Pulse 84 06/03/23 07:00 Resp 20 06/03/23 07:00 BP 127/72 06/03/23 07:00 Pulse Ox 96 06/03/23 07:00 FiO2 Intake & Output 06/02/23 06/03/23 06/03/23 18:59 06:59 18:59 Weight 121.109 kg Other: Voiding Method Toilet # Voids 0 1 - Labs CBC & Chem 7: 06/02/23 08:04 06/02/23 08:04 Labs: Abnormal Lab Results - Last 24 Hours (Table) 06/02/23 06/03/23 06/03/23 Range/Units 17:32 06:21 11:36 POC Glucose (mg/dL) 68 L 111 H 112 H (70-110) mg/dL Assessment and Plan Assessment: Assessment and plan * Acute syncopal episode secondary to dehydration * History of gastric sleeve with intractable postprandial nausea and abdominal pain * morbid obesity status post gastric sleeve April 2023 * Metabolic acidosis * History of anxiety, depression, bipolar disorder * Transient hypotension * In regards to syncopal episode, orthostatic vitals negative post fluid resuscitation continue patient on fluid resuscitation follow-up on serum chemistry * In regards to history of gastric sleeve surgery, general surgery consulted, appreciate recommendations continue liquid diet * In regards to metabolic acidosis continue follow-up on metabolic panel post hydration * In regards to history of mood disorder home medications reviewed and reconciled * CODE STATUS full code
[2023-06-03 15:04] LABS: HCT 37.7 % (34.0-46.0); HGB 12.6 gm/dL (11.4-16.0); MCH 30.6 pg (25.0-35.0); MCHC 33.4 g/dL (31.0-37.0); MCV 91.8 fL (80.0-100.0); Mean Platelet Volume 9.1; Platelet Count 268 k/uL (150-450); RBC 4.11 m/uL (3.80-5.40); RDW 14.2 % (11.5-15.5)
[2023-06-03 15:30] LABS: African American GFR (CKD) >90 (>60 ml/min/1.73 sqM); Anion Gap 17 mmol/L; Blood Urea Nitrogen 7 mg/dL (7-17); Calcium 8.5 mg/dL (8.4-10.2); Carbon Dioxide 14 mmol/L (22-30); Chloride 108 mmol/L (98-107); Glucose 112 mg/dL (74-99); Non-African American GFR(CKD) >90 (>60 ml/min/1.73 sqM); Potassium 3.6 mmol/L (3.5-5.1); Sodium 139 mmol/L (137-145)
[2023-06-03] MEDS: ONDANSETRON 4 MG/2 ML VIAL IVP SCH (16:06)
[2023-06-03] MEDS: SODIUM CHLORIDE 0.9% 2,000 ML IV ONE (16:06)
[2023-06-03] MEDS: DEXAMETHASONE SOD PHOSPHATE 10 MG/ML 1 ML VIAL IVP ONE (16:06)
[2023-06-03] MEDS: SCOPOLAMINE 1 MG/72 HR PATCH TRANSDERM SCH (16:13)
[2023-06-03] MEDS: DEXAMETHASONE SOD PHOSPHATE 4 MG/ML 1 ML VIAL IVP SCH (17:24)
[2023-06-03 17:40] LABS: Glucose,Whole Blood 87 mg/dL (70-110)
[2023-06-03] MEDS: SODIUM CHLORIDE 0.9% 1,000 ML IV SCH (18:25)
[2023-06-03 20:56] LABS: Glucose,Whole Blood 123 mg/dL (70-110)
[2023-06-04 06:32] LABS: Glucose,Whole Blood 93 mg/dL (70-110)
[2023-06-04 11:40] LABS: Glucose,Whole Blood 95 mg/dL (70-110)
--- NOTE | 2023-06-04 12:45 | P.PN ---
Subjective Progress Note Date: 06/04/23 * 37-year-old patient with past medical history significant for asthma, wgf-hzhxlnh-cnmikxhve diverticulitis, obstructive sleep apnea, morbid obesity, history of depression, bipolar disorder, panic disorder and anxiety presents to the emergency department after syncopal episode. Patient had gastric sleeve procedure done in April 2023. Patient presents for syncopal episode 1 day prior to admission. Patient said ever since her surgery she has lost about 25 pounds. She complained of nausea, abdominal distention however no vomiting. Patient complains of generalized weakness. Dizziness and palpit ations. * At the time of presentation in ER patient remained hemodynamically stable * Blood work obtained in ER including CBC showed WBC of 8.1 hemoglobin 13.9 platelets 318 INR of 1 * Serum chemistry showed sodium 138 potassium 4.4 carbon dioxide 12 BUNs 10 creatinine 0.61 and lipase of 467 * Patient had a CT chest, CT abdomen and pelvis obtained which was negative for acute intrathoracic process * CT abdomen pelvis showed surgical changes from gastric sleeve procedure no abnormal small and large bowel dilatation appendix within normal limits no significant abnormality noted of pancreatitis * Patient was started on fluid resuscitation, home medications reviewed and reconciled in admitted to medical floor with general surgery consultation * Patient also had a troponin and EKG obtained which was negative * 06/03/2023: Patient seen and evaluated bedside during my evaluation patient continues to have minimal intake, seen by general surgery IV fluid rate increase,. We'll follow-up on serum chemistry and basic metabolic panel encourage oral intake continue with antiemetic follow-up on lipase levels as well.. Appreciate input from general surgery consulted management recommended * 06/04/2023: Patient seen and evaluated bedside, patient states abdominal discomfort and nausea has improved, continue to have minimal oral intake. Continue current regimen including scopolamine patch, dexamethasone, IV Protonix. Patient does not want daily blood work PHYSICAL EXAMINATION: GENERAL: The patient is alrt and oriented x3, not in any acute distress. Well developed, well nourished. HEENT: Pupils are round and equally reacting to light. EOMI. No scleral icterus. CARDIOVASCULAR: S1 and S2 present. No murmurs, rubs, or gallops. PULMONARY: Chest is clear to auscultation, no wheezing or crackles. ABDOMEN: Soft, nontender, nondistended, normoactive bowel sounds. No palpable organomegaly. MUSCULOSKELETAL: No joint swelling or deformity. EXTREMITIES: No cyanosis, clubbing, or pedal edema. NEUROLOGICAL: Gross neurological examination did not reveal any focal deficits. Objective - Vital Signs Vital signs: Vital Signs Temp 97.6 F 06/04/23 07:00 Pulse 80 06/04/23 07:00 Resp 16 06/04/23 07:00 BP 125/84 06/04/23 07:00 Pulse Ox 96 06/04/23 07:00 FiO2 Intake & Output 06/03/23 06/04/23 06/04/23 18:59 06:59 18:59 Intake Total 210 Balance 210 Intake: Oral 210 Other: # Voids 1 1 # Bowel Movements 0 - Labs CBC & Chem 7: 06/03/23 14:20 06/03/23 14:20 Labs: Abnormal Lab Results - Last 24 Hours (Table) 06/03/23 06/03/23 Range/Units 14:20 20:55 Chloride 108 H (98-107) mmol/L Carbon Dioxide 14 L (22-30) mmol/L Creatinine 0.47 L (0.52-1.04) mg/dL Glucose 112 H (74-99) mg/dL POC Glucose (mg/dL) 123 H (70-110) mg/dL Assessment and Plan Assessment: Assessment and plan * Acute syncopal episode secondary to dehydration resolved * History of gastric sleeve with intractable postprandial nausea and abdominal pain * morbid obesity status post gastric sleeve April 2023 * Metabolic acidosis * History of anxiety, depression, bipolar disorder * Transient hypotension * In regards to syncopal episode, orthostatic vitals negative post fluid resuscitation continue patient on fluid resuscitation follow-up on serum chemistry * In regards to history of gastric sleeve surgery, general surgery consulted, appreciate recommendations continue liquid diet, advance as tolerated * In regards to metabolic acidosis continue follow-up on metabolic panel post hydration * In regards to history of mood disorder home medications reviewed and reconcil ed * CODE STATUS full code
--- NOTE | 2023-06-04 15:06 | P.PN ---
Subjective Progress Note Date: 06/04/23 CHIEF COMPLAINT: Weakness with nausea and vomiting HISTORY OF PRESENT ILLNESS: Patient reports that her nausea and vomiting are improving. She's had no further vomiting. She is mildly nauseated during the night. And pain is improving. She reports not having a bowel movement for 10 days. She is having flatus. Afebrile. WBC 6 Hgb 12.6 potassium 3.6 PHYSICAL EXAM: VITAL SIGNS: Reviewed. GENERAL: Well-developed in no acute distress. ABDOMEN: Soft. Nondistended. Incision site clean dry and intact NEUROLOGIC: Alert and oriented. Cranial nerves II through XII grossly intact. ASSESSMENT: 1. Nausea and vomiting with dehydration 2. Recent sleeve gastrectomy 05/08/2023 PLAN: -Advance diet to pured -Dulcolax suppository added for constipation -Continue IV fluids Physician Proposal Rep note has been reviewed by physician. Signing provider agrees with the documented findings, assessment, and plan of care. Objective - Vital Signs Vital signs: Vital Signs Temp 97.6 F 06/04/23 07:00 Pulse 80 06/04/23 07:00 Resp 16 06/04/23 07:00 BP 125/84 06/04/23 07:00 Pulse Ox 96 06/04/23 07:00 FiO2 Intake & Output 06/03/23 06/04/23 06/04/23 18:59 06:59 18:59 Intake Total 210 Balance 210 Intake: Oral 210 Other: # Voids 1 1 # Bowel Movements 0 - Labs CBC & Chem 7: 06/03/23 14:20 06/03/23 14:20 Labs: Abnormal Lab Results - Last 24 Hours (Table) 06/03/23 06/03/23 06/03/23 Range/Units 11:36 14:20 20:55 Chloride 108 H (98-107) mmol/L Carbon Dioxide 14 L (22-30) mmol/L Creatinine 0.47 L (0.52-1.04) mg/dL Glucose 112 H (74-99) mg/dL POC Glucose (mg/dL) 112 H 123 H (70-110) mg/dL
[2023-06-04] MEDS: bisacodyL 10 MG SUPP RECTAL STA (15:40)
[2023-06-05] MEDS: SIMETHICONE 80 MG CHEWABLE PO SCH (12:04)
--- NOTE | 2023-06-05 12:42 | P.PN ---
Subjective Progress Note Date: 06/05/23 CHIEF COMPLAINT: Weakness with nausea and vomiting HISTORY OF PRESENT ILLNESS: Patient continues to feel nauseated. She is able to tolerate the pured diet. She reports that the food does not appear to increase the nausea. But there is a constant nausea. She reports still some abdominal discomfort but nothing has worsened. She had a small hard bowel movement after the suppository yesterday. Afebrile. PHYSICAL EXAM: VITAL SIGNS: Reviewed. GENERAL: Well-developed in no acute distress. ABDOMEN: Soft. Nondistended. Incision site clean dry and intact NEUROLOGIC: Alert and oriented. Cranial nerves II through XII grossly intact. ASSESSMENT: 1. Nausea and vomiting with dehydration 2. Recent sleeve gastrectomy 05/08/2023 PLAN: -Upper GI ordered for tomorrow morning -We'll give 1 dose of lactulose and duplex suppository for constipation -Encourage patient to ambulate -Continue pureed diet -Continue IV fluids Physician Book Critic note has been reviewed by physician. Signing provider agrees with the documented findings, assessment, and plan of care. I have personally seen and examined the patient, reviewed the EVAPORATOR REPAIRER /PAs history, exam and MDM and agree with the assessment and plan as written. Based on total visit time, I have performed more than 50% of the visit. As above: Patient still having nausea. Intake is improved but still less than ideal. We'll order esophagram at this time. Continue increasing stool softeners. Possible discharge tomorrow. Objective - Vital Signs Vital signs: Vital Signs Temp 97.5 F L 06/05/23 07:55 Pulse 52 L 06/05/23 07:55 Resp 17 06/05/23 07:55 BP 104/65 06/05/23 07:55 Pulse Ox 97 06/05/23 07:55 FiO2 Intake & Output 06/04/23 06/05/23 06/05/23 18:59 06:59 18:59 Intake Total 148 Balance 148 Intake: Oral 148 Other: Voiding Method Toilet # Voids 2 1 # Bowel Movements 1 - Labs CBC & Chem 7: 06/03/23 14:20 06/03/23 14:20
--- NOTE | 2023-06-05 13:40 | P.PN ---
Subjective Progress Note Date: 06/05/23 * 37-year-old patient with past medical history significant for asthma, lih-dhsfssz-ltgtihpfo diverticulitis, obstructive sleep apnea, morbid obesity, history of depression, bipolar disorder, panic disorder and anxiety presents to the emergency department after syncopal episode. Patient had gastric sleeve procedure done in April 2023. Patient presents for syncopal episode 1 day prior to admission. Patient said ever since her surgery she has lost about 25 pounds. She complained of nausea, abdominal distention however no vomiting. Patient complains of generalized weakness. Dizziness and palpit ations. * At the time of presentation in ER patient remained hemodynamically stable * Blood work obtained in ER including CBC showed WBC of 8.1 hemoglobin 13.9 platelets 318 INR of 1 * Serum chemistry showed sodium 138 potassium 4.4 carbon dioxide 12 BUNs 10 creatinine 0.61 and lipase of 467 * Patient had a CT chest, CT abdomen and pelvis obtained which was negative for acute intrathoracic process * CT abdomen pelvis showed surgical changes from gastric sleeve procedure no abnormal small and large bowel dilatation appendix within normal limits no significant abnormality noted of pancreatitis * Patient was started on fluid resuscitation, home medications reviewed and reconciled in admitted to medical floor with general surgery consultation * Patient also had a troponin and EKG obtained which was negative * 06/03/2023: Patient seen and evaluated bedside during my evaluation patient continues to have minimal intake, seen by general surgery IV fluid rate increase,. We'll follow-up on serum chemistry and basic metabolic panel encourage oral intake continue with antiemetic follow-up on lipase levels as well.. Appreciate input from general surgery consulted management recommended * 06/04/2023: Patient seen and evaluated bedside, patient states abdominal discomfort and nausea has improved, continue to have minimal oral intake. Continue current regimen including scopolamine patch, dexamethasone, IV Protonix. Patient does not want daily blood work * 06/05/2023: Patient seen and evaluated bedside, patient states she was able to have some oral intake, however does feel constipated, did receive a suppository patient started on simethicone as well will encourage oral intake. Upper GI study ordered appreciate input from surgery PHYSICAL EXAMINATION: GENERAL: The patient is alrt and oriented x3, not in any acute distress. Well developed, well nourished. HEENT: Pupils are round and equally reacting to light. EOMI. No scleral icterus. CARDIOVASCULAR: S1 and S2 present. No murmurs, rubs, or gallops. PULMONARY: Chest is clear to auscultation, no wheezing or crackles. ABDOMEN: Soft, nontender, nondistended, normoactive bowel sounds. No palpable organomegaly. MUSCULOSKELETAL: No joint swelling or deformity. EXTREMITIES: No cyanosis, clubbing, or pedal edema. NEUROLOGICAL: Gross neurological examination did not reveal any focal deficits. Objective - Vital Signs Vital signs: Vital Signs Temp 97.5 F L 06/05/23 07:55 Pulse 52 L 06/05/23 07:55 Resp 17 06/05/23 07:55 BP 104/65 06/05/23 07:55 Pulse Ox 97 06/05/23 07:55 FiO2 Intake & Output 06/04/23 06/05/23 06/05/23 18:59 06:59 18:59 Intake Total 148 Balance 148 Intake: Oral 148 Other: Voiding Method Toilet # Voids 2 1 # Bowel Movements 1 - Labs CBC & Chem 7: 06/03/23 14:20 06/03/23 14:20 Assessment and Plan Assessment: Assessment and plan * Acute syncopal episode secondary to dehydration resolved * History of gastric sleeve with intractable postprandial nausea and abdominal pain * morbid obesity status post gastric sleeve April 2023 * Metabolic acidosis * History of anxiety, depression, bipolar disorder * Transient hypotension * In regards to syncopal episode, orthostatic vitals negative post fluid resuscitation continue patient on fluid resuscitation follow-up on serum chemistry * In regards to history of gastric sleeve surgery, general surgery consulted, appreciate recommendations continue liquid diet, advance as tolerated, upper GI study ordered per surgery * In regards to metabolic acidosis continue follow-up on metabolic panel post hydration * In regards to history of mood disorder home medications reviewed and reconciled * CODE STATUS full code
[2023-06-05] MEDS: LACTULOSE 20 GM/30 ML CUP PO ONE (14:24)
[2023-06-05] MEDS: bisacodyL 10 MG SUPP RECTAL STA (14:24)
--- NOTE | 2023-06-06 12:37 | P.PN ---
Subjective Progress Note Date: 06/06/23 CHIEF COMPLAINT: Weakness with nausea and vomiting HISTORY OF PRESENT ILLNESS: Patient reports that the nausea is better this morning. She did have a small bowel movement with the suppository yesterday. She refused the lactulose. Patient did eat an egg with 3 cheeses and covered with spaghetti sauce this morning. Family did bring this [place]. She's tolerated it. Unfortunately since she ate she cannot have the upper GI completed today. Afebrile. PHYSICAL EXAM: VITAL SIGNS: Reviewed. GENERAL: Well-developed in no acute distress. ABDOMEN: Soft. Nondistended. Nontender. Incision site clean dry and intact NEUROLOGIC: Alert and oriented. Cranial nerves II through XII grossly intact. ASSESSMENT: 1. Nausea and vomiting with dehydration 2. Recent sleeve gastrectomy 05/08/2023 PLAN: -Upper GI rescheduled for tomorrow. Patient ate this morning -Continue antiemetics -Encourage patient to ambulate -Continue pureed diet -Continue IV fluids Physician Superintendent Maintenance note has been reviewed by physician. Signing provider agrees with the documented findings, assessment, and plan of care. I have personally seen and examined the patient, reviewed the DINKEY ENGINE FIRER/FIREMAN /PAs history, exam and MDM and agree with the assessment and plan as written. Based on total visit time, I have performed more than 50% of the visit. As above: Patient seems to be doing better. Still not drinking a lot of liquids however tolerating pured diet fairly well. Nausea is improved however still present. Await esophagogram tomorrow. If no significant findings would advise discharge with close outpatient follow-up. Objective - Vital Signs Vital signs: Vital Signs Temp 97.9 F 06/06/23 07:00 Pulse 50 L 06/06/23 07:00 Resp 20 06/06/23 07:00 BP 109/63 06/06/23 07:00 Pulse Ox 97 06/06/23 07:00 FiO2 Intake & Output 06/05/23 06/06/23 06/06/23 18:59 06:59 18:59 Intake Total 148 Balance 148 Intake: Oral 148 Other: Voiding Method Toilet # Voids 2 1 - Labs CBC & Chem 7: 06/03/23 14:20 06/03/23 14:20
--- NOTE | 2023-06-06 13:01 | P.PN ---
Subjective Progress Note Date: 06/06/23 * 37-year-old patient with past medical history significant for asthma, axz-mrsgwsf-hdnmojrig diverticulitis, obstructive sleep apnea, morbid obesity, history of depression, bipolar disorder, panic disorder and anxiety presents to the emergency department after syncopal episode. Patient had gastric sleeve procedure done in April 2023. Patient presents for syncopal episode 1 day prior to admission. Patient said ever since her surgery she has lost about 25 pounds. She complained of nausea, abdominal distention however no vomiting. Patient complains of generalized weakness. Dizziness and palpit ations. * At the time of presentation in ER patient remained hemodynamically stable * Blood work obtained in ER including CBC showed WBC of 8.1 hemoglobin 13.9 platelets 318 INR of 1 * Serum chemistry showed sodium 138 potassium 4.4 carbon dioxide 12 BUNs 10 creatinine 0.61 and lipase of 467 * Patient had a CT chest, CT abdomen and pelvis obtained which was negative for acute intrathoracic process * CT abdomen pelvis showed surgical changes from gastric sleeve procedure no abnormal small and large bowel dilatation appendix within normal limits no significant abnormality noted of pancreatitis * Patient was started on fluid resuscitation, home medications reviewed and reconciled in admitted to medical floor with general surgery consultation * Patient also had a troponin and EKG obtained which was negative * 06/03/2023: Patient seen and evaluated bedside during my evaluation patient continues to have minimal intake, seen by general surgery IV fluid rate increase,. We'll follow-up on serum chemistry and basic metabolic panel encourage oral intake continue with antiemetic follow-up on lipase levels as well.. Appreciate input from general surgery consulted management recommended * 06/04/2023: Patient seen and evaluated bedside, patient states abdominal discomfort and nausea has improved, continue to have minimal oral intake. Continue current regimen including scopolamine patch, dexamethasone, IV Protonix. Patient does not want daily blood work * 06/05/2023: Patient seen and evaluated bedside, patient states she was able to have some oral intake, however does feel constipated, did receive a suppository patient started on simethicone as well will encourage oral intake. Upper GI study ordered appreciate input from surgery * 06/06/2023: Patient seen and evaluated bedside, on assessment patient is awake and alert and does complain of postprandial nausea however slight improvement noted. Schedule for upper GI study today. Patient counseled regarding follow-up basic metabolic panel to see how her electrolyte abnormalities , patient has been refusing blood draw. Holding orders in place for checkup of electrolyte panel PHYSICAL EXAMINATION: GENERAL: The patient is alrt and oriented x3, not in any acute distress. Well developed, well nourished. HEENT: Pupils are round and equally reacting to light. EOMI. No scleral icterus. CARDIOVASCULAR: S1 and S2 present. No murmurs, rubs, or gallops. PULMONARY: Chest is clear to auscultation, no wheezing or crackles. ABDOMEN: Soft, nontender, nondistended, normoactive bowel sounds. No palpable organomegaly. MUSCULOSKELETAL: No joint swelling or deformity. EXTREMITIES: No cyanosis, clubbing, or pedal edema. NEUROLOGICAL: Gross neurological examination did not reveal any focal deficits. Objective - Vital Signs Vital signs: Vital Signs Temp 97.9 F 06/06/23 07:00 Pulse 50 L 06/06/23 07:00 Resp 20 06/06/23 07:00 BP 109/63 06/06/23 07:00 Pulse Ox 97 06/06/23 07:00 FiO2 Intake & Output 06/05/23 06/06/23 06/06/23 18:59 06:59 18:59 Intake Total 148 Balance 148 Intake: Oral 148 Other: Voiding Method Toilet # Voids 2 1 - Labs CBC & Chem 7: 06/03/23 14:20 06/03/23 14:20 Assessment and Plan Assessment: Assessment and plan * Acute syncopal episode secondary to dehydration resolved * History of gastric sleeve with intractable postprandial nausea and abdominal pain * morbid obesity status post gastric sleeve April 2023 * Metabolic acidosis * History of anxiety, depression, bipolar disorder * Transient hypotension * In regards to syncopal episode, orthostatic vitals negative post fluid resuscitation continue patient on fluid resuscitation follow-up on serum chemistry * In regards to history of gastric sleeve surgery, general surgery consulted, appreciate recommendations continue liquid diet, advance as tolerated, upper GI study ordered per surgery * In regards to metabolic acidosis continue follow-up on metabolic panel post hy dration * In regards to history of mood disorder home medications reviewed and reconciled * CODE STATUS full code
[2023-06-06] MEDS: SODIUM CHLORIDE 0.9% 1,000 ML IV SCH (16:09)
[2023-06-06] MEDS: polyethylene glycoL 3350 17 GM POWD.PACK PO SCH (18:21)
[2023-06-06 18:44] LABS: African American GFR (CKD) >90 (>60 ml/min/1.73 sqM); Anion Gap 12 mmol/L; Blood Urea Nitrogen 12 mg/dL (7-17); Calcium 9.2 mg/dL (8.4-10.2); Carbon Dioxide 16 mmol/L (22-30); Chloride 110 mmol/L (98-107); Glucose 113 mg/dL (74-99); Non-African American GFR(CKD) >90 (>60 ml/min/1.73 sqM); Potassium 3.9 mmol/L (3.5-5.1); Sodium 138 mmol/L (137-145)
[2023-06-07 02:09] LABS: Basophils # (A) 0.02 X 10*3/uL (0.00-0.10); Basophils % (A) 0.3 %; Eosinophils # (A) 0.01 X 10*3/uL (0.04-0.35); Eosinophils % (A) 0.1 %; HCT 39.6 % (37.2-46.3); HGB 12.8 g/dL (12.0-15.0); Lymphocytes # (A) 1.58 X 10*3/uL (0.90-5.00); Lymphocytes % (A) 22.3 %; MCH 29.7 pg (27.0-32.0); MCHC 32.3 g/dL (32.0-37.0); MCV 91.9 FL (80.0-97.0); Mean Platelet Volume 12.5 FL (9.5-12.2); Monocytes % (A) 5.6 %; NRBC Per 100 WBC 0 X 10*3/uL (0.00-0.01); Neutrophils # (A) 5.03 X 10*3/uL (1.80-7.70); Neutrophils % (A) 71.1 %; Platelet Count 304 X 10*3/uL (140-440); RBC 4.31 X 10*6/uL (4.10-5.20); RDW 15.7 % (11.5-14.5); WBC 7.08 X 10*3/uL (4.50-10.00)
[2023-06-07 05:23] VITALS: RESP 16
--- NOTE | 2023-06-07 12:28 | P.PN ---
Subjective Progress Note Date: 06/07/23 CHIEF COMPLAINT: Weakness with nausea and vomiting HISTORY OF PRESENT ILLNESS: Patient reports that she is feeling better today. No further nausea and vomiting. She is tolerating the pured diet and liquids. She is having flatus. No bowel movement. Patient scheduled for upper GI today. Afebrile PHYSICAL EXAM: VITAL SIGNS: Reviewed. GENERAL: Well-developed in no acute distress. ABDOMEN: Soft. Nondistended. Nontender. Incision site clean dry and intact NEUROLOGIC: Alert and oriented. Cranial nerves II through XII grossly intact. ASSESSMENT: 1. Nausea and vomiting with dehydration 2. Recent sleeve gastrectomy 05/08/2023 PLAN: -Upper GI scheduled for today -Continue antiemetics -Encourage patient to ambulate -Continue pureed diet -Continue IV fluids -Further recommendations forthcoming per upper GI results. Physician Horizontal Boring Mill Set Up Operator note has been reviewed by physician. Signing provider agrees with the documented findings, assessment, and plan of care. I have personally seen and examined the patient, reviewed the COLOR PRINT INSPECTOR /PAs history, exam and MDM and agree with the assessment and plan as written. Based on total visit time, I have performed more than 50% of the visit. As above: Patient doing better today. Tolerating liquids. Awaiting final report from esophagram. Anticipate discharge today. Objective - Vital Signs Vital signs: Vital Signs Temp 97.7 F 06/07/23 07:00 Pulse 51 L 06/07/23 07:00 Resp 16 06/07/23 07:00 BP 117/73 06/07/23 07:00 Pulse Ox 97 06/07/23 07:00 FiO2 Intake & Output 06/06/23 06/07/23 06/07/23 18:59 06:59 18:59 Intake Total 210 Balance 210 Intake: Oral 210 Other: Voiding Method Toilet # Voids 1 2 - Labs CBC & Chem 7: 06/06/23 16:34 06/06/23 16:34 Labs: Abnormal Lab Results - Last 24 Hours (Table) 06/06/23 06/06/23 Range/Units 16:34 16:34 RDW 15.7 H (11.5-14.5) % MPV 12.5 H (9.5-12.2) FL Eosinophils # 0.01 L (0.04-0.35) X 10*3/uL Chloride 110 H (98-107) mmol/L Carbon Dioxide 16 L (22-30) mmol/L Glucose 113 H (74-99) mg/dL
--- NOTE | 2023-06-07 13:07 | FL ---
EXAMINATION TYPE: FL UGI w esophagus DATE OF EXAM: 06/07/2023 COMPARISON: 05/09/2023 HISTORY: Nausea and vomiting TECHNIQUE: A single contrast UGI study is performed. A total of 30 seconds of fluoroscopic time was utilized during procedure and 9 images obtained. Total dose area product (DAP) in uGy*m?, mGy*cm? (o r similar): Not provided. FINDINGS: Limited exam as the patient patient could only tolerate a couple of swallows of barium. The esophagus shows normal motility and emptying into the stomach. No evidence of hiatal hernia or o bstruction noted. Limited imaging of the remaining portion stomach demonstrates no diagnostic evidenc e of Limited imaging of the stomach demonstrates no definite. The duodenal bulb, sweep, and proximal small bowel loops are unremarkable. IMPRESSION: 1. Limited exam as the patient only tolerated a couple swallows of barium demonstrates no evidence of obstruction or extravasation. Contrast fills immediately from the esophagus into the stomach
--- NOTE | 2023-06-07 13:37 | P.DS ---
Providers Date of admission: 06/04/23 10:25 Expected date of discharge: 06/07/23 Attending physician: Rolf Hilton Consults: 06/01/23 22:01 Consult Physician Routine Consulting Provider: Abdirahman Headley Consult Reason/Comments: known Do you want consulting provider notified?: Yes Primary care physician: [facility] Course: * 37-year-old patient with past medical history significant for asthma, [id number] diverticulitis, obstructive sleep apnea, morbid obesity, history of depression, bipolar disorder, panic disorder and anxiety presents to the emergency department after syncopal episode. Patient had gastric sleeve procedure done in April 2023. Patient presents for syncopal episode 1 day prior to admission. Patient said ever since her surgery she has lost about 25 pounds. She complained of nausea, abdominal distention however no vomiting. Patient complains of generalized weakness. Dizziness and palpitations. * At the time of presentation in ER patient remained hemodynamically stable * Blood work obtained in ER including CBC showed WBC of 8.1 hemoglobin 13.9 platelets 318 INR of 1 * Serum chemistry showed sodium 138 potassium 4.4 carbon dioxide 12 BUNs 10 creatinine 0.61 and lipase of 467 * Patient had a CT chest, CT abdomen and pelvis obtained which was negative for acute intrathoracic process * CT abdomen pelvis showed surgical changes from gastric sleeve procedure no abnormal small and large bowel dilatation appendix within normal limits no significant abnormality noted of pancreatitis * Patient was started on fluid resuscitation, home medications reviewed and reconciled in admitted to medical floor with general surgery consultation * Patient also had a troponin and EKG obtained which was negative * 06/03/2023: Patient seen and evaluated bedside during my evaluation patient continues to have minimal intake, seen by general surgery IV fluid rate increase,. We'll follow-up on serum chemistry and basic metabolic panel encourage oral intake continue with antiemetic follow-up on lipase levels as well.. Appreciate input from general surgery consulted management recommended * 06/04/2023: Patient seen and evaluated bedside, patient states abdominal discomfort and nausea has improved, continue to have minimal oral intake. Continue current regimen including scopolamine patch, dexamethasone, IV Protonix. Patient does not want daily blood work * 06/05/2023: Patient seen and evaluated bedside, patient states she was able to have some oral intake, however does feel constipated, did receive a suppository patient started on simethicone as well will encourage oral intake. Upper GI study ordered appreciate input from surgery * 06/06/2023: Patient seen and evaluated bedside, on assessment patient is awake and alert and does complain of postprandial nausea however slight improvement noted. Schedule for upper GI study today. Patient counseled regarding follow-up basic metabolic panel to see how her electrolyte abnormalities , patient has been refusing blood draw. Holding orders in place for checkup of electrolyte panel * 06/07/2023: Patient seen and evaluated bedside. Patient underwent upper GI study which shows contrast was immediately from esophagus into stomach no evidence of obstruction or extravasation was noted. Patient in general does feel better, requesting to be discharged later today. Home medications miguel graves already has Zofran, patient given prescription for scopolamine patch as well as MiraLAX as needed [id number] PHYSICAL EXAMINATION: GENERAL: The patient is alrt and oriented x3, not in any acute distress. Well developed, well nourished. HEENT: Pupils are round and equally reacting to light. EOMI. No scleral icterus. CARDIOVASCULAR: S1 and S2 present. No murmurs, rubs, or gallops. PULMONARY: Chest is clear to auscultation, no wheezing or crackles. ABDOMEN: Soft, nontender, nondistended, normoactive bowel sounds. No palpable organomegaly. MUSCULOSKELETAL: No joint swelling or deformity. EXTREMITIES: No cyanosis, clubbing, or pedal edema. NEUROLOGICAL: Gross neurological examination did not reveal any focal deficits. Assessment: Assessment and plan * Acute syncopal episode secondary to dehydration resolved * History of gastric sleeve with intractable postprandial nausea and abdominal pain * morbid obesity status post gastric sleeve April 2023 * Metabolic acidosis * History of anxiety, depression, bipolar disorder * Transient hypotension * In regards to syncopal episode, orthostatic vitals negative post fluid resuscitation continue patient on fluid resuscitation follow-up on serum chemistry * In regards to history of gastric sleeve surgery, general surgery consulted, appreciate recommendations >> continue liquid diet, advance as tolerated, upper GI study COMPLETED * In regards to metabolic acidosis IMPROVED continue follow-up on metabolic panel post hydration * In regards to history of mood disorder home medications reviewed and reconciled Patient Condition at Discharge: Fair Plan - Discharge Summary Discharge Rx Participant: No New Discharge Prescriptions: New polyethylene glycoL 3350 [Miralax] 17 gm PO DAILY PRN packet PRN Reason: Constipation Simethicone Chew [Mylicon Chew] 40 mg PO QID 7 Days #28 tab Scopolamine 1 mg/72 Hr Patch [TransDerm Scop] 1 patch TRANSDERM Q72H 9 Days #3 patch Continue ALPRAZolam [Xanax] 0.25 mg PO QAM PRN PRN Reason: Anxiety Dextroamphetamine/Amphetamine [Adderall Xr 30 mg Capsule] 30 mg PO DAILY Dextroamphetamine/Amphetamine [Dextroamp-Amphetamin 20 mg Tab] 40 mg PO DAILY@1300 modafiniL [Provigil] 200 mg PO BID Acetaminophen Tab [Tylenol] 1,000 mg PO Q6HR PRN #30 tablet PRN Reason: Pain Ondansetron Odt [Zofran ODT] 4 mg PO Q8HR PRN #9 tab PRN Reason: Nausea Clobetasol Propionate [Temovate 0.05% Cream] 1 applic TOPICAL BID Sertraline [Zoloft] 200 mg PO HS Lurasidone HCl [Latuda] 120 mg PO HS EPINEPHrine (Auto Inject) [Epipen] 0.3 mg SQ DIRECTED PRN PRN Reason: Anaphylaxis bisacodyL [Dulcolax] 5 mg PO TID PRN PRN Reason: Constipation Discharge Medication List ALPRAZolam [Xanax] 0.25 mg PO QAM PRN 12/17/15 [History] Dextroamphetamine/Amphetamine [Adderall Xr 30 mg Capsule] 30 mg PO DAILY 11/29/22 [History] Dextroamphetamine/Amphetamine [Dextroamp-Amphetamin 20 mg Tab] 40 mg PO DAILY@1300 11/29/22 [History] EPINEPHrine (Auto Inject) [Epipen] 0.3 mg SQ DIRECTED PRN 11/29/22 [History] Lurasidone HCl [Latuda] 120 mg PO HS 11/29/22 [History] Sertraline [Zoloft] 200 mg PO HS 11/29/22 [History] modafiniL [Provigil] 200 mg PO BID 11/29/22 [History] Acetaminophen Tab [Tylenol] 1,000 mg PO Q6HR PRN #30 tablet 05/11/23 [Rx] Ondansetron Odt [Zofran ODT] 4 mg PO Q8HR PRN #9 tab 05/11/23 [Rx] Clobetasol Propionate [Temovate 0.05% Cream] 1 applic TOPICAL BID 06/01/23 [History] bisacodyL [Dulcolax] 5 mg PO TID PRN 06/01/23 [History] Scopolamine 1 mg/72 Hr Patch [TransDerm Scop] 1 patch TRANSDERM Q72H 9 Days #3 patch 06/07/23 [Rx] Simethicone Chew [Mylicon Chew] 40 mg PO QID 7 Days #28 tab 06/07/23 [Rx] polyethylene glycoL 3350 [Miralax] 17 gm PO DAILY PRN packet 06/07/23 [Rx] Follow up Appointment(s)/Referral(s): Julius Santillan DO [Primary Care Provider] - 1-2 days Discharge Disposition: HOME SELF-CARE
[2023-06-07 14:15] VITALS: BP 117/74; PULSE 57; TEMP 97.5
== END 2023-06-07 14:51 | disposition home or self-care (01) ==
LOC: EC 14:37 → 6NMEDSUR 22:03 → OBSVTOIN 06-04 10:25 → INTOOBSV 06-04 10:25 → UNDODISIN 06-07 14:51
PROVIDERS: ADMIT Hospitalist; ATTEND Hospitalist
DX: E86.0 Dehydration (principal); E87.20 Acidosis, unspecified; K59.00 Constipation, unspecified; G89.18 Other acute postprocedural pain; R14.0 Abdominal distension (gaseous); R11.0 Nausea; R73.03 Prediabetes; I95.89 Other hypotension; J45.909 Unspecified asthma, uncomplicated; G47.33 Obstructive sleep apnea (adult) (pediatric); K57.90 Diverticulosis of intestine, part unspecified, without perforation or abscess without bleeding; E66.01 Morbid (severe) obesity due to excess calories; Z68.42 Body mass index [BMI] 45.0-49.9, adult; F31.9 Bipolar disorder, unspecified; F41.0 Panic disorder [episodic paroxysmal anxiety]; Z79.899 Other long term (current) drug therapy; Z88.1 Allergy status to other antibiotic agents; Z91.048 Other nonmedicinal substance allergy status; Z98.84 Bariatric surgery status; Z71.3 Dietary counseling and surveillance
CPT/HCPCS: 96376 ×6; 96361 ×7; 96375 ×3; 96374; 99285; 36415; 94760; 93005; 85379; 80053 ×2; 80048 ×2; 83690; 83735 ×2; 84100; 84484; 85025 ×3; 85027; 85610; 85730; 81001; 74240; 71275; 74177; G0378 ×7; J0780; J1100 ×6; J2405 ×7; C9113 ×6; Q9967

== ENCOUNTER → 2023-06-01 | Outpatient (CLI) | payer BC | LOC: PROCWHC3 13:16 | PROVIDERS: ATTEND Surgery | DX: E86.0 Dehydration (principal); Z88.1 Allergy status to other antibiotic agents; Z53.9 Procedure and treatment not carried out, unspecified reason ==

== ENCOUNTER → 2023-06-12 | Outpatient (CLI) | payer BC ==
--- NOTE | 2023-06-12 16:14 | P.BASOAP ---
Subjective Progress Note Date: 06/12/23 Principal diagnosis: Morbid obesity Patient returns for recheck. She was hospitalized last week with psychiatric issues and dehydration. Has done better since discharge. She states she is still hungry at times. Was eating cookies more than she would like to admit. Despite that has lost 8.5 pounds. She is having bowel movements now. No significant pain. Normal heart rate. Still somewhat low on her liquid intake. Says she has been sleeping quite a bit and attributes that to not taking her hypersomnia medications. Doing better with protein. Objective - Vital Signs Vital signs: Vital Signs Temp 98.8 F 06/12/23 15:29 Pulse 69 06/12/23 15:29 Resp 16 06/12/23 15:29 BP 117/83 06/12/23 15:29 Pulse Ox FiO2 Intake & Output 06/11/23 06/12/23 06/12/23 18:59 06:59 18:59 Weight 122.47 kg - Exam Abdomen: Soft, nondistended, nontender, incisions clean and dry Assessment/Plan (1) Morbid obesity Narrative/Plan: Patient slowly improving. Continue encouraging liquid and oral intake. Will have dietitian also contact her in the next day or so. Continue gradually advancing diet. Follow-up 2 weeks. Plan: Date: 06/12/23 Initial Weight: 131.088 kg Initial BMI: 48.8 Current Weight: 122.47 kg Current BMI: 45.6 Type of Surgery: Total Volume in Band: Previous Volume: Volume Removed: Volume Added: Band Size:
[2023-06-12 16:18] VITALS: BP 117/83; PULSE 69; RESP 16; TEMP 98.8; BMI 45.6
== END ==
LOC: BARWHC3 14:48
PROVIDERS: ATTEND Surgery
DX: E66.01 Morbid (severe) obesity due to excess calories (principal); E86.0 Dehydration; Z71.3 Dietary counseling and surveillance; Z88.8 Allergy status to other drugs, medicaments and biological substances; Z91.048 Other nonmedicinal substance allergy status; Z68.42 Body mass index [BMI] 45.0-49.9, adult
CPT/HCPCS: 99211

== ENCOUNTER → 2023-06-26 | Outpatient (CLI) | payer BC ==
--- NOTE | 2023-06-26 15:58 | P.BASOAP ---
Subjective Progress Note Date: 06/26/23 Principal diagnosis: Morbid obesity Patient returns for reevaluation. Doing okay since her last visit 2 weeks ago. Still having nausea issues. Takes Zofran twice a day and with that she is able to get by. Adequate liquid and protein intake. No pain. Does have a rash around 2 of her 4 incisions. Using clobetasol around the incision sites. Had some issues with depression and is staying at her mom's place for a week or so. Only a few episodes of vomiting. Eating solid foods. Objective - Vital Signs Vital signs: Vital Signs Temp Pulse Resp 16 06/26/23 15:38 BP Pulse Ox FiO2 - Exam Abdomen: Soft, nontender, nondistended, mild dermatitis around 2 of the 5 incision sites. Assessment/Plan (1) Morbid obesity Narrative/Plan: Patient doing better at this time. Continue optimizing liquid and protein intake. Continue Zofran for now. Will meet with dietitian today. Will check 1 month lab work. Follow-up 1 month. Plan: Date: 06/26/23 Initial Weight: 131.088 kg Initial BMI: Current Weight: Current BMI: Type of Surgery: Vertical Sleeve Gastrectomy Total Volume in Band: Previous Volume: Volume Removed: Volume Added: Band Size:
[2023-06-26 16:00] VITALS: RESP 16
[2023-06-26 16:01] VITALS: PULSE 90; TEMP 98.4; BMI 43.7
[2023-06-26 16:28] VITALS: BP 130/80
== END ==
LOC: BARWHC3 15:28
PROVIDERS: ATTEND Surgery
DX: E66.01 Morbid (severe) obesity due to excess calories (principal); R11.0 Nausea; Z71.3 Dietary counseling and surveillance; Z88.8 Allergy status to other drugs, medicaments and biological substances; Z91.048 Other nonmedicinal substance allergy status; Z68.41 Body mass index [BMI] 40.0-44.9, adult
CPT/HCPCS: 97802; 99211

== ENCOUNTER 2023-07-23 10:11 | Emergency (ER) | payer BC ==
[2023-07-23] MEDS: METOCLOPRAMIDE 5 MG/ML 2 ML VIAL IVP STA (10:51)
--- NOTE | 2023-07-23 10:53 | ED ---
General Adult HPI - General Source: patient, RN notes reviewed Mode of arrival: ambulatory Limitations: no limitations <Alisha Sutherland - Last Filed: 07/23/23 10:34> - General Source: patient, RN notes reviewed Mode of arrival: ambulatory Limitations: no limitations <Vicky Macedo - Last Filed: 07/23/23 16:04> - General Chief complaint: Recheck/Abnormal Lab/Rx Stated complaint: Abn Labs Time Seen by Provider: 07/23/23 10:20 - History of Present Illness Initial comments: Quick Noteis a 37-year-old female who presents the ED with a chief complaint of dehydration. Patient states that she had bariatric surgery in April and follows with her surgeon who instructed her to come to the ER for IV r ehydration. Patient states that she has been extremely nauseous and has had multiple bouts of emesis over the past few days. She states she has been unable to keep down liquids and her food over the past 2 days. Denies any fevers, chills, runny nose, cough, congestion. (Alisha Sutherland) This is a 37-year-old female who presents to the emergency department for nausea and vomiting. States that she has been very nauseous for the last couple of weeks and is struggling to keep much of anything down. She is using the Zofran that she has at home, however this has not been effective over the last couple of days. Denies any associated abdominal pain. Also denies any fever/chills. She did have bariatric surgery in April [address] Headley. States that he advised she go to the emergency department for IV fluids and further evaluation. (Vicky Macedo) - Related Data Home Medications Medication Instructions Recorded Confirmed ALPRAZolam [Xanax] 0.25 mg PO QAM PRN 12/17/15 06/26/23 Dextroamphetamine/Amphetamine 30 mg PO DAILY 11/29/22 06/26/23 [Adderall Xr 30 mg Capsule] Dextroamphetamine/Amphetamine 40 mg PO DAILY@1300 11/29/22 06/26/23 [Dextroamphetamine/Amphetamine 20 mg Tab] EPINEPHrine (Auto Inject) [Epipen] 0.3 mg SQ DIRECTED PRN 11/29/22 06/26/23 Lurasidone HCl [Latuda] 120 mg PO HS 11/29/22 06/26/23 Sertraline [Zoloft] 200 mg PO HS 11/29/22 06/26/23 modafiniL [Provigil] 200 mg PO BID 11/29/22 06/26/23 Clobetasol Propionate [Temovate 1 applic TOPICAL BID 06/01/23 06/26/23 0.05% Cream] Previous Rx's Medication Instructions Recorded Ondansetron Odt [Zofran ODT] 4 mg PO Q8HR PRN 5 Days #15 tab 06/07/23 polyethylene glycoL 3350 [Miralax] 17 gm PO DAILY PRN packet 06/07/23 Ondansetron [Zofran] 4 mg PO Q8HR PRN #60 tab 06/26/23 Metoclopramide [Reglan] 10 mg PO Q6H PRN #30 tab 07/23/23 Allergies Allergy/AdvReac Type Severity Reaction Status Date / Time doxycycline Allergy Anaphylaxis Verified 07/23/23 10:23 ADHESIVE - SURGICAL Allergy Rash/Hives Uncoded 07/23/23 10:23 Review of Systems ROS Other: All systems not noted in ROS Statement are negative. <Alisha Sutherland - Last Filed: 07/23/23 10:34> ROS Other: All systems not noted in ROS Statement are negative. <Vicky Macedo - Last Filed: 07/23/23 16:04> ROS Statement: Those systems with pertinent positive or pertinent negative responses have been documented in the HPI. Past Medical History Past Medical History: No Reported History, Asthma, Diabetes Mellitus, Sleep Apnea/CPAP/BIPAP Additional Past Medical History / Comment(s): pre-diabetic , bipolar, idiopathic hypersomnia, anxiety disorder History of Any Multi-Drug Resistant Organisms: None Reported Past Surgical History: No Surgical Hx Reported, Bariatric Surgery Additional Past Surgical History / Comment(s): wisdom teeth removal, hymenotomy 2019, 2010 lasic eye surgery both. Gastric sleeve 05/08/23 Past Anesthesia/Blood Transfusion Reactions: No Reported Reaction Additional Past Anesthesia/Blood Transfusion Reaction / Comment(s): No blood transfusion Past Psychological History: Anxiety, Bipolar, Depression, Panic Disorder Smoking Status: Never smoker, Unknown if ever smoked Past Alcohol Use History: Rare Past Drug Use History: None Reported - Past Family History Sister(s) Family Medical History: Cancer Additional Family Medical History / Comment(s): thyroid Father Family Medical History: Cancer Additional Family Medical History / Comment(s): skin <Alisha Sutherland - Last Filed: 07/23/23 10:34> General Exam Limitations: no limitations <Alisha Sutherland - Last Filed: 07/23/23 10:34> Limitations: no limitations General appearance: alert, in no apparent distress Head exam: Present: atraumatic, normocephalic, normal inspection Respiratory exam: Present: normal lung sounds bilaterally. Absent: respiratory distress, wheezes, rales, rhonchi, stridor Cardiovascular Exam: Present: regular rate, normal rhythm, normal heart sounds. Absent: systolic murmur, diastolic murmur, rubs, gallop, clicks GI/Abdominal exam: Present: soft, normal bowel sounds. Absent: distended, tenderness, guarding, rebound, rigid Neurological exam: Present: alert, oriented X3, CN II-XII intact Psychiatric exam: Present: normal affect, normal mood Skin exam: Present: warm, dry, intact, normal color. Absent: rash <Vicky Macedo - Last Filed: 07/23/23 16:04> - General Exam Comments Initial Comments: Visual Physical Exam Vital signs reviewed General: Well-appearing, nontoxic, no acute distress. Head: Normocephalic, atraumatic Eyes: PERRLA, EOMI ENT: Airway patent Chest: Nonlabored breathing Skin: No visual rash, normal skin tone Neuro: Alert and oriented 3 Musculoskeletal: No gross abnormalities (Alisha Sutherland) Course Vital Signs 07/23/23 07/23/23 10:21 13:35 Temperature 98.5 F 97.3 F L Pulse Rate 64 56 L Respiratory 20 18 Rate Blood Pressure 124/85 108/73 O2 Sat by Pulse 99 99 Oximetry Medical Decision Making <Alisha Sutherland - Last Filed: 07/23/23 10:34> - Lab Data Result diagrams: 07/23/23 10:48 07/23/23 10:48 <Vicky Macedo - Last Filed: 07/23/23 16:04> - Medical Decision Making I completed the quick note portion of this chart signed Alisha Sutherland PA-C (Alisha Sutherland) This is a 37-year-old female who presents to the emergency department for nausea and vomiting. Was pt. sent in by a medical professional or institution? @ -No Did you speak to anyone other than the patient for history? @ -No Did you review nursing and triage notes? @ -Yes, and I agree, it is accurate with regards to the patient's symptoms. Were old charts reviewed? @ -No Differential Diagnosis? @ -Differential Nausea and Vomiting: Gastroenteritis, cholecystitis, appendicitis, pancreatitis, migraine, benign positional vertigo, food borne illness, pyelonephritis, irritable bowel syndrome, influenza, Covid, GERD, incarcerated hernia, intestinal obstruction, this is not meant to be an all-inclusive list. EKG interpreted by me (3pts min.)? @ -Not obtained X-rays interpreted by me (1pt min.)? @ -Not obtained CT interpreted by me (1pt min.)? @ -Not obtained U/S interpreted by me (1pt. min.)? @ -Not obtained What testing was considered but not performed? (CT, X-rays, U/S, labs)? Why? @ -None What meds were considered but not given? Why? @ -None Did you discuss the management of the patient with other professionals? @ -No Did you reconcile home meds? @ -No Was smoking cessation discussed for >3mins.? @ -No Was critical care preformed (if so, how long)? @ -No Were there social determinants of health that impacted care today? How? (Homelessness, low income, unemployed, alcoholism, drug addiction, transportation, low edu. Level, literacy, decrease access to med. care, custodial, rehab)? @ -No Was there de-escalation of care discussed even if they declined? (Discuss DNR or withdrawal of care, Hospice)? @ -No What co-morbidities impacted this encounter? (DM, HTN, Smoking, COPD, CAD, Cancer, CVA, Hep., AIDS, mental health diagnosis, sleep apnea, morbid obesity)? @ -Morbid obesity, DM Was patient admitted / discharged? @ -Discharged. Lab work unremarkable. COVID, influenza, and RSV testing negative. Patient given IV fluids and Reglan with improvement in symptoms. She was tolerating oral intake at that point and felt stable for discharge home. Prescription for Reglan provided with dosing instructions reviewed. Advised that she take this with the Zofran if that is not effective. She will otherwise slowly advance her diet as tolerated, remain well-hydrated, and follow-up with her primary care provider and Dr. Headley. Patient discharged home in stable condition. Undiagnosed new problem with uncertain prognosis? @ -None Drug Therapy requiring intensive monitoring for toxicity (Heparin, Nitro, Insulin, Cardizem)? @ -None Were any procedures done? @ -None Diagnosis/symptom? @ -Nausea and vomiting Acute, or Chronic, or Acute on Chronic? @ -Acute Uncomplicated (without systemic symptoms) or Complicated (systemic symptoms)? @ -Uncomplicated Side effects of treatment? @ -None Exacerbation, Progression, or Severe Exacerbation] @ -Not applicable Poses a threat to life or bodily function? @ -No Return precautions reviewed in depth, the patient is instructed to return to the emergency department with any new, worsening, or concerning symptoms. Patient verbalized understanding. This case was discussed in detail with the attending ED physician, Dr. Miranda. Presentation, findings, and treatment plan discussed in detail as well. (Vicky Macedo) - Lab Data Lab Results 07/23/23 07/23/23 07/23/23 Range/Units 10:48 10:48 10:59 WBC 8.1 (3.8-10.6) k/uL RBC 4.40 (3.80-5.40) m/uL Hgb 13.7 (11.4-16.0) gm/dL Hct 42.1 (34.0-46.0) % MCV 95.6 (80.0-100.0) fL MCH 31.1 (25.0-35.0) pg MCHC 32.5 (31.0-37.0) g/dL RDW 14.8 (11.5-15.5) % Plt Count 252 (150-450) k/uL MPV 8.4 Neutrophils % 71 % Lymphocytes % 20 % Monocytes % 5 % Eosinophils % 1 % Basophils % 1 % Neutrophils # 5.8 (1.3-7.7) k/uL Lymphocytes # 1.7 (1.0-4.8) k/uL Monocytes # 0.4 (0-1.0) k/uL Eosinophils # 0.1 (0-0.7) k/uL Basophils # 0.0 (0-0.2) k/uL Sodium 138 (137-145) mmol/L Potassium 4.9 (3.5-5.1) mmol/L Chloride 106 (98-107) mmol/L Carbon Dioxide 24 (22-30) mmol/L Anion Gap 8 mmol/L BUN 12 (7-17) mg/dL Creatinine 0.61 (0.52-1.04) mg/dL Est GFR (CKD-EPI)AfAm >90 (>60 ml/min/1.73 sqM) Est GFR (CKD-EPI)NonAf >90 (>60 ml/min/1.73 sqM) Glucose 123 H (74-99) mg/dL Calcium 8.8 (8.4-10.2) mg/dL Phosphorus 4.1 (2.5-4.5) mg/dL Magnesium 1.7 (1.6-2.3) mg/dL Total Bilirubin 0.7 (0.2-1.3) mg/dL AST 33 (14-36) U/L ALT 16 (4-34) U/L Alkaline Phosphatase 73 (38-126) U/L Total Protein 7.5 (6.3-8.2) g/dL Albumin 4.4 (3.5-5.0) g/dL Urine Color Urine Appearance (Clear) Urine pH (5.0-8.0) Ur Specific [place] (1.001-1.035) Urine Protein (Negative) Urine Glucose (UA) (Negative) Urine Ketones (Negative) Urine Blood (Negative) Urine Nitrite (Negative) Urine Bilirubin (Negative) Urine Urobilinogen (<2.0) mg/dL Ur Leukocyte Esterase (Negative) Urine RBC (0-5) /hpf Urine WBC (0-5) /hpf Ur Squamous Epith Cells (0-4) /hpf Urine Bacteria (None) /hpf Hyaline Casts (0-2) /lpf Urine Mucus (None) /hpf Urine HCG, Qual (Not Detectd) Influenza Type A (PCR) Not Detected (Not Detectd) Influenza Type B (PCR) Not Detected (Not Detectd) RSV (PCR) Not Detected (Not Detectd) SARS-CoV-2 (PCR) Not Detected (Not Detectd) 07/23/23 07/23/23 Range/Units 12:00 12:05 WBC (3.8-10.6) k/uL RBC (3.80-5.40) m/uL Hgb (11.4-16.0) gm/dL Hct (34.0-46.0) % MCV (80.0-100.0) fL MCH (25.0-35.0) pg MCHC (31.0-37.0) g/dL RDW (11.5-15.5) % Plt Count (150-450) k/uL MPV Neutrophils % % Lymphocytes % % Monocytes % % Eosinophils % % Basophils % % Neutrophils # (1.3-7.7) k/uL Lymphocytes # (1.0-4.8) k/uL Monocytes # (0-1.0) k/uL Eosinophils # (0-0.7) k/uL Basophils # (0-0.2) k/uL Sodium (137-145) mmol/L Potassium (3.5-5.1) mmol/L Chloride (98-107) mmol/L Carbon Dioxide (22-30) mmol/L Anion Gap mmol/L BUN (7-17) mg/dL Creatinine (0.52-1.04) mg/dL Est GFR (CKD-EPI)AfAm (>60 ml/min/1.73 sqM) Est GFR (CKD-EPI)NonAf (>60 ml/min/1.73 sqM) Glucose (74-99) mg/dL Calcium (8.4-10.2) mg/dL Phosphorus (2.5-4.5) mg/dL Magnesium (1.6-2.3) mg/dL Total Bilirubin (0.2-1.3) mg/dL AST (14-36) U/L ALT (4-34) U/L Alkaline Phosphatase (38-126) U/L Total Protein (6.3-8.2) g/dL Albumin (3.5-5.0) g/dL Urine Color Yellow Urine Appearance Cloudy H (Clear) Urine pH 6.5 (5.0-8.0) Ur Specific [place] 1.026 (1.001-1.035) Urine Protein 1+ H (Negative) Urine Glucose (UA) Negative (Negative) Urine Ketones 1+ H (Negative) Urine Blood Moderate H (Negative) Urine Nitrite Negative (Negative) Urine Bilirubin 1+ H (Negative) Urine Urobilinogen 6.0 (<2.0) mg/dL Ur Leukocyte Esterase Small H (Negative) Urine RBC 2 (0-5) /hpf Urine WBC 8 H (0-5) /hpf Ur Squamous Epith Cells 5 H (0-4) /hpf Urine Bacteria Rare H (None) /hpf Hyaline Casts 3 H (0-2) /lpf Urine Mucus Many H (None) /hpf Urine HCG, Qual Not Detected (Not Detectd) Influenza Type A (PCR) (Not Detectd) Influenza Type B (PCR) (Not Detectd) RSV (PCR) (Not Detectd) SARS-CoV-2 (PCR) (Not Detectd) Disposition <Alisha Sutherland - Last Filed: 07/23/23 10:34> Is patient prescribed a controlled substance at d/c from ED?: No Time of Disposition: 12:36 <Vicky Macedo - Last Filed: 07/23/23 16:04> Clinical Impression: Nausea and vomiting Disposition: HOME SELF-CARE Instructions (If sedation given, give patient instructions): Acute Nausea and Vomiting (ED) Additional Instructions: Return to the emergency department with any new, worsening, or concerning symptoms. You can continue taking your Zofran up to every 8 hours as needed for nausea and vomiting. You can also take the Reglan prescribed up to every 6 hours alongside the Zofran if needed. Slowly advance your diet as tolerated and remain well-hydrated. Follow up with your primary care provider in 1-2 days. Prescriptions: Metoclopramide [Reglan] 10 mg PO Q6H PRN #30 tab PRN Reason: Nausea And Vomiting Referrals: Julius Santillan DO [Primary Care Provider] - 1-2 days
[2023-07-23] MEDS: SODIUM CHLORIDE 0.9% 1,000 ML IV STA ×2 (11:06→12:37)
[2023-07-23 11:13] LABS: Basophils % (A) 1 %; Eosinophils # (A) 0.1 k/uL (0-0.7); Eosinophils % (A) 1 %; HCT 42.1 % (34.0-46.0); HGB 13.7 gm/dL (11.4-16.0); Lymphocytes # (A) 1.7 k/uL (1.0-4.8); Lymphocytes % (A) 20 %; MCH 31.1 pg (25.0-35.0); MCHC 32.5 g/dL (31.0-37.0); MCV 95.6 fL (80.0-100.0); Mean Platelet Volume 8.4; Monocytes # (A) 0.4 k/uL (0-1.0); Monocytes % (A) 5 %; Neutrophils # (A) 5.8 k/uL (1.3-7.7); Neutrophils % (A) 71 %; Platelet Count 252 k/uL (150-450); RDW 14.8 % (11.5-15.5); WBC 8.1 k/uL (3.8-10.6)
[2023-07-23 11:42] LABS: ALT 16 U/L (4-34); AST 33 U/L (14-36); African American GFR (CKD) >90 (>60 ml/min/1.73 sqM); Albumin 4.4 g/dL (3.5-5.0); Alkaline Phosphatase 73 U/L (38-126); Anion Gap 8 mmol/L; Blood Urea Nitrogen 12 mg/dL (7-17); Calcium 8.8 mg/dL (8.4-10.2); Carbon Dioxide 24 mmol/L (22-30); Chloride 106 mmol/L (98-107); Glucose 123 mg/dL (74-99); Magnesium 1.7 mg/dL (1.6-2.3); Non-African American GFR(CKD) >90 (>60 ml/min/1.73 sqM); Phosphorus 4.1 mg/dL (2.5-4.5); Potassium 4.9 mmol/L (3.5-5.1); Sodium 138 mmol/L (137-145); Total Bilirubin 0.7 mg/dL (0.2-1.3); Total Protein 7.5 g/dL (6.3-8.2)
[2023-07-23 13:15] LABS: Appearance,Urine Cloudy (Clear); Bacteria,Urine Rare /hpf; Bilirubin,Urine 1+ (Negative); Blood,Urine Moderate (Negative); Color,Urine Yellow; Glucose,Urine (UA) Negative (Negative); Hyaline Casts,Urine 3 /lpf (0-2); Ketones,Urine 1+ (Negative); Leukocyte Esterase,Urine Small (Negative); Mucus,Urine Many /hpf; Nitrite,Urine Negative (Negative); PH, Urine 6.5 (5.0-8.0); Protein,Urine 1+ (Negative); RBC,Urine 2 /hpf (0-5); Specific Gravity,Urine 1.026 (1.001-1.035); Squamous Epithelial Cell,Urine 5 /hpf (0-4); WBC,Urine 8 /hpf (0-5)
[2023-07-23 14:17] VITALS: BP 108/73; PULSE 56; RESP 18; TEMP 97.3
== END 2023-07-23 13:57 | disposition home or self-care (01) ==
LOC: EC 10:11
DX: R11.2 Nausea with vomiting, unspecified (principal); E66.01 Morbid (severe) obesity due to excess calories; J45.909 Unspecified asthma, uncomplicated; E11.9 Type 2 diabetes mellitus without complications; F31.9 Bipolar disorder, unspecified; F41.9 Anxiety disorder, unspecified; Z20.822 Contact with and (suspected) exposure to COVID-19; Z79.899 Other long term (current) drug therapy; Z88.1 Allergy status to other antibiotic agents; Z91.048 Other nonmedicinal substance allergy status
CPT/HCPCS: 36415; 80053; 83735; 84100; 85025; 81001; 81025; 87636; 99283; 96374; 96361 ×2; J2765

== ENCOUNTER → 2023-08-14 | Outpatient (CLI) | payer BC ==
[2023-08-14 16:04] VITALS: BP 143/103; PULSE 105; RESP 16; TEMP 98.3; BMI 40.7
--- NOTE | 2023-08-14 17:14 | P.BASOAP ---
Subjective Progress Note Date: 08/14/23 Principal diagnosis: Morbid obesity Patient returns for recheck. Last seen in June. She went to the ER earlier this month. She had fluid hydration done. Patient says she is still dealing with daily nausea. She is taking Zofran 8 mg 1-2 times daily. She was given a prescription for Reglan but never started it. Denies pain. No GERD symptoms. Objective - Vital Signs Vital signs: Vital Signs Temp 98.3 F 08/14/23 16:00 Pulse 105 H 08/14/23 16:00 Resp 16 08/14/23 16:00 BP 143/103 08/14/23 16:00 Pulse Ox FiO2 Intake & Output 08/13/23 08/14/23 08/14/23 18:59 06:59 18:59 Weight 109.316 kg - Exam Abdomen: Soft, nontender, nondistended, incisions clean and dry Assessment/Plan (1) Morbid obesity Narrative/Plan: Patient seems to be doing slowly better. Continue antiacids and Zofran as needed. Try Reglan prescribed from ER recently. Discussed with patient that trying more dense foods at this point and more solid foods may actually be beneficial to help stretch the band slightly. She is due for 3-month labs. These have been reordered. Follow-up 1 month. Plan: Date: 08/14/23 Initial Weight: 131.088 kg Initial BMI: 48.8 Current Weight: 109.316 kg Current BMI: 40.7 Type of Surgery: Vertical Sleeve Gastrectomy Total Volume in Band: Previous Volume: Volume Removed: Volume Added: Band Size:
== END ==
LOC: BARWHC3 15:40
PROVIDERS: ATTEND Surgery
DX: E66.01 Morbid (severe) obesity due to excess calories (principal); R11.0 Nausea; Z71.3 Dietary counseling and surveillance; Z68.41 Body mass index [BMI] 40.0-44.9, adult; Z91.048 Other nonmedicinal substance allergy status; Z88.1 Allergy status to other antibiotic agents
CPT/HCPCS: 99211

== ENCOUNTER → 2023-09-20 | Outpatient (CLI) | payer BC ==
[2023-09-20 16:39] VITALS: BP 126/79; PULSE 88; RESP 16; TEMP 97.9
--- NOTE | 2023-09-20 16:44 | P.PN ---
Subjective DATE: 09/20/2023 FOLLOW UP VISIT. Patient with obstructive sleep apnea hypopnea syndrome return to sleep center for follow-up visit. Information from previous visit have been reviewed. Patient is using PAP equipment every night for the whole night, getting PAP supplies in time. The patient does not have significant problems with the mask, PAP unit and humidification. Draper sleepiness scale is significantly increased to 19. I checked information from PAP unit. PAP unit pressure 5-15, average 10.5 cm H2O. Usage is 60% , average 7.6 hours per night. Leak is 4.1 l/m, which is in acceptable range. Apnea Hypopnea Index is 0.7, which is normal. MEDICATIONS:1. Adderall 30 mg twice a day 2. Modafinil 200 mg 2 tablets in the morning 3. Sertraline 100 mg 2 tablets once a day 4. Omeprazole 40 mg once a day 5. Alprazolam 1 mg as needed 6. Lurasidone 120 mg once a day During physical exam: GENERAL: A pleasant patient without any distress. VITAL SIGNS: Please see below, weight 231.4. HEENT: PERRLA, EOMI.low position of soft palate, Mallapati 3 . NECK: Supple. No JVD. LUNGS: Clear to percussion and to auscultation. Good air exchange. No wheezing or rhonchi. HEART: S1, S2 regular. ABDOMEN: Soft and nontender.[] EXTREMITIES: No clubbing or cyanosis. MENTAL HEALTH ASSOCIATE: Awake, alert, and oriented x3. No focal deficit. Impressions: 1. Obstructive sleep apnea-hypopnea syndrome. Patient demonstrated borderline compliance with treatment, benefiting from treatment. 2. Narcolepsy, confirmed by multiple sleep latency test with mean sleep latency 3.6 minutes. No sleep onset REM have been documented but patient was on SSRIs which may decrease amount of REM sleep. 3. Obesity, patient lost 67 pounds since bariatric surgery in April 2023. 4. History of anxiety. 5. History of depression. 6. Seasonal allergy. 7. History of asthma. 8. History of acne. Plan: 1. Continue using PAP equipment every night for the whole night. 2. To change air filter at least 1-2 times per month. 3. PAP unit should stay lower then position of the head. 4. Advised patient to remove all remaining water from humidifier canister daily and make it dry after each usage. Refill canister with fresh distilled water before each usage. 5. Sleep hygiene with regular time in bed for at least 8 hours. 6. Precautions related to driving. No driving if feel any sleepiness. 7. I will maintain prescription for PAP supplies including mask, tube, filters. 8. Follow up visit in 6 months or earlier if patient has any problems. 9. Watching and continue losing weight. 10. Patient will continue treatment with Adderall 30 mg twice a day and modafinil 200 mg 2 tablets in the morning. Thank you very much for allowing me to participate in the management of your patient. Jose Francisco Jimenes MD, PhD, FAASM. Diplomat of [employer], Sleep Medicine Board by [employer] [facility] [place] Objective - Vital Signs Vital signs: Vital Signs Temp 97.9 F 09/20/23 16:26 Pulse 88 09/20/23 16:26 Resp 16 09/20/23 16:26 BP 126/79 09/20/23 16:26 Pulse Ox 95 09/20/23 16:26 FiO2 Intake & Output 09/19/23 09/20/23 09/20/23 18:59 06:59 18:59 Weight 104.893 kg
== END ==
LOC: 3 N SLEEP 16:10
PROVIDERS: ATTEND Internal Medicine
DX: G47.33 Obstructive sleep apnea (adult) (pediatric) (principal); E66.9 Obesity, unspecified; F32.A Depression, unspecified; F41.9 Anxiety disorder, unspecified; G47.419 Narcolepsy without cataplexy; J30.2 Other seasonal allergic rhinitis; Z87.09 Personal history of other diseases of the respiratory system; Z99.89 Dependence on other enabling machines and devices; Z79.899 Other long term (current) drug therapy; Z87.2 Personal history of diseases of the skin and subcutaneous tissue; Z88.1 Allergy status to other antibiotic agents; Z91.048 Other nonmedicinal substance allergy status
CPT/HCPCS: 99212

== ENCOUNTER → 2023-09-25 | Outpatient (CLI) | payer BC ==
[2023-09-25 16:02] VITALS: BP 133/94; PULSE 92; RESP 16; TEMP 98.5; BMI 39.0
--- NOTE | 2023-09-25 19:12 | P.BASOAP ---
Subjective Progress Note Date: 09/25/23 Principal diagnosis: Morbid obesity Patient returns for recheck. Last seen 6 weeks ago. Patient states she has not been getting enough liquids in. Sometimes between 15 and 25 ounces per day. No pain. Says she is nauseated every day. Nothing sounds good to drink. Because of the nausea she is avoiding solid foods mostly. She has had some rare episodes of vomiting. Denies dysphagia. She has lost 10 pounds since her last visit. No abdominal pain. No fevers. Heart rate 90s. Patient has been drinking diet Coke. Objective - Vital Signs Vital signs: Vital Signs Temp 98.5 F 09/25/23 15:51 Pulse 92 09/25/23 15:51 Resp 16 09/25/23 15:51 BP 133/94 09/25/23 15:51 Pulse Ox FiO2 Intake & Output 09/24/23 09/25/23 09/25/23 18:59 06:59 18:59 Weight 104.78 kg - Exam Abdomen: Soft, nontender, nondistended Assessment/Plan (1) GERD (gastroesophageal reflux disease) Narrative/Plan: 37-year-old female with no nausea and decreased oral intake post sleeve gastrectomy 6 months ago. Patient has been drinking a little bit more these last few days. Remains on Zofran. Says that last time she received IV fluids as an outpatient a month or 2 ago it did not help with her nausea symptoms. Last visit she and I discussed proceeding with upper endoscopy if symptoms persisted. Will plan EGD in the next 1 to 2 weeks. Continue antiacids and antiemetics. Plan: Date: 09/25/23 Initial Weight: 131.088 kg Initial BMI: 48.8 Current Weight: 104.78 kg Current BMI: 39.0 Type of Surgery: Total Volume in Band: Previous Volume: Volume Removed: Volume Added: Band Size:
== END ==
LOC: BARWHC3 15:38
PROVIDERS: ATTEND Surgery
DX: K21.9 Gastro-esophageal reflux disease without esophagitis (principal); E66.01 Morbid (severe) obesity due to excess calories; R11.2 Nausea with vomiting, unspecified; Z71.3 Dietary counseling and surveillance; Z88.1 Allergy status to other antibiotic agents; Z91.048 Other nonmedicinal substance allergy status; Z68.39 Body mass index [BMI] 39.0-39.9, adult
CPT/HCPCS: 99211

== ENCOUNTER → 2024-04-22 | Outpatient (CLI) | payer BC ==
[2024-04-22 15:55] VITALS: BP 145/97; PULSE 125; RESP 16; TEMP 98.1
--- NOTE | 2024-04-22 15:57 | P.BASOAP ---
Subjective Progress Note Date: 04/22/24 Principal diagnosis: Morbid obesity Patient returns for recheck. Patient has not been in since September. She has done much better however since then. No longer having any nausea issues or dysphagia. Still not drinking much. Only drinks about 32 ounces a day. Still not taking in much protein either. Says nothing with protein taste good. No heartburn. No antiacid use. Does not take vitamins. Has never had her labs drawn. She states that is why she never came back to see us because she is afraid of needles and did not want to get her labs drawn. She has lost 7 pounds since her last visit. Currently at 224. Her lowest weight was 219. Not exercising. Objective - Exam Abdomen: Soft, nontender, nondistended Assessment/Plan (1) Morbid obesity Narrative/Plan: 38-year-old female post sleeve gastrectomy 1 year ago. Patient has had fairly decent weight loss with the surgery. Unfortunately patient has not followed some of our postoperative recommendations. She has not had labs drawn. We have ordered 1 year labs at this time. We have encouraged her to begin exercising on a regular basis. We would like for her to see the dietitian which she declined earlier today when asked. She will try to see the dietitian next visit. Plan recheck 3 months. Plan: Date: Initial Weight: 131.088 kg Initial BMI: Current Weight: Current BMI: Type of Surgery: Total Volume in Band: Previous Volume: Volume Removed: Volume Added: Band Size:
[2024-04-22 15:58] VITALS: BMI 37.8
== END ==
LOC: BARWHC3 15:41
PROVIDERS: ATTEND Surgery
DX: E66.01 Morbid (severe) obesity due to excess calories (principal); Z68.37 Body mass index [BMI] 37.0-37.9, adult; Z91.048 Other nonmedicinal substance allergy status; Z88.1 Allergy status to other antibiotic agents
CPT/HCPCS: 99211

== ENCOUNTER → 2024-07-29 | Outpatient (CLI) | payer BC ==
[2024-07-29 15:48] VITALS: BP 137/83; PULSE 95; RESP 16; TEMP 98.2; BMI 36.6
--- NOTE | 2024-07-29 16:09 | P.BASOAP ---
Subjective Progress Note Date: 07/29/24 Principal diagnosis: Morbid obesity Patient returns for recheck. Unfortunately patient has developed the flu since last week. She has had 2 sick contacts. Diarrhea and vomiting intermittently. Overall getting better but still somewhat nauseous. Asking for a antiemetic. Patient has maintained her weight in the 220s. Never did have her labs drawn. States she probably will not do that given her fear of needles. Random episodes of GERD. Controlled with Tums. She does not have any omeprazole any longer. Objective - Vital Signs Vital signs: Vital Signs Temp 98.2 F 07/29/24 15:44 Pulse 95 07/29/24 15:44 Resp 16 07/29/24 15:44 BP 137/83 07/29/24 15:44 Pulse Ox FiO2 Intake & Output 07/28/24 07/29/24 07/29/24 18:59 06:59 18:59 Weight 98.43 kg - Exam Abdomen: Soft, nontender, nondistended Assessment/Plan (1) Morbid obesity Narrative/Plan: Overall patient doing fairly well after previous sleeve gastrectomy. Weight has been maintained in the 220s. Sick now from likely gastroenteritis. Will send prescription for omeprazole, scopolamine patch, Zofran. Will order labs once again although she probably will not have those drawn. Continue encouraging exercise. Recheck 3 months. Plan: Date: 07/29/24 Initial Weight: 131.088 kg Initial BMI: 48.8 Current Weight: 98.43 kg Current BMI: 36.6 Type of Surgery: Total Volume in Band: Previous Volume: Volume Removed: Volume Added: Band Size:
== END ==
LOC: BARWHC3 15:38
PROVIDERS: ATTEND Surgery
DX: E66.01 Morbid (severe) obesity due to excess calories (principal); Z68.36 Body mass index [BMI] 36.0-36.9, adult; Z91.048 Other nonmedicinal substance allergy status; Z88.1 Allergy status to other antibiotic agents
CPT/HCPCS: 99211

== ENCOUNTER → 2024-11-25 | Outpatient (CLI) | payer BC ==
[2024-11-25 15:49] VITALS: BP 133/93; PULSE 85; RESP 16; TEMP 97.5; BMI 38.0
--- NOTE | 2024-11-25 16:03 | P.BASOAP ---
Subjective Progress Note Date: 11/25/24 Principal diagnosis: Morbid obesity Patient returns for recheck. Last seen in July. He has gained a slight weight since then only a few pounds. Denies nausea or vomiting. No GERD symptoms. Never took her antiacids that were prescribed last time. Only has some reflux when laying flat. She just avoids this by not eating close to bedtime. Patient never had her labs drawn and refuses to do so. Says she is focusing on drinking more water now. Will join a gym membership in the follow-up. For now she is walking more outside. Denies pain. Objective - Vital Signs Vital signs: Vital Signs Temp 97.5 F L 11/25/24 15:46 Pulse 85 11/25/24 15:46 Resp 16 11/25/24 15:46 BP 133/93 11/25/24 15:46 Pulse Ox FiO2 Intake & Output 11/24/24 11/25/24 11/25/24 18:59 06:59 18:59 Weight 102.058 kg - Exam Abdomen: Soft, nontender, nondistended Assessment/Plan (1) Morbid obesity Narrative/Plan: Patient doing well at this time. Continue monitoring caloric intake. Continue encouraging liquid hydration. Increase degree of exercise. Follow-up 1 year. Plan: Date: 11/25/24 Initial Weight: 131.088 kg Initial BMI: 48.8 Current Weight: 102.058 kg Current BMI: 38.0 Type of Surgery: Vertical Sleeve Gastrectomy Total Volume in Band: Previous Volume: Volume Removed: Volume Added: Band Size:
== END ==
LOC: BARWHC3 15:41
PROVIDERS: ATTEND Surgery
DX: E66.01 Morbid (severe) obesity due to excess calories (principal); Z68.38 Body mass index [BMI] 38.0-38.9, adult; Z88.8 Allergy status to other drugs, medicaments and biological substances; Z88.1 Allergy status to other antibiotic agents
CPT/HCPCS: 99211